=== PATIENT | male | born 1960 | race Caucasian/White ===

== ENCOUNTER → 2018-02-22 10:36 | Outpatient (CLI) | payer OTHER, SELFPAY | PROVIDERS: Visit Provider Family Medicine | DX: R07.1 Chest pain on breathing (principal) | CPT/HCPCS: 93017; 93350 ==

== ENCOUNTER → 2020-03-05 | Outpatient (CLI) | payer OTHER, SELFPAY ==
[2020-03-05 08:26] LABS: Cholesterol 161 mg/dL (200); High Density Lipoprotein 54 mg/dL; PSA,Total - Annual Screen 2.73 ng/mL (0.00-4.00); Triglycerides 57 mg/dL; Very Low Density Lipoprotein 11 mg/dL (5-40)
[2020-03-05 08:56] LABS: Hemoglobin A1c 5.5 % (3.8-5.6)
== END | disposition home or self-care (01) ==
LOC: LAB 06:20
PROVIDERS: PCP Family Medicine
DX: E74.39 Other disorders of intestinal carbohydrate absorption (principal); Z12.5 Encounter for screening for malignant neoplasm of prostate; Z13.220 Encounter for screening for lipoid disorders
CPT/HCPCS: 36415; 80061; 83036; 84153; G0103

== ENCOUNTER 2020-12-08 11:07 | Emergency (ER) | payer OTHER, SELFPAY ==
[2020-12-08 11:07] VITALS: BP 147/84; PULSE 78; RESP 16; TEMP 36.8; O2SAT 100; BMI 28.5
--- NOTE | 2020-12-08 11:16 | US_ITS ---
STUDY: SCROTUM ULTRASOUND REASON FOR EXAM: Male, 60 years old. RT SIDED TESTICULAR PAIN TECHNIQUE: Ultrasound evaluation of the scrotum was performed with color Doppler and static childs-scale imaging. COMPARISON: None. FINDINGS: RIGHT TESTICLE INTRATESTICULAR: There is a normal size of the right testicle. The right testicle measures 4.4 x 3.8 x 1.9 cm. There is a homogenous echotexture. There is normal arterial and normal venous vascularity. There is no demonstrated right testicular mass or cyst. EXTRATESTICULAR: The epididymis is normal in size. The epididymis head measures 1.1 x 1.2 x 0.9 cm. There is normal vascularity of the epididymis. There is no demonstrated epididymal cystic structure. There is no demonstrated hydrocele. There is no demonstrated varicocele. There is no demonstrated extratesticular mass or cyst. LEFT TESTICLE INTRATESTICULAR: There is a normal size of the left testicle. The left testicle measures 4.7 x 2.4 x 2.1 cm. There is a homogenous echotexture. There is normal arterial and normal venous vascularity. There is no demonstrated left testicular mass or cyst. EXTRATESTICULAR: The epididymis is 1.0 x 1.6 x 0.7 The epididymis head measures cm. There is normal vascularity of the epididymis. There is no demonstrated epididymal cystic structure. There is no demonstrated hydrocele. There is no demonstrated varicocele. There is no demonstrated extratesticular mass or cyst. US/Testicular with Arterial Flow IMPRESSION: Normal bilateral testicles. Electronically Signed: Tyrone Walker MD at 12:21 EDT Tel , Service support ,
--- NOTE | 2020-12-08 11:17 | EDS_ITS ---
HPI History of Present Illness Chief Complaint: Male Pain/Injury Informant: patient Pain Onset: Days Context: Gradual Onset Timing: Intermittent Current Severity: Moderate Maximum Severity: Moderate Appearance Lesion(s): No Genital Edema: No Penile Discharge Genital Discharge Amount: None Urinary Symptoms Genitourinary Symptoms: Urgency, Frequency and Hematuria Narrative Narrative: Patient presents with dysuria, frequency, and right testicular pain. He states the symptoms began about 4 days ago. He states that he noticed that he was having some increased urinary frequency and urgency. He states that yesterday, he noted some mild hematuria. He states overnight throughout the morning, he began to have increasing pain in his right testicle. He states it hurts to sit and walk. He denies any trauma. He thinks he had a low-grade fever last night. He denies nausea or vomiting. He is otherwise been in his normal state of health. [facility] Medical History Hypertension Scoliosis deformity of spine Home Medications Cetirizine Hcl [Zyrtec] 10 mg PO DAILY 01/02/15 [History Last Taken Unknown] lisinopril 10 mg PO DAILY 01/02/15 [History Last Taken 09/29/15 09:00 10] amlodipine 5 mg PO QHS 12/08/20 [History Last Taken Unknown] ciprofloxacin HCl 500 mg PO BID #20 tablet 12/08/20 [Rx Last Taken Unknown] hydrocodone-acetaminophen 1 tab PO Q6H PRN PRN 3 Days #10 tablet 12/08/20 [Rx Last Taken Unknown] melatonin 10 mg PO QHS 12/08/20 [History Last Taken Unknown] multivitamin with minerals [All Purpose Multivitamin-Min] 1 tab PO DAILY 12/08/20 [History Last Taken Unknown] naproxen 250 mg PO BID 12/08/20 [History Last Taken Unknown] tizanidine 4 mg PO QHS 12/08/20 [History Last Taken Unknown] tramadol 50 mg PO BID PRN 12/08/20 [History Last Taken Unknown] Allergy/AdvReac Type Severity Reaction Status Date / Time orphenadrine citrate AdvReac Severe Hives, Verified 12/08/20 11:09 [From Norflex] restricted airway Family History Mother Heart disease Diabetes type 2, uncontrolled S/P CABG x 4 Glaucoma Father Stage 4 malignant neoplasm of lung Surgical History History of spinal fusion for scoliosis Hx of cholecystectomy Social History Smoking Status: Former smoker ROS ROS ED Constitutional Constitutional ED: Reports fever(s) Eyes Eyes: Denies blurry vision or change in vision ENT ENT ED: Denies ear pain or sore throat Cardiovascular Cardiovascular: Denies chest pain or palpitations Respiratory/Chest Respiratory/Chest: Denies cough, dyspnea or dyspnea on exertion Gastrointestinal Gastrointestinal: Reports nausea Genitourinary Genitourinary ED: Reports dysuria, hematuria and urinary frequency Musculoskeletal Musculoskeletal: Denies arthralgias or myalgias Integumentary Denies rash Neurologic Neurologic: Denies headache(s) or paresthesias Psychiatric Psychiatric: Denies anxiety or depression Endocrine Endocrinology: Denies polydipsia or polyuria Allergic/Immunologic Allergic/Immunologic ED: Denies urticaria EXAM Physical Exam Const Vital Signs: 12/08/20 11:07 Temperature 98.3 F Temperature Source Temporal Pulse Rate 78 Respiratory Rate 16 Blood Pressure 147/84 H Blood Pressure Mean 105 Pulse Ox 100 Oxygen Delivery Method Room Air Positive well nourished and well developed General Appearance ED: well developed HEENT Reports normocephalic, head/scalp atraumatic and moist mucous membranes Eyes PERRL and EOMs intact bilaterally Neck no lymphadenopathy and supple General: Negative for tenderness Chest Wall inspection of chest normal Resp normal respiratory effort and clear to auscultation bilaterally Cardio regular rate, regular rhythm and no murmurs GI normal to inspection, nondistended, normoactive bowel sounds Palpation: Negative for tender, guarding or rebound tenderness present Penis: normal penis Meatus: meatus normal Scrotum: cremasteric reflex present, tenderness, edematous and scrotal swelling Testes: testicular lie normal Back/Spine no CVA tenderness Cervical Spine: Negative for cervical spine tenderness Thoracic Spine / Upper Back: Negative for thoracic spinal tenderness Extremity normal to inspection General Extremety ED: Negative for tenderness Neuro oriented x3 and CN's II-XII intact bilaterally Neuro Narrative: No focal deficits appreciated. Sensorium / Orientation: alert Psych mental status grossly normal Skin no rashes or lesions noted, no wounds and skin turgor normal MDM MDM MDM Narrative Medical decision making narrative: Patient presents to the emergency department for testicular pain, mild nausea, and low-grade fever. Clinically, I do suspect that he has epididymitis. I did obtain ultrasound which showed normal testicles. There is no evidence of torsion. With his history of kidney stone, I did obtain CT. This shows no obstructing stone. His urine does show trace evidence of infection and I did add a culture. I do feel the most prudent thing would be to treat him for an early epididymitis even though his ultrasound was inconclusive. The patient is comfortable with this plan of care. He will be discharged home. Impression 1. Epididymitis Lab Data Attestation: I reviewed the patient's lab results. Labs: Laboratory Results - last 24 hr 12/08/20 13:49 Urine Color Yellow Urine Clarity Clear Urine pH 7.0 Ur Specific [place] 1.005 Urine Protein Negative Urine Glucose (UA) Normal Urine Ketones Negative Urine Occult Blood Negative Urine Nitrite Negative Urine Bilirubin Negative Urine Urobilinogen Normal Ur Leukocyte Esterase 100 H Urine RBC 0-5 SEEN Urine WBC 0-5 SEEN Ur Squamous Epith Cells 0-5 SEEN Urine Bacteria RARE Urine Mucus 0 SEEN Radiography Diagnostic Testing: Radiology Impression Testicular Ultrasound 12/08/20 11:16 IMPRESSION: Normal bilateral testicles. Electronically Signed: Tyrone Walker MD at 12:21 EDT Tel , Service support , Abdomen/Pelvis CT 12/08/20 12:36 IMPRESSION: Multiple nonobstructing right renal stones. Electronically Signed: Tyrone Walker MD at 13:18 EDT Tel , Service support , Discharge Plan Triage Chief Complaint: Male Pain/Injury ED Provider: Joseluis Colunga Dx/Rx/DC Orders Instructions: ED Epididymitis Prescriptions: New hydrocodone-acetaminophen [hydrocodone-acetaminophen] 1 TABLET tablet 1 tab PO Q6H PRN PRN (Reason: Pain) 3 Days Qty: 10 RF: 0 ciprofloxacin HCl [ciprofloxacin HCl] 500 MG tablet 500 mg PO BID Qty: 20 RF: 0 No Action lisinopril 10 MG tablet 10 mg PO DAILY RF: 0 Cetirizine Hcl [Zyrtec] 10 MG tablet 10 mg PO DAILY RF: 0 naproxen 250 mg Tablet 250 mg PO BID RF: 0 tramadol 50 mg Tablet 50 mg PO BID PRN (Reason: Pain) RF: 0 amlodipine 10 mg Tablet 5 mg PO QHS RF: 0 multivitamin with minerals [All Purpose Multivitamin-Min] Tablet 1 tab PO DAILY RF: 0 tizanidine 4 mg Capsule 4 mg PO QHS RF: 0 melatonin 5 mg Tablet 10 mg PO QHS RF: 0 Primary Care Provider: Caesar Ricketts Referrals: Caesar Ricketts MD [Primary Care Provider] -
[2020-12-08] MEDS: Ibuprofen 600 MG Tablet PO (11:32)
--- NOTE | 2020-12-08 12:36 | CT_ITS ---
STUDY: CT ABDOMEN AND PELVIS WITHOUT CONTRAST REASON FOR EXAM: Male, 60 years old. right lq pain, right flank RADIATION DOSAGE (If Supplied By Facility): CTDIvol = ( 13.47 ) mGy, DLP = ( 806.45 ) mGycm TECHNIQUE: Transaxial images were obtained from the dome of the diaphragm to the symphysis pubis without oral contrast, and without intravenous contrast. Sagittal and coronal images were reconstructed. Individualized dose optimization techniques were used for this CT. COMPARISON: None. FINDINGS: The visualized lung bases are unremarkable. The visualized portions of the heart are within normal limits. Normal liver. There are surgical clips in the gallbladder fossa consistent with a prior cholecystectomy. Normal spleen. Normal pancreas. Normal bilateral adrenal glands. Multiple nonobstructing stones the right kidney. No hydronephrosis, ureteral stone, or ureteral dilatation. 2.5 cm cyst lower pole the left kidney. There is a small hiatal hernia. Normal small intestine. Normal colon. The appendix is visualized and appears normal. Normal abdominal aorta. Normal inferior vena cava. Normal retroperitoneum. Normal urinary bladder. There is a small umbilical hernia containing fat. Severe levoscoliosis of the thoracolumbar spine with spinal rods and degenerative disc disease. CT/Abdomen/Pelvis without Cont IMPRESSION: Multiple nonobstructing right renal stones. Electronically Signed: Tyrone Walker MD at 13:18 EDT Tel , Service support ,
[2020-12-08 13:49] LABS: Color, Urine Yellow (Yellow); Glucose, Dipstick Normal (Normal); Ketone-Dipstick Negative (Negative); Leukocyte Esterase-Dipstick 100 /ul (Negative); Mucous, Urine 0 SEEN /hpf (<or=2+); Nitrite-Dipstick Negative (Negative); Occult Blood-Urine Negative /ul (Negative); Protein-Dipstick Negative (Negative); Specific Gravity, Urine 1.005 (1.002-1.030); Urine Bilirubin Dipstick Negative (Negative); Urine Clarity Clear (Clear); Urine Urobilinogen Normal (Normal)
[2020-12-08 13:55] LABS: Bacteria RARE /hpf (None Seen); Red Blood Cells-Urine 0-5 SEEN /hpf (0-5); Squamous Epithelial Cells - UA 0-5 SEEN /hpf (0-5); White Blood Cells 0-5 SEEN /hpf (0-5)
== END 2020-12-08 14:15 | disposition home or self-care (01) ==
LOC: ED 13:08
PROVIDERS: Emergency Provider Emergency Medicine; PCP Family Medicine
DX: N45.1 Epididymitis (principal); I10 Essential (primary) hypertension; Z79.899 Other long term (current) drug therapy; Z87.891 Personal history of nicotine dependence
CPT/HCPCS: 74176; 76870; 81001; 87086; 93976; 99282

== ENCOUNTER 2020-12-26 08:23 | Emergency (ER) | payer OTHER, SELFPAY ==
[2020-12-26 08:23] VITALS: BP 140/96; PULSE 79; RESP 16; TEMP 36.1; O2SAT 97; BMI 28.4
--- NOTE | 2020-12-26 08:46 | EX.ED.DYSGE1 ---
HPI History of Present Illness Chief Complaint: Lower Extremity Injury Detail of Chief Complaint: Sciatica pain x2 days Informant: patient Onset/Context/Timing Current Severity: Severe Narrative Narrative: Patient with history of sciatica. Presents with worsening pain for 2 days. Patient states that he got on the floor this morning the stretch and had a hard time getting back up because of the amount of pain. He has a history of chronic back pain and is currently in pain management with Dr. Morse. Patient states that has been without his tramadol and muscle relaxer for the last month because he missed an appointment due to work and could not reschedule. Patient has an appointment to see his pain management doctor in 4 days. Patient denies weakness of the extremities. He denies change in bowel or bladder function. He denies paresthesias. Patient has history of Atkinson rods in his back. Patient states his last MRI was about 2 years ago did not show any significant herniations. Prior similar symptoms: Yes PFSH [facility] Medical History Hypertension Scoliosis deformity of spine Home Medications Cetirizine Hcl [Zyrtec] 10 mg PO DAILY 01/02/15 [History Last Taken Unknown] lisinopril 10 mg PO DAILY 01/02/15 [History Last Taken 09/29/15 09:00 10] amlodipine 5 mg PO QHS 12/08/20 [History Last Taken Unknown] ciprofloxacin HCl 500 mg PO BID #20 tablet 12/08/20 [Rx Last Taken Unknown] hydrocodone-acetaminophen 1 tab PO Q6H PRN PRN 3 Days #10 tablet 12/08/20 [Rx Last Taken Unknown] melatonin 10 mg PO QHS 12/08/20 [History Last Taken Unknown] multivitamin with minerals [All Purpose Multivitamin-Min] 1 tab PO DAILY 12/08/20 [History Last Taken Unknown] naproxen 250 mg PO BID 12/08/20 [History Last Taken Unknown] tizanidine 4 mg PO QHS 12/08/20 [History Last Taken Unknown] tramadol 50 mg PO BID PRN 12/08/20 [History Last Taken Unknown] gabapentin 300 mg PO BID #8 cap 12/26/20 [Rx Last Taken Unknown] tizanidine [Zanaflex] 4 mg PO QHS #5 cap 12/26/20 [Rx Last Taken Unknown] tramadol 50 mg PO BID PRN #20 tab 12/26/20 [Rx Last Taken Unknown] Allergy/AdvReac Type Severity Reaction Status Date / Time orphenadrine citrate AdvReac Severe Hives, Verified 12/26/20 08:23 [From Norflex] restricted airway Family History Mother Heart disease Diabetes type 2, uncontrolled S/P CABG x 4 Glaucoma Father Stage 4 malignant neoplasm of lung Surgical History History of spinal fusion for scoliosis Hx of cholecystectomy Social History Smoking Status: Former smoker ROS ROS ED Constitutional Constitutional ED: Reports systems reviewed and no addt'l complaints, except as documented; Denies body ache(s), change in weight or chills Eyes Eyes: Denies acute decrease in peripheral vision, change in vision, double vision or loss of vision ENT ENT ED: Reports none; Denies ear pain, lip swelling, loss taste/smell, neck pain, otalgia or sore throat Cardiovascular Cardiovascular: Reports none; Denies abdominal pain, chest pain with activity, leg edema, lightheadedness, palpitations, rapid heart rate or syncope Respiratory/Chest Respiratory/Chest: Reports none; Denies change in mental status, dry cough, dyspnea, hemoptysis, shortness of breath at rest or shortness of breath with exertion Gastrointestinal Gastrointestinal: Reports none; Denies abdominal pain, change in stool character, diarrhea, hematemesis, hematochezia, melena, rectal bleeding or vomiting Genitourinary Genitourinary ED: Reports none; Denies abdominal discomfort, anuria, dysuria, genital pain or polyuria Musculoskeletal Musculoskeletal: Reports none, back pain and other Details: Left leg pain ; Denies arthralgias, difficulty walking, extremity pain, muscle weakness or myalgias Integumentary Reports none; Denies abscess or rash Neurologic Neurologic: Reports none; Denies abnormal gait, confusion, focal weakness, frequent falls, headache(s), loss of vision, numbness, paresthesias, radicular pain, vertigo or weakness Psychiatric Psychiatric: Reports systems reviewed and no addt'l complaints, except as documented and none; Denies behavioral changes, confusion, difficulty concentrating, hallucinations, suicidal ideation, tactile hallucinations or visual hallucinations Endocrine Endocrinology: Denies none, cold intolerance, excessive sweating, fatigue or heat intolerance Hematologic/Lymphatic Hematologic/Lymphatic: Reports none; Denies anemia, easy bleeding or easy bruising Allergic/Immunologic Allergic/Immunologic ED: Denies as per HPI, none, lip swelling, mouth swelling, throat swelling, tongue swelling or hives EXAM Physical Exam Const Vital Signs: 12/26/20 08:23 Temperature 97 F L Temperature Source Temporal Pulse Rate 79 Respiratory Rate 16 Blood Pressure 140/96 H Blood Pressure Mean 110 Pulse Ox 97 Oxygen Delivery Method Room Air Positive well nourished and well developed General Appearance ED: well developed and NAD HEENT Reports TM's clear and moist mucous membranes normocephalic and atraumatic; Negative for trauma or tenderness Tympanic Membrane ED: Yes TM's clear Eyes PERRL and EOMs intact bilaterally General Eye ED: Negative for pale conjunctiva or scleral icterus Neck no lymphadenopathy, supple and no JVD General: Negative for tenderness Chest Wall inspection of chest normal and palpation of chest normal Chest: Negative for tenderness Resp normal respiratory effort and clear to auscultation bilaterally Effort and Inspection: Negative for respiratory distress or pain with movement Auscultation: Negative for rhonchi, wheezes or diminished lung sounds Cardio regular rate, regular rhythm, S1 normal heart sound, S2 normal heart sound and no murmurs Peripheral Pulses: pulses 2+ throughout GI normal to inspection, nondistended, normoactive bowel sounds, soft to palpation, non-tender, non-distended and no masses Back/Spine no CVA tenderness and no thoracic nor lumbar tenderness Back/Spine Narrative: Patient has no real tenderness to the lumbar spine or paraspinal musculature. He does have a positive straight leg raise while supine at about 45 degrees. Patient has deep tendon reflexes that are plus 1 out of 4 bilaterally at the patella and Achilles. Patient has normal 5 extension bilaterally. Patient has normal sensation to light touch bilaterally. Extremity normal to inspection General Extremety ED: Negative for edema General Extremity: Negative for edema Neuro oriented x3, CN's II-XII intact bilaterally, no sensory deficits noted and gait normal Sensorium / Orientation: awake, alert, oriented to person, oriented to place and oriented to time Motor Exam: strength 5/5 throughout and strength abnormal Psych mental status grossly normal Skin no rashes or lesions noted and no wounds MDM MDM MDM Narrative Medical decision making narrative: Patient without signs or symptoms of cauda equina. No red flags noted. Patient case discussed with his touch up painter who recommended refilling his medications until he can be seen in 4 days. Patient received Dilaudid and Toradol in the emergency department and and he had good pain relief with that. Discharge Plan Triage Chief Complaint: Lower Extremity Injury ED Provider: Speedy Roger Dx/Rx/DC Orders Clinical Impression: Sciatica Instructions: ED Sciatica Prescriptions: New tramadol 50 mg tablet 50 mg PO BID PRN (Reason: pain) Qty: 20 RF: 0 tizanidine [Zanaflex] 4 mg capsule 4 mg PO QHS Qty: 5 RF: 0 gabapentin 300 mg capsule 300 mg PO BID Qty: 8 RF: 0 No Action lisinopril 10 MG tablet 10 mg PO DAILY RF: 0 Cetirizine Hcl [Zyrtec] 10 MG tablet 10 mg PO DAILY RF: 0 hydrocodone-acetaminophen [hydrocodone-acetaminophen] 1 TABLET tablet 1 tab PO Q6H PRN PRN (Reason: Pain) 3 Days Qty: 10 RF: 0 ciprofloxacin HCl [ciprofloxacin HCl] 500 MG tablet 500 mg PO BID Qty: 20 RF: 0 naproxen 250 mg Tablet 250 mg PO BID RF: 0 tramadol 50 mg Tablet 50 mg PO BID PRN (Reason: Pain) RF: 0 amlodipine 10 mg Tablet 5 mg PO QHS RF: 0 multivitamin with minerals [All Purpose Multivitamin-Min] Tablet 1 tab PO DAILY RF: 0 tizanidine 4 mg Capsule 4 mg PO QHS RF: 0 melatonin 5 mg Tablet 10 mg PO QHS RF: 0 Primary Care Provider: Caesar Ricketts Referrals: Terrance Morse MD [STAFF PHYSICIAN] - Keep Charli appointment Caesar Ricketts MD [Primary Care Provider] - Disposition Disposition: Home, Self Care
[2020-12-26] MEDS: Ondansetron 4 MG/2 ML Vial IM (08:59)
[2020-12-26] MEDS: Ketorolac 30 MG/ML Syringe IM (08:59)
[2020-12-26] MEDS: HYDROmorphone 1 MG/ML Syringe IM (09:00)
== END 2020-12-26 09:40 | disposition home or self-care (01) ==
PROVIDERS: Emergency Provider Emergency Medicine; PCP Family Medicine
DX: M54.40 Lumbago with sciatica, unspecified side (principal); I10 Essential (primary) hypertension; Z79.899 Other long term (current) drug therapy; Z87.891 Personal history of nicotine dependence
CPT/HCPCS: 96372; 99282; J2405

== ENCOUNTER → 2021-03-19 15:15 | Outpatient (CLI) | payer OTHER, SELFPAY ==
[2021-03-19 18:17] LABS: Amphetamine Urine VISTA NEGATIVE (<1000 ng/mL); Barbiturate Urine VISTA NEGATIVE (< 200 ng/mL); Benzodiazepine Urine VISTA NEGATIVE (< 200 ng/mL); Cocaine Urine VISTA NEGATIVE (< 300 ng/mL); Ecstacy Urine VISTA NEGATIVE (< 500 ng/mL); Methadone Urine VISTA NEGATIVE (< 300 ng/mL); PCP Urine VISTA NEGATIVE (< 25 ng/mL); THC Urine VISTA NEGATIVE (< 50 ng/mL); Vista UDS pH Range 5
== END ==
PROVIDERS: PCP Family Medicine Geriatric Medicine; Referring Provider Anesthesiology Pain Medicine; Visit Provider Anesthesiology Pain Medicine
DX: F11.20 Opioid dependence, uncomplicated (principal)
CPT/HCPCS: 80307

== ENCOUNTER 2021-11-01 13:07 | Emergency (ER) | payer OTHER, SELFPAY ==
[2021-11-01 13:08] VITALS: BP 174/102; PULSE 57; RESP 16; TEMP 36.1; O2SAT 99; BMI 27.3
--- NOTE | 2021-11-01 13:31 | ED.VIS.GI ---
HPI HPI - GI History of Present Illness Chief Complaint: Abd Pain Informant: patient Abdominal Pain/Flank Pain Onset: Today Context: Sudden Onset Timing: Continuous Quality: Cramping Location: RLQ Worsened by: Nothing Relieved by: Nothing Nausea/Vomiting/Emesis GI Symptom: Negative for Nausea and Vomiting Diarrhea/Melena/Hematochezia GI Symptom: Negative for Diarrhea, Melena and Hematochezia Associated Symptoms Associated Symptoms: Negative for Dysuria, Frequency and Hematuria Narrative Narrative: Patient presents with abdominal pain that began today. Patient states it began rather suddenly after eating lunch. Patient states it started in the right lower quadrant. Patient states it has remained in the right lower quadrant. Patient states nothing makes it better nothing makes it worse. Patient describes the pain as cramping and spasms. Patient denies any nausea or vomiting. Patient denies any diarrhea, melena, or hematochezia. Patient denies any dysuria, hematuria, or frequency. PFSH PFSH Medical History Hypertension Scoliosis deformity of spine Home Medications Cetirizine Hcl [Zyrtec] 10 mg PO DAILY 01/02/15 [History Last Taken Unknown] lisinopril 10 mg PO DAILY 01/02/15 [History Last Taken 09/29/15 09:00 10] amlodipine 5 mg PO QHS 12/08/20 [History Last Taken Unknown] melatonin 10 mg PO QHS PRN 12/08/20 [History Last Taken Unknown] multivitamin with minerals [All Purpose Multivitamin-Min] 1 tab PO DAILY 12/08/20 [History Last Taken Unknown] gabapentin 300 mg PO 4X/DAY 11/01/21 [History Last Taken Unknown] hydrocodone-acetaminophen 1 tab PO Q6H PRN PRN 3 Days #10 tablet 11/01/21 [Rx Last Taken Unknown] tizanidine [Zanaflex] 4 mg PO BID 11/01/21 [History Last Taken Unknown] tramadol 50 mg PO TID PRN 11/01/21 [History Last Taken Unknown] Allergy/AdvReac Type Severity Reaction Status Date / Time orphenadrine citrate AdvReac Severe Hives, Verified 11/01/21 13:07 [From Norflex] restricted airway Family History Mother Heart disease Diabetes type 2, uncontrolled S/P CABG x 4 Glaucoma Father Stage 4 malignant neoplasm of lung Surgical History History of spinal fusion for scoliosis Hx of cholecystectomy Social History Smoking Status: Former smoker ROS ROS ED Constitutional Constitutional ED: Denies chills or fever(s) Eyes Eyes: Denies blurry vision or change in vision ENT ENT ED: Denies rhinorrhea or sore throat Cardiovascular Cardiovascular: Denies chest pain or palpitations Respiratory/Chest Respiratory/Chest: Denies cough or dyspnea Gastrointestinal Gastrointestinal: Reports abdominal pain; Denies nausea or vomiting Genitourinary Genitourinary ED: Denies dysuria or hematuria Musculoskeletal Musculoskeletal: Reports back pain; Denies neck pain Integumentary Denies abscess or rash Neurologic Neurologic: Denies headache(s) or weakness Allergic/Immunologic Allergic/Immunologic ED: Denies mouth swelling or urticaria EXAM Physical Exam Const Vital Signs: 11/01/21 13:08 Temperature 97.0 F L Temperature Source Temporal Pulse Rate 57 L Respiratory Rate 16 Blood Pressure 174/102 H Blood Pressure Mean 126 Pulse Ox 99 Oxygen Delivery Method Room Air Positive well nourished and well developed General Appearance ED: well developed HEENT Reports moist mucous membranes Neck supple and no JVD Resp normal respiratory effort and clear to auscultation bilaterally Cardio regular rate, regular rhythm and no murmurs GI normal to inspection, nondistended, normoactive bowel sounds and non-distended Auscultation: normoactive bowel sounds Palpation: soft and tender RLQ; Negative for guarding or rebound tenderness present Extremity normal to inspection General Extremety ED: Negative for edema or tenderness General Extremity: Negative for edema Neuro oriented x3, CN's II-XII intact bilaterally and no sensory deficits noted Sensorium / Orientation: alert Motor Exam: strength 5/5 throughout Psych mental status grossly normal Skin no rashes or lesions noted MDM MDM MDM Narrative Medical decision making narrative: Given IV fluids, morphine, and Zofran. CBC was within normal limits. Comprehensive metabolic profile showed an elevated glucose of 179. The remainder was within normal limits. Urinalysis does not show any evidence for urinary tract infection. Occult blood was 250. Patient was still having persistent pain. Patient was given a repeat dose of morphine and Toradol. CT scan of the abdomen pelvis was obtained. There is a 3.2 mm stone in the midportion of the right ureter causing hydronephrosis and hydroureter. There are nonobstructive bilateral renal calculi. There is a 2.9 x 2.8 cm left renal cyst. This was interpreted by the radiologist and reviewed by myself. Patient was given a prescription for [place]. Patient was instructed to drink plenty of fluids. Patient was instructed to follow-up with his primary care physician in 5 to 7 days. Patient was also given a referral for urology. Patient understood and was agreeable with the plan. All questions were answered. Lab Data Attestation: I reviewed the patient's lab results. Labs: Laboratory Results - last 24 hr 11/01/21 11/01/21 11/01/21 13:55 13:55 14:50 WBC 4.9 RBC 5.19 Hgb 15.3 Hct 46.4 MCV 89.4 MCH 29.5 MCHC 33.0 RDW Std Deviation 42.9 RDW Coeff of Barrett 13.1 Plt Count 221 MPV 9.7 Immature Gran % (Auto) 0.200 Neut % (Auto) 69.5 Lymph % (Auto) 22.4 [place] % (Auto) 5.5 Eos % (Auto) 1.8 Baso % (Auto) 0.6 Absolute Neuts (auto) 3.4 Absolute Lymphs (auto) 1.10 Nucleated RBC % 0 Sodium 143 Potassium 3.9 Chloride 106 Carbon Dioxide 32.0 Anion Gap 5 BUN 13 Creatinine 1.02 Estim Creat Clear Calc 82.03 Est GFR (MDRD) Af Amer 96 Est GFR (MDRD) Non-Af 79 BUN/Creatinine Ratio 12.7 Glucose 179 H Calcium 9.1 Total Bilirubin 1.10 H AST 17 ALT 30 Alkaline Phosphatase 75 Total Protein 7.8 Albumin 4.3 Globulin 3.5 Albumin/Globulin Ratio 1.2 Urine Color Yellow Urine Clarity Sl. Cloudy Urine pH 7.0 Ur Specific [place] 1.010 Urine Protein Negative Urine Glucose (UA) Normal Urine Ketones Negative Urine Occult Blood 250 H Urine Nitrite Negative Urine Bilirubin Negative Urine Urobilinogen Normal Ur Leukocyte Esterase Negative Radiography Diagnostic Testing: Clinical Impression(s) from Imaging Studies Abdomen/Pelvis CT 11/01/21 13:35 IMPRESSION: 3.2 mm calculus in the midportion right ureter causing mild right hydronephrosis and hydroureter. Tiny nonobstructive bilateral intrarenal calculi. 2.9 cm x 2.8 cm cyst in the lower pole of the left kidney. Electronically Signed: Larry Robison MD at 14:45 EDT , Discharge Plan Triage Chief Complaint: Abd Pain ED Provider: Sid Hernandez Dx/Rx/DC Orders Clinical Impression: Calculus of right ureter, Hydronephrosis, right Instructions: ED Kidney Stone w/ Colic Prescriptions: New hydrocodone-acetaminophen [hydrocodone-acetaminophen] 1 TABLET tablet 1 tab PO Q6H PRN PRN (Reason: Pain) 3 Days Qty: 10 RF: 0 No Action lisinopril 10 MG tablet 10 mg PO DAILY RF: 0 Cetirizine Hcl [Zyrtec] 10 MG tablet 10 mg PO DAILY RF: 0 tramadol 50 mg tablet 50 mg PO TID PRN (Reason: Pain) RF: 0 gabapentin 300 mg capsule 300 mg PO 4X/DAY RF: 0 tizanidine [Zanaflex] 4 mg capsule 4 mg PO BID RF: 0 amlodipine 10 mg Tablet 5 mg PO QHS RF: 0 All Purpose Multivitamin-Min Tablet 1 tab PO DAILY RF: 0 melatonin 5 mg Tablet 10 mg PO QHS PRN (Reason: Sleep) RF: 0 Primary Care Provider: Roney Das Referrals: Lucas Rich MD [STAFF PHYSICIAN] - 3-5 Days Roney Das MD [Primary Care Provider] - 3-5 Days Disposition Disposition: Home, Self Care
--- NOTE | 2021-11-01 13:35 | CT_ITS ---
STUDY: CT ABDOMEN AND PELVIS WITHOUT CONTRAST REASON FOR EXAM: Male, 61 years old. Sudden onset of right lower quadrant pain. RADIATION DOSAGE (If Supplied By Facility): CTDIvol = ( 15.01 ) mGy, DLP = ( 724.51 ) mGycm TECHNIQUE: Transaxial images were obtained from the dome of the diaphragm to the symphysis pubis without oral contrast, and without intravenous contrast. Sagittal and coronal images were reconstructed. Individualized dose optimization techniques were used for this CT. COMPARISON: Comparison is made with prior study dated 12/08/2020. FINDINGS: Stable minimal increased markings at the lung bases suggestive of a mildly atelectasis and/or scarring. The visualized portions of the heart are within normal limits. There is decreased attenuation of the liver consistent with steatosis. There are surgical clips in the gallbladder fossa consistent with a prior cholecystectomy. Normal spleen. Normal pancreas. Normal bilateral adrenal glands. There is a 3.5 mm calculus in the upper pole calyx of the right kidney. Mild degree of right hydronephrosis and right hydroureter due to a 3.2 mm calculus in the midportion of the right ureter. There is evidence of a right periureteric stranding. Tiny nonobstructive calculi in the lower pole calyx of the right kidney. Tiny nonobstructive calculus in the lower pole calyx of the left kidney. There is a 2.9 cm x 2.8 cm cyst in the lower pole of the left kidney. Normal visualized stomach. Normal small intestine. There are multiple colonic diverticula consistent with diverticulosis. The appendix is visualized and appears normal. There is scattered atherosclerotic calcification of the abdominal aorta, without a demonstrated aneurysm. Normal inferior vena cava. Normal retroperitoneum. Normal urinary bladder. There is enlargement of the prostate gland. The prostate measures 4.6 cm x 4.8 cm. Small bilateral inguinal hernias containing fat. There are diffuse degenerative changes of the visualized lumbar spine. Levoscoliosis. Status post PRESTON ramya fixation of the thoracolumbar spine. CT/Abdomen/Pelvis without Cont IMPRESSION: 3.2 mm calculus in the midportion right ureter causing mild right hydronephrosis and hydroureter. Tiny nonobstructive bilateral intrarenal calculi. 2.9 cm x 2.8 cm cyst in the lower pole of the left kidney. Electronically Signed: Larry Robison MD at 14:45 EDT ,
[2021-11-01] MEDS: Ondansetron 4 MG/2 ML Vial IV (13:51)
[2021-11-01] MEDS: 0.9% Normal Saline 1,000 ML 1000 ML IV (13:51)
[2021-11-01] MEDS: Morphine 2 MG/ML Syringe IV (13:52)
[2021-11-01 14:14] LABS: Absolute Neutrophil Count 3.4 X10^3/uL (2.0-7.7); Basophil# 0.03 X10^3/uL; Basophil% 0.6 % (0-1); Eosinophil# 0.09 X10^3/uL; Eosinophils% 1.8 % (0-5); Hematocrit 46.4 % (40-54); Hemoglobin 15.3 g/dL (13.0-16.5); Lymphocyte % 22.4 % (19-41); Mean Corpuscular Hgb 29.5 pg (27.0-32.0); Mean Corpuscular Volume 89.4 fL (80-94); Mean Platelet Vol. 9.7 fl (6.2-12.0); Monocyte# 0.27 X10^3/uL; Monocyte% 5.5 % (0-10); NRBC Flagged by Analyzer 0 % (0-5); Neutrophil # 3.41 X10^3/uL (2.7-7.7); Neutrophil % 69.5 % (47-70); Platelet Count 221 K/mm3 (150-450); RBC Distribution Width CV 13.1 % (11.6-14.6); RBC Distribution Width SD 42.9 fl (35.1-43.9); Red Blood Count 5.19 M/mm3 (4.6-6.2); White Blood Count 4.9 K/mm3 (4.4-11.0)
[2021-11-01 14:30] LABS: ALB/GLOB Ratio 1.2 RATIO (0.9-2.4); AST(SGOT) 17 U/L (15-37); Alanine Aminotransfer ALT/SGPT 30 U/L (16-61); Albumin, Serum 4.3 g/dL (3.2-5.0); Alkaline Phosphatase 75 U/L (45-117); Anion Gap 5 (5-15); BUN 13 mg/dL (7-18); BUN/Creat Ratio 12.7 RATIO (10-20); Calcium,Total 9.1 mg/dL (8.5-10.1); Chloride 106 mmol/L (98-107); Creatinine, Serum 1.02 mg/dL (0.70-1.30); EST Glomerular Filtration Rate 79 mL/min (>60); Est Glom Filt Rate - Afr Amer 96 mL/min (>60); Estimated Creatinine Clearance 82.03 ml/min; Globulin 3.5 g/dL (2.2-4.2); Glucose 179 mg/dL (74-106); Potassium 3.9 mmol/L (3.5-5.1); Protein, Total 7.8 g/dL (6.4-8.2); Sodium Level 143 mmol/L (136-145)
[2021-11-01 15:00] LABS: Bacteria 0 SEEN /hpf (None Seen); Mucous, Urine 0 SEEN /hpf (<or=2+)
[2021-11-01] MEDS: Morphine 4 MG/ML Syringe IV (15:01)
[2021-11-01] MEDS: Ketorolac 30 MG/ML Syringe IV (15:01)
[2021-11-01 15:05] LABS: Color, Urine Yellow (Yellow); Glucose, Dipstick Normal (Normal); Ketone-Dipstick Negative (Negative); Leukocyte Esterase-Dipstick Negative /ul (Negative); Nitrite-Dipstick Negative (Negative); Occult Blood-Urine 250 /ul (Negative); Protein-Dipstick Negative (Negative); Urine Bilirubin Dipstick Negative (Negative); Urine Clarity Sl. Cloudy (Clear); Urine Urobilinogen Normal (Normal)
[2021-11-01 15:15] LABS: Red Blood Cells-Urine 50-100 SEEN /hpf (0-5); Squamous Epithelial Cells - UA 0-5 SEEN /hpf (0-5); White Blood Cells 0-5 SEEN /hpf (0-5)
[2021-11-01 15:36] VITALS: PULSE 62; RESP 17; O2SAT 98
== END 2021-11-01 15:37 | disposition home or self-care (01) ==
PROVIDERS: Emergency Provider Emergency Medicine; PCP Family Medicine Geriatric Medicine; Visit Provider Emergency Medicine
DX: N13.2 Hydronephrosis with renal and ureteral calculous obstruction (principal); I10 Essential (primary) hypertension; Z87.891 Personal history of nicotine dependence; N28.1 Cyst of kidney, acquired; Z79.899 Other long term (current) drug therapy
CPT/HCPCS: 74176; 80053; 81001; 85025; 96361; 96374; 96375; 96376; 99283; J7030; A4216; J2405

== ENCOUNTER 2021-11-12 12:09 | Day surgery (SDC) | payer OTHER, SELFPAY ==
[2021-11-12] VITALS (8 sets, daily range): BP systolic 122–158; BP diastolic 82–96; PULSE 58–69; RESP 16; TEMP 36.5–36.6; O2SAT 97–100; BMI 26.7
--- NOTE | 2021-11-12 12:15 | RAD_ITS ---
INDICATION: PRE OP EXAMINATION/TECHNIQUE: X-RAY - XR Abdomen 1 View COMPARISON: CT abdomen pelvis without contrast from 11/01/2021 FINDINGS: There is a 3 mm calcific density in the expected location of the right mid to distal ureter which likely correlates with the previously seen calculus. The nonobstructing calculi in the kidneys are not well visualized on this study. Nonobstructive bowel gas pattern. Cholecystectomy clips in the right upper abdomen. Marked scoliotic curvature of the thoracolumbar spine with fixation rods in place. No acute findings in the bones or soft tissues. RAD/Abdomen Single View IMPRESSION: 3 mm calcific density in the expected location of the right mid to distal ureter likely correlates to the previously seen calculus. Electronically Signed: Senthil Ruiz, at 13:00 EDT ,
[2021-11-12] MEDS: Lactated Ringers 1,000 ML 15 ML IV ×2 (12:39→14:54)
--- NOTE | 2021-11-12 13:20 | DCINST_ITS ---
Discharge Instructions Diet Discharge Diet: No restrictions Activity Discharge Activity: Return to Normal Activity and May Not Drive (while taking narcotic pain medications.) Dressing / Incision Call your doctor if you observe: Fever of 101 or Higher Follow Up Care Please Follow Up With: Lucas Rich MD When: Call [phone] for an appointment Test Results: Test results from this visit will be discussed in further detail at your follow-up appointment, if applicable. Discharge Plan Admission Primary Reason for Your Visit: Right ESWL Attending Provider: Lucas Rich Primary Care Provider: Roney Das Discharge Orders/Prescriptions Prescriptions: New oxycodone-acetaminophen 5-325 mg tablet 1 tab PO Q6H PRN (Reason: pain) 7 Days Qty: 14 RF: 0 Continued lisinopril 10 MG tablet 20 mg PO DAILY RF: 0 Cetirizine Hcl [Zyrtec] 10 MG tablet 10 mg PO DAILY RF: 0 tramadol 50 mg tablet 50 mg PO TID RF: 0 gabapentin 300 mg capsule 300 mg PO 4X/DAY RF: 0 tizanidine [Zanaflex] 4 mg capsule 4 mg PO BID RF: 0 acetaminophen 650 mg Tablet Extended Release 1,000 mg PO Q12H PRN (Reason: Pain) RF: 0 amlodipine 10 mg Tablet 5 mg PO QHS RF: 0 multivitamin with minerals Tablet 1 tab PO DAILY RF: 0 melatonin 5 mg Tablet 10 mg PO QHS PRN (Reason: Sleep) RF: 0 Other Ambulatory Orders: Abdomen Single View (Routine) Timeframe: [id number] Facility: [facility] - Location: [facility] Ordered By: Dr. Lucas Rich Referrals / Follow Up: Lucas Rich MD [STAFF PHYSICIAN] - Roney Das MD [Primary Care Provider] - Disposition Disposition (needs filled in before D/C Order can be placed): Home, Self Care
--- NOTE | 2021-11-12 13:20 | PCM.HP.STD ---
HPI - General HPI Narrative HARJIT CALVILLO, is a 61 M who presents for treatment of a right ureteral calculi PFSH Medical History (Updated 11/12/21 @ 13:[address] Lucas Rich MD) Alcohol use Arthritis Back pain Cancer CPAP (continuous positive airway pressure) dependence Former smoker Heartburn Hematoma History of edema History of stress test Hypertension Leg cramps Restless legs Scoliosis deformity of spine Wears glasses Home Medications Cetirizine Hcl [Zyrtec] 10 mg PO DAILY 01/02/15 [History Last Taken Unknown] lisinopril 20 mg PO DAILY 01/02/15 [History Last Taken 11/12/21] amlodipine 5 mg PO QHS 12/08/20 [History Last Taken Unknown] melatonin 10 mg PO QHS PRN 12/08/20 [History Last Taken Unknown] multivitamin with minerals 1 tab PO DAILY 12/08/20 [History Last Taken Unknown] gabapentin 300 mg PO 4X/DAY 11/01/21 [History Last Taken 11/12/21] tizanidine [Zanaflex] 4 mg PO BID 11/01/21 [History Last Taken Unknown] tramadol 50 mg PO TID 11/01/21 [History Last Taken 11/12/21] acetaminophen 1,000 mg PO Q12H PRN 11/10/21 [History Last Taken Unknown] oxycodone-acetaminophen 1 tab PO Q6H PRN 7 Days #14 tab 11/12/21 [Rx Last Taken Unknown] Allergy/AdvReac Type Severity Reaction Status Date / Time orphenadrine citrate Allergy Severe Hives, Verified 11/12/21 12:34 [From Norflex] restricted airway tamsulosin [From Flomax] AdvReac PT UNSURE Verified 11/12/21 12:34 OF REACTION Family History Mother Heart disease Diabetes type 2, uncontrolled S/P CABG x 4 Glaucoma Father Stage 4 malignant neoplasm of lung Surgical History (Updated 11/10/21 @ 09:37 by Modesta Bustos) History of spinal fusion for scoliosis Hx of cholecystectomy Hx of excision of mass Hx of toe surgery Hx of toe surgery Social History Smoking Status: Former smoker Vital Signs Vital Signs Vital Signs: 11/12/21 12:35 Temperature 97.8 F Temperature Source Temporal Pulse Rate 65 Respiratory Rate 16 Respiratory Pattern Normal Blood Pressure 141/85 H Blood Pressure Mean 103 Blood Pressure Source Monitor Blood Pressure Position Semi-Fowlers Blood Pressure Location Left Arm Pulse Ox 100 Oxygen Delivery Method Room Air Weight Weight: 86.908 kg Body Mass Index (BMI) 26.7 Results Radiology Impression KUB X-Ray 11/12/21 12:15 IMPRESSION: 3 mm calcific density in the expected location of the right mid to distal ureter likely correlates to the previously seen calculus. Electronically Signed: Senthil Ruiz, at 13:00 EDT ,
[2021-11-12] MEDS: Cefazolin 2 GM in 0.9% Normal Saline 100 ML IV (13:27)
--- NOTE | 2021-11-12 14:06 | PCM.OPRPT ---
Report of Operation Date of Procedure: 11/12/21 Pre-Operative Diagnosis: right ureteral calculi Post-Operative Diagnosis: same Surgery/Procedure Performed:: cystoscopy and placement of ureteral catheter, right ESWL Description of Surgical Findings:: Patient presents to the hospital for treatment of a kidney stone with shockwave lithotripsy. In the preoperative area and x-ray was done to confirm the location of the stone. The x-ray was reviewed and the stone location was reviewed. In the preoperative setting I spoke with the patient regarding the treatment of the stone how the treatment would be conducted and the expectations after surgery. The patient understands there is a risk of bleeding and infection. Also discussed the very rare risk of hematoma or damage to the kidney. We also discussed the risk that the shockwave machine will fail to break the stone adequately and that the patient may need other surgical procedures. We also discussed the possibility that the patient may need a stent after the procedure. After reviewing the procedure with the patient, the patient is signed the consent form all the patient's questions were addressed and was taken back to the operating room for treatment of a kidney stone. Patient was taken back to the operating room, patient was identified by the nursing staff, we identified the side of the treatment and the patient side of treatment had been marked by my initials. The patient underwent general anesthetic and was placed supine on the lithotripter table. We then used fluoroscopy to identify the stone on the right side. Penis and testicles were prepped and draped in usual type fashion within the bladder with a 21 [place] rigid cystourethroscope advanced a Pollick catheter up the right ureter to assist with the identification of the stone fragment. We then positioned the patient under the lithotripter and we used triangulation technique to identify the location of the stone and then we made sure that the stone was engaged in the F2 focal point of F2 Donier lithoprior machine. Once the patient was positioned appropriately and the stone was identified and placed in the F2 focal point of the lithotripter machine we then proceeded with shockwave lithotripsy. In the beginning the shockwave was delivered at a rate of 90 shocks per minute, we monitor the EKG for any ectopy. The power was slowly increased to 5 kV and subsequently at the 7 kV. We then proceeded with the treatment we move the therapy had around during the treatment to make sure the stone stayed in the F2 focal point during the entire treatment and after 2000 shockwaves were delivered to the stone under fluoroscopic guidance the treatment was completed. The patient was given instructions to call the office to make an a follow-up appointment with an xray to evaluate the success of the treatment, pateint understands that its possible the stones may need another procedure.At this point the patient's anesthetic was reversed patient was extubated and taken back to the PACU in stable condition. Surgeon: charlotte
[2021-11-12] MEDS: Sodium Citrate/Citric Acid 30 ML UDC PO (15:23)
== END 2021-11-12 16:02 | disposition home or self-care (01) ==
LOC: SDC 12:10 → AC 12:12
PROVIDERS: PCP Family Medicine Geriatric Medicine; Visit Provider Urology
PROC: (CPT 50590; principal; 2021-11-12 14:05)
DX: N20.1 Calculus of ureter (principal); Z87.891 Personal history of nicotine dependence; I10 Essential (primary) hypertension; M19.90 Unspecified osteoarthritis, unspecified site; Z79.899 Other long term (current) drug therapy; G25.81 Restless legs syndrome; M41.9 Scoliosis, unspecified
CPT/HCPCS: 52005; 00910; 74018; J7120; C1769; J2405

== ENCOUNTER → 2022-03-18 | Outpatient (CLI) | payer OTHER, SELFPAY ==
--- NOTE | 2022-03-18 06:30 | MRI_ITS ---
STUDY: MRI LUMBAR SPINE WITHOUT CONTRAST REASON FOR EXAM: Male, 61 years old. pain into L leg, h/o scoliosis w/rods TECHNIQUE: Standardized fat and water weighted pulse sequences were obtained in the sagittal and axial planes. COMPARISON: MRI of the lumbar spine dated NOVEMBER 15, 2016. X-ray the lumbar spine dated March 04, 2022 FINDINGS: There is straightening of the normal lumbar lordosis. Severe levoscoliosis is present. Normal conus medullaris that terminates at the T12-L1 level. No visualized acute fracture or compression deformity. Right side spinal ramya spans the full length of the lumbar spine. Multitude of chronic postsurgical changes in the posterior elements including mature bone graft around the spinal ramya and multilevel surgical defects. T12-L1: Normal disc height, hydration and morphology. Normal bilateral facet joints. Normal central canal and bilateral lateral recesses. Normal bilateral intervertebral neural foramina. L1-2: Disc desiccation. Mild asymmetric disc space narrowing without posterior bulging or herniation of the disc. Mild MODIC endplate degenerative signal. Consolidated transverse bone graft material. Mild right facet joint hypertrophy. Normal central canal and bilateral lateral recesses. Normal bilateral intervertebral neural foramina. L2-3: Disc desiccation. Mild asymmetric disc space narrowing without posterior bulging or herniation of the disc. Mild MODIC endplate degenerative signal. Consolidated transverse bone graft material. Mild right facet joint hypertrophy. Normal central canal and bilateral lateral recesses. Normal bilateral intervertebral neural foramina. L3-4: Normal disc height, hydration and morphology. Mild to moderate facet joint hypertrophy, right greater than left. Normal central canal and bilateral lateral recesses. Normal bilateral intervertebral neural foramina. L4-5: Mild to moderate asymmetric disc space narrowing with diffuse disc bulging. Moderate to significant MODIC endplate degenerative signal and changes. Severe central canal stenosis is present due to severe facet joint hypertrophy. Moderate right foraminal stenosis with nerve root compression. Mild left foraminal stenosis. Anterolisthesis of L4 and L5 of 3 mm. L5-S1: Mild to moderate asymmetric disc space narrowing most prominent on the left side due to scoliosis with a diffuse disc bulge. Moderate MODIC endplate degenerative signal. Moderate to severe central canal stenosis is present due to severe facet joint hypertrophy. Moderate left foraminal stenosis with nerve root compression. Mild right foraminal stenosis with posterior impingement. Normal visualized sacral ala. Normal visualized paraspinous soft tissue structures. MRI/Spine Lumbar (Routine) IMPRESSION: 1. Multilevel degenerative changes, as described above. 2. Moderate to severe central canal stenosis at L5-S1 3. Severe central canal stenosis at L4-L5 4. Moderate left foraminal stenosis with nerve root compression at L5-S1. 5. Moderate right foraminal stenosis with nerve root compression at L4-L5 Electronically Signed: Aleksandr Buchanan MD at 11:26 EDT ,
== END | disposition home or self-care (01) ==
LOC: MRI 06:30
PROVIDERS: PCP Family Medicine Geriatric Medicine; Referring Provider Orthopaedic Surgery; Visit Provider Orthopaedic Surgery
DX: M54.50 Low back pain, unspecified (principal)
CPT/HCPCS: 72148

== ENCOUNTER 2022-06-27 05:39 | Day surgery (SDC) | payer OTHER, SELFPAY ==
[2022-06-27 06:08] VITALS: BP 153/79; PULSE 90; RESP 16; TEMP 37.2; O2SAT 97; BMI 27.6
[2022-06-27] MEDS: Lactated Ringers 1,000 ML 15 ML IV (06:16)
--- NOTE | 2022-06-27 06:57 | PCM.HP.STD ---
[facility] - General General Date of Admission: 06/27/22 Date of Service: 06/27/22 Chief Complaint: Screening colonoscopy HPI Narrative HARJIT CALVILLO, is a 62 M who presents today for screening colonoscopy. He has a past medical history of kidney stones and lumbar sacral radiculopathy along with sciatica. He is not having any problems with his back at this time. Does not have any nausea. He denied any chest pain or shortness of breath. He comes today for screening colonoscopy. He is having no changes in his bowels. He denies any bleeding per rectum. There is no family history of GI malignancy. [facility] Medical History (Updated 06/22/22 @ 11:58 by Ruth Lewis) Acute otitis media, left Alcohol use Arthritis Back pain Cancer CPAP (continuous positive airway pressure) dependence Former smoker Heartburn Hematoma History of edema History of epidural anesthesia History of stress test Hypertension Leg cramps Restless legs Scoliosis deformity of spine Wears glasses Home Medications Cetirizine Hcl [Zyrtec] 10 mg PO DAILY 01/02/15 [History Last Taken Unknown] lisinopril 10 mg tablet 20 mg PO DAILY 01/02/15 [History Last Taken 11/12/21] amlodipine 10 mg tablet 5 mg PO QHS 12/08/20 [History Last Taken Unknown] melatonin 5 mg tablet 10 mg PO QHS PRN Sleep 12/08/20 [History Last Taken Unknown] multivitamin with minerals 1 tab PO DAILY 12/08/20 [History Last Taken Unknown] gabapentin 300 mg capsule 300 mg PO 4X/DAY 11/01/21 [History Last Taken 11/12/21] tizanidine 4 mg capsule (Zanaflex) 4 mg PO BID 11/01/21 [History Last Taken Unknown] tramadol 50 mg tablet 50 mg PO TID 11/01/21 [History Last Taken 11/12/21] docusate sodium 50 mg capsule 50 mg PO DAILY 03/29/22 [History Last Taken Unknown] ascorbic acid (vitamin C) 500 mg tablet (Vitamin C) 500 mg PO DAILY 06/22/22 [History Last Taken Unknown] zinc 50 mg tablet 50 mg PO DAILY 06/22/22 [History Last Taken Unknown] Allergy/AdvReac Type Severity Reaction Status Date / Time orphenadrine citrate Allergy Severe Hives, Verified 06/27/22 06:09 [From Norflex] restricted airway tamsulosin [From Flomax] AdvReac Urinary Verified 06/27/22 06:09 retention Family History Mother Heart disease Diabetes type 2, uncontrolled S/P CABG x 4 Glaucoma Father Stage 4 malignant neoplasm of lung Surgical History (Updated 06/22/22 @ 11:58 by Ruth Lewis) History of colonoscopy History of lithotripsy History of spinal fusion for scoliosis Hx of cholecystectomy Hx of cystoscopy Hx of excision of mass Hx of toe surgery Hx of toe surgery Social History household members: spouse Smoking Status: Former smoker alcohol intake: never ROS Review of Systems ROS Unobtainable: other Constitutional Constitutional: Denies fatigue, fever(s), poor appetite, weight gain or weight loss ENT HEENT: Denies mouth lesions Cardiovascular Cardiovascular: Denies abdominal bloating, abdominal edema or abdominal pain Respiratory/Chest Respiratory/Chest: Denies change in mental status, change in phlegm color, chest congestion or chest tightness Gastrointestinal Gastrointestinal: Denies belching, bloating, change in bowel habits, change in stool character, chewing difficulty, coffee ground emesis, constipation, cramping, diarrhea, dyspepsia, dysphagia, early satiety, excessive flatus, fecal incontinence, heartburn, hematemesis, hematochezia, hemorrhoids, loose stools, melena, nausea, odynophagia, rectal bleeding, tenesmus, vomiting or weight changes Genitourinary Genitourinary: Denies abdominal discomfort, burning urination or itching Musculoskeletal Musculoskeletal: Reports as per HPI; Denies muscle weakness or myalgias Integumentary Integumentary: Denies jaundice Neurologic Neurologic: Denies lack of coordination or weakness Psychiatric Psychiatric: Denies confusion, depression, memory loss, mood swings, paranoia or suicidal ideation Endocrine Endocrinology: Denies systems reviewed and no addt'l complaints, except as documented Hematologic/Lymphatic Hematologic/Lymphatic: Denies anemia, easy bleeding, easy bruising or lymphadenopathy Allergic/Immunologic Allergic/Immunologic: Denies systems reviewed and no addt'l complaints, except as documented Vital Signs Vital Signs Vital Signs: 06/27/22 06:08 06/27/22 06:08 Temperature 99.0 F Temperature Source Temporal Pulse Rate 90 Respiratory Rate 16 Respiratory Pattern Normal Blood Pressure 153/79 H Blood Pressure Mean 103 Blood Pressure Source Monitor Blood Pressure Position Semi-Fowlers Blood Pressure Location Left Arm Pulse Ox 97 Oxygen Delivery Method Room Air Weight Weight: 192 lb 14.472 oz Body Mass Index (BMI) 27.6 Physical Exam Const alert General Appearance: cooperative Orientation / Consciousness: oriented to person HEENT hearing grossly normal bilaterally Head and Scalp: normal to inspection Face and Sinus: face symmetric Nose: external nose normal Mouth: oral and palatal mucosa normal Eyes conjunctivae normal General Eye: normal appearance of both eyes Neck full ROM General: normal visual inspection Lymph Lymphatic: no lymphadenopathy noted Chest inspection of chest normal and palpation of chest normal Chest: symmetrical chest wall rise Resp normal respiratory effort Effort and Inspection: able to speak in complete sentences Cardio regular rate GI non-distended Percussion: normal to percussion Rectal Exam: deferred Neuro Speech: speech normal Gait (Neuro): normal gait Assessment & Plan Assessment/Plan (1) Encounter for screening for malignant neoplasm of colon: PLAN: He will undergo screening colonoscopy. He was explained alternatives, risk, benefits including not withstanding bleeding, infection, sepsis, perforation, need for emergent surgery . He will have an ASA of 1.
[2022-06-27 07:26] VITALS: BP 121/62; BP 153/79; PULSE 84; RESP 14; TEMP 37.3; O2SAT 97
--- NOTE | 2022-06-27 07:29 | OP.CCLET_ITS ---
06/27/2022 Roney Das Re : Colonoscopy procedure for Alvin Charles Dear Pippa This procedure was performed on Monday, June 27, 2022. My impressions and recommendations are as follows: Impressions : - Non-bleeding internal hemorrhoids. - Diverticulosis in the sigmoid colon, in the ascending colon and in the cecum. - The examination was otherwise normal on direct and retroflexion views. - No specimens collected. Recommendations : - Discharge patient to home. - Resume previous diet. - Continue present medications. - Repeat colonoscopy in 10 years for screening purposes. My findings are described in the full procedure note, which is enclosed. If I can be of further assistance, please feel free to contact me at . Sincerely, Charles Pineda, 06/27/2022 7:28:46 AM This report has been signed electronically.
--- NOTE | 2022-06-27 07:29 | OP.COLON_ITS ---
Patient Name: Alvin Charles Procedure Date: 06/27/2022 7:00 AM Date of : 1960 Age: 62 Procedure: Colonoscopy Indications: Screening for colorectal malignant neoplasm Providers: Charles Pineda DO Medicines: Monitored Anesthesia Care Patient Profile: This is a 62 year old male. Refer to note in patient chart for documentation of history and physical. Last Colonoscopy: 10 years ago. Complications: No immediate complications. Procedure: Pre-Anesthesia Assessment: - Prior to the procedure, a History and Physical was performed, and patient medications and allergies were reviewed. The risks and benefits of the procedure and the sedation options and risks were discussed with the patient. All questions were answered and informed consent was obtained. Patient identification and proposed procedure were verified by the physician in the pre-procedure area. Mental Status Examination: alert and oriented. Airway Examination: normal oropharyngeal airway and neck mobility. Respiratory Examination: clear to auscultation. CV Examination: normal. Prophylactic Antibiotics: The patient does not require prophylactic antibiotics. Prior Anticoagulants: The patient has taken no previous anticoagulant or antiplatelet agents. After reviewing the risks and benefits, the patient was deemed in satisfactory condition to undergo the procedure. The anesthesia plan was to use monitored anesthesia care (MAC). Immediately prior to administration of medications, the patient was re-assessed for adequacy to receive sedatives. The heart rate, respiratory rate, oxygen saturations, blood pressure, adequacy of pulmonary ventilation, and response to care were monitored throughout the procedure. The physical status of the patient was re-assessed after the procedure. After I obtained informed consent, the scope was passed under direct vision. Throughout the procedure, the patient's blood pressure, pulse, and oxygen saturations were monitored continuously. The colonoscope was introduced through the anus and advanced to the cecum, identified by appendiceal orifice and ileocecal valve. The colonoscopy was performed without difficulty. The patient tolerated the procedure well. The quality of the bowel preparation was adequate. Scope In: 7:06:14 AM Scope Withdrawal Time 0 hours 11 minutes 35 seconds Scope Out: 7:22:27 AM Total Procedure Duration Time 0 hours 16 minutes 13 seconds Findings: The perianal and digital rectal examinations were normal. Non-bleeding internal hemorrhoids were found during retroflexion. The hemorrhoids were Grade II (internal hemorrhoids that prolapse but reduce spontaneously). A few small-mouthed diverticula were found in the sigmoid colon, ascending colon and cecum. The exam was otherwise without abnormality on direct and retroflexion views. Impression: - Non-bleeding internal hemorrhoids. - Diverticulosis in the sigmoid colon, in the ascending colon and in the cecum. - The examination was otherwise normal on direct and retroflexion views. - No specimens collected. Recommendation: - Discharge patient to home. - Resume previous diet. - Continue present medications. - Repeat colonoscopy in 10 years for screening purposes. Procedure Code(s): --- Professional --- G0121, Colorectal cancer screening; colonoscopy on individual not meeting criteria for high risk CPT copyright 2017 [employer]. All rights reserved. The codes documented in this report are preliminary and upon remote coders review may be revised to meet current compliance requirements. Charles Pineda DO 06/27/2022 7:28:46 AM This report has been signed electronically. Number of Addenda: 0 Note Initiated On: 06/27/2022 7:00 AM
[2022-06-27 07:30] VITALS: BP 120/67; BP 153/79; PULSE 88; RESP 14; O2SAT 99
[2022-06-27 07:35] VITALS: BP 110/62; BP 153/79; PULSE 83; RESP 16; O2SAT 98
[2022-06-27 07:41] VITALS: BP 125/67; BP 153/79; PULSE 82; RESP 16; TEMP 38.3; O2SAT 98
[2022-06-27 08:02] VITALS: BP 153/79
== END 2022-06-27 08:07 | disposition home or self-care (01) ==
LOC: EN 05:39 → AC 05:41
PROVIDERS: PCP Family Medicine Geriatric Medicine; Referring Provider Family Medicine Geriatric Medicine; Visit Provider Internal Medicine Gastroenterology
PROC: 0DJD8ZZ Inspection of Lower Intestinal Tract, Via Natural or Artificial Opening Endoscopic (ICD-10-PCS; CPT 45378; principal; 2022-06-27 06:55)
DX: Z12.11 Encounter for screening for malignant neoplasm of colon (principal); K57.30 Diverticulosis of large intestine without perforation or abscess without bleeding; K64.1 Second degree hemorrhoids; I10 Essential (primary) hypertension; Z87.891 Personal history of nicotine dependence
CPT/HCPCS: 45378; J7120; J2405

== ENCOUNTER 2022-11-21 15:19 | Emergency (ER) | payer OTHER, SELFPAY ==
[2022-11-21 15:20] VITALS: BP 143/88; PULSE 65; RESP 14; TEMP 36.1; O2SAT 98; BMI 28.4
--- NOTE | 2022-11-21 15:33 | EX.ED.UPPERE ---
HPI History of Present Illness Chief Complaint: Upper Extremity Injury Informant: patient Narrative Narrative: Patient fell and hurt his left shoulder. Patient was walking on a slope. Dog pulled on him. He fell into the slope onto his left shoulder. He really did not try to brace himself because of the distance involved. He states it did not hurt that much at first but within 2 days he had bruising down in his arm. He still has discomfort on the left shoulder and it is worsened if he lays on that side. He is able to move it but it is somewhat sore. No numbness tingling or weakness. No other areas of bruising. He is not on any blood thinners. No trouble breathing. No numbness or tingling. He is right-hand dominant. [facility] Medical History Acute otitis media, left Alcohol use Arthritis Back pain Cancer CPAP (continuous positive airway pressure) dependence Former smoker Heartburn Hematoma History of edema History of epidural anesthesia History of stress test Hypertension Leg cramps Restless legs Scoliosis deformity of spine Wears glasses Home Medications lisinopril 10 mg tablet 20 mg PO DAILY 01/02/15 [History Last Taken 11/12/21] amlodipine 10 mg tablet 5 mg PO QHS 12/08/20 [History Last Taken Unknown] multivitamin with minerals 1 tab PO DAILY 12/08/20 [History Last Taken Unknown] gabapentin 300 mg capsule 300 mg PO 4X/DAY 11/01/21 [History Last Taken 11/12/21] tizanidine 4 mg capsule (Zanaflex) 4 mg PO BID 11/01/21 [History Last Taken Unknown] tramadol 50 mg tablet 50 mg PO TID 11/01/21 [History Last Taken 11/12/21] docusate sodium 50 mg capsule 50 mg PO DAILY 03/29/22 [History Last Taken Unknown] Allergy/AdvReac Type Severity Reaction Status Date / Time orphenadrine citrate Allergy Severe Hives, Verified 11/21/22 15:20 [From Norflex] restricted airway tamsulosin [From Flomax] AdvReac Urinary Verified 11/21/22 15:20 retention Family History Mother Heart disease Diabetes type 2, uncontrolled S/P CABG x 4 Glaucoma Father Stage 4 malignant neoplasm of lung Surgical History History of colonoscopy History of lithotripsy History of spinal fusion for scoliosis Hx of cholecystectomy Hx of cystoscopy Hx of excision of mass Hx of toe surgery Hx of toe surgery Social History household members: spouse Smoking Status: Former smoker alcohol intake: never ROS ROS ED Constitutional Constitutional ED: Denies chills or fever(s) ENT ENT ED: Denies rhinorrhea or sore throat Cardiovascular Cardiovascular: Denies chest pain, palpitations or racing heartbeat Respiratory/Chest Respiratory/Chest: Denies cough or dyspnea Gastrointestinal Gastrointestinal: Denies vomiting Musculoskeletal Musculoskeletal: Reports other Details: See history of present illness ; Denies neck pain Integumentary Reports other Details: Bruising but no laceration or abrasion. ; Denies Abrasions Neurologic Neurologic: Denies headache(s), paresthesias or weakness Hematologic/Lymphatic Hematologic/Lymphatic: Denies easy bleeding or easy bruising EXAM Physical Exam Narrative Exam Narrative: Patient awake alert no acute distress sitting comfortably on bed. HEENT shows no sign of trauma. Neck history range of motion no tenderness no bruising up on the neck. Lungs are clear bilaterally. No chest wall tenderness. No bruising on the chest wall. No pain with a deep breath. No asymmetry of breath sounds or subcutaneous air. Heart is regular. No murmur gallop or rub. Abdomen soft nontender Extremities do show some mild tenderness at the supraspinatus area on the scapula. He has some mild nonfocal tenderness around the shoulder joint. But a little bit below this mostly on the medial aspect he has some bruising that has tracked down due to gravity. The bruising actually goes down to and crosses the elbow slightly on the medial aspect. But those areas are not at all tender. The discomfort he has is really up in the shoulder itself. 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 Neurologically has normal strength sensation. Const Vital Signs: 11/21/22 15:20 Temperature 97 F L Temperature Source Temporal Pulse Rate 65 Respiratory Rate 14 Blood Pressure 143/88 H Blood Pressure Mean 106 Pulse Ox 98 Oxygen Delivery Method Room Air MDM MDM MDM Narrative Medical decision making narrative: My independent interpretation of 4 images of the left shoulder show prior spinal surgery but no sign of acute fracture or dislocation. Final reading urology is similar. We discussed the findings with the patient. We discussed range of motion and follow-up. Discharge Plan Triage Chief Complaint: Upper Extremity Injury ED Provider: Romel Graf Dx/Rx/DC Orders Clinical Impression: Contusion of left shoulder, Fall from slipping Prescriptions: No Action docusate sodium 50 mg capsule 50 mg PO DAILY lisinopril 10 MG tablet 20 mg PO DAILY tramadol 50 mg tablet 50 mg PO TID gabapentin 300 mg capsule 300 mg PO 4X/DAY tizanidine [Zanaflex] 4 mg capsule 4 mg PO BID amlodipine 10 mg Tablet 5 mg PO QHS multivitamin with minerals Tablet 1 tab PO DAILY Primary Care Provider: Roney Das Referrals: Roney Das MD [Primary Care Provider] - 1 Week if not improving Activity Restrictions/Additional Instructions: Range of motion activity as discussed. Ice, rest can also add heat. Disposition Disposition: Home, Self Care
--- NOTE | 2022-11-21 16:10 | RAD_ITS ---
EXAM: XR LEFT SHOULDER COMPLETE, 2 OR MORE VIEWS CLINICAL INDICATION: Trauma TECHNIQUE: Two or more views of the left shoulder. COMPARISON: No relevant prior studies available. FINDINGS: BONES/JOINTS: Unremarkable. No acute fracture. No subluxation. Normal alignment. Preservation of the joint space. No sclerotic or destructive changes observed. SOFT TISSUES: Unremarkable. No soft tissue swelling or gas. No radiopaque foreign body. RAD/Shoulder min 2 Views IMPRESSION: Negative left shoulder x-rays. Electronically Signed: Alonso Santos MD at 16:32 EDT ,
== END 2022-11-21 16:56 | disposition home or self-care (01) ==
LOC: ED 15:47
PROVIDERS: Emergency Provider Emergency Medicine; PCP Family Medicine Geriatric Medicine; Visit Provider Emergency Medicine
DX: S40.012A Contusion of left shoulder, initial encounter (principal); I10 Essential (primary) hypertension; W10.2XXA Fall (on)(from) incline, initial encounter; Y93.K1 Activity, walking an animal; Z87.891 Personal history of nicotine dependence
CPT/HCPCS: 73030; 99282

== ENCOUNTER → 2022-12-07 | Outpatient (CLI) | payer OTHER, SELFPAY ==
[2022-12-07 16:29] LABS: Amphetamine Urine VISTA NEGATIVE (<1000 ng/mL); Barbiturate Urine VISTA NEGATIVE (< 200 ng/mL); Benzodiazepine Urine VISTA NEGATIVE (< 200 ng/mL); Cocaine Urine VISTA NEGATIVE (< 300 ng/mL); Ecstacy Urine VISTA NEGATIVE (< 500 ng/mL); Methadone Urine VISTA NEGATIVE (< 300 ng/mL); PCP Urine VISTA NEGATIVE (< 25 ng/mL); THC Urine VISTA NEGATIVE (< 50 ng/mL)
[2022-12-07 16:40] LABS: Vista UDS pH Range 6
== END | disposition home or self-care (01) ==
PROVIDERS: PCP Family Medicine Geriatric Medicine; Referring Provider Anesthesiology Pain Medicine; Visit Provider Anesthesiology Pain Medicine
DX: F11.20 Opioid dependence, uncomplicated (principal)
CPT/HCPCS: 80307

== ENCOUNTER → 2023-02-06 | Outpatient (CLI) | payer OTHER, SELFPAY ==
[2023-02-06 11:57] LABS: Hemoglobin A1c 5.3 % (3.8-5.6)
== END | disposition home or self-care (01) ==
LOC: LAB 09:04
PROVIDERS: PCP Family Medicine Geriatric Medicine
DX: E74.39 Other disorders of intestinal carbohydrate absorption (principal)
CPT/HCPCS: 36415; 83036

== ENCOUNTER → 2023-02-15 | Outpatient (CLI) | payer OTHER, SELFPAY ==
[2023-02-15 07:59] LABS: PSA,Total - Annual Screen 2.05 ng/mL (0.00-4.00)
== END | disposition home or self-care (01) ==
LOC: LAB 07:03
PROVIDERS: PCP Family Medicine Geriatric Medicine
DX: Z12.5 Encounter for screening for malignant neoplasm of prostate (principal)
CPT/HCPCS: 36415; 84153; G0103

== ENCOUNTER 2023-03-22 15:30 | Outpatient (RCR) | payer OTHER, SELFPAY ==
--- NOTE | 2023-02-17 14:08 | HP.PTEVAL ---
Patient's Visit Information Visit Information Visit Information: HARJIT CALVILLO is a 62 year old M referred to Physical Therapy by [facility] with a diagnosis of LEFT SHOULDER ACUTE PAIN. Date of Evaluation: 02/17/23 Physical Therapist: Harjit Ibrahim, PT, Cert MDT, OCS Visit Plan Frequency: 2x /Week Duration: 4 Weeks Plan: PT INTERVTIONS MODLATIES FOR PAIN ,ROM,STRENGTHENING RTC/SCAPUALR STRENGTHENING AMD POSTURAL EX'S Subjective Subjective: This 62 y/o male presents to physical therapy with left shoulder pain. Patient injury shoulder falling in shoulder December with immediate pain and 2 days later ecchymosis and shoulder and upper arm. Patient ER at [facility] x-rays - for fracture. Patient seen Monday recommended PT. Patient pain located lateral deltoid described as ache. Patient pain aggravating factors lifting OH ,pressure activities above 90 degrees and job demands. Alleviating factors rest. Patient takes medication for back pain. Patient affects sleeping. End of day is worse. Denies paresthesia/tingling. Patient goals less pain maybe MRI and get stronger. Patient pain affects QOL and function and unable to lift anything OH. SOCIAL: VOCATION: [employer] [facility] cardiac Rehab Pain Left Shoulder: Pain Intensity (Out of 10): 9 Pain Intensity Range: 10 Objective Objective: POSTURE: rounded shoulders head forward PALAPTION: tender AC joint NEURO: denies paresthesia/tingling , reflexes C5-6-7 2/3 AROM: flexion 150 degrees ,abduction 150 degrees ,IR pelvis pain , ER 80 degrees pain POSTERIOR DELTOID: mod loss pain MMT: infraspinatus 17.9 pain ,subscapularis 16.7 pain , supraspinatus 12.8 , deltoid 9.5 CAPSULAR G-H: mild tight Special Tests L Shoulder External Rotation Lag Test - RC Tear: Negative L Shoulder Supine Impingement Test - RC Tear: Positive L Shoulder Lift Off Test - Subscapular Tear: Negative L Shoulder Drop Sign - IS Test: Negative L Shoulder Empty Can - SS: Positive L Shoulder Belly Press - SupScap: Positive L Shoulder Neer - Impingement: Positive L Shoulder Aguiar Markel - Impingement: Positive L Shoulder Speeds Test - Labrum/Biceps: Positive L Shoulder Sulcus Sign - Inferior Laxity: Negative Balance/Special Test Scores Quick DASH Score: 50.0000 Goals Goal 1:: I with HEP for shoulder RTC Goal Time Frame: 4-6 Weeks Goal 2:: Patient to demonstrate 60% improvement with decrease pain and improve function Goal Time Frame: 4-6 Weeks Goal 3:: Patient to improve peak force RTC and scapular by 10# force to improve ADL and job bdemands Goal Time Frame: 4-6 Weeks Goal 4:: Patient to improve quick dash by 5 points or > to improve QOL and function Goal Time Frame: 4-6 Weeks Goal 5:: Patient to improve lifting OH and activities above 90 degrees with job and housework tasks Goal Time Frame: 4-6 Weeks Rehabilitation Potential Physical Therapy Diagnosis: This patient has left shoulder pain with possible RTC injury and/or labral with pain ,decrease ROM weakness RTC deltoid impairs ADL and housework tasks above 90 and lifting impairs job demands thus benefit from skilled PT Rehabilitation Potential: Good Anticipated Interventions Patient/Client Instruction: Educate patient on: Condition and Plan of Care For the Purpose of:: To decrease pain, To decrease swelling/inflammation, To increase ROM, To improve muscle performance and motor function, To improve ability to perform ADL's, To increase tolerance to activity/condition/position, To improve ability of physical actions for home/community/work/leisure, To improve health of tissue, To decrease soft tissue restriction, To increase flexibility/ROM and To prevent re-injury Therapeutic Exercise to Include: Strength training, Postural training, Flexibilty training, Active ROM and Scapular Strength/Stabilization Comment: RTC For the Purpose of:: To decrease pain, To increase ROM, To improve muscle performance and motor function, To improve ability to perform ADL's, To increase tolerance to activity/condition/position, To improve ability of physical actions for home/community/work/leisure, To improve health of tissue, To increase flexibility/ROM, To improve endurance and To prevent re-injury TENS: Yes IF ES: Yes Cryotherapy (ice pack, ice massage): Yes Thermo therapy (hot pack): Yes Ultrasound (thermal/non thermal): Yes For the Purpose of:: To decrease pain, To increase ROM, To improve muscle performance and motor function, To increase tolerance to activity/condition/position, To improve ability of physical actions for home/community/work/leisure, To improve health of tissue, To decrease soft tissue restriction, To prevent re-injury and To improve tolerance to ADL's Text: Thank you for the opportunity to evaluate your patient. For Medicare and Medicare HMO plans, please review the plan of care and approve it. It will need to be FAXED BACK to us at [phone] for Medicare purposes. For Medicare only, by signing this I certify the plan of care. Please let me know if there are questions or concerns regarding this plan of care. Physician Signature: Date:
== END 2023-03-22 19:00 | disposition home or self-care (01) ==
LOC: PT 15:30
PROVIDERS: PCP Family Medicine Geriatric Medicine
DX: M25.512 Pain in left shoulder (principal)
CPT/HCPCS: 97110; 97162

== ENCOUNTER → 2023-05-04 | Outpatient (CLI) | payer OTHER, SELFPAY ==
--- NOTE | 2023-05-04 06:36 | MRI_ITS ---
STUDY: MRI LEFT SHOULDER REASON FOR EXAM: Male, 62 years old. Left shoulder pain since December 2022. TECHNIQUE: Standardized fat and water weighted pulse sequences were obtained in all 3 orthogonal planes. COMPARISON: Left shoulder radiographs dated 11/21/2022. FINDINGS: There is a high-grade partial thickness (if not full-thickness) tear of the anterior distal supraspinatus tendon, overall measuring 1.3 cm in length (coronal T2 series 5 images 8-11) and 0.8 cm in width (sagittal T2 series 6 images 16-18). Normal infraspinatus tendon. There is a full-thickness tear of the distal subscapularis tendon, measuring 2.0 cm in length. Normal teres minor tendon. Normal supraspinatus muscle. Normal infraspinatus muscle. Normal subscapularis muscle. Normal teres minor muscle. There is a moderate glenohumeral joint effusion. Normal humeral head and visualized proximal humerus. Normal labrum. Normal capsulo-ligamentous complex. There is medial dislocation of the long biceps tendon. There is hypertrophic acromioclavicular arthrosis, with inferior osteophyte formation, with minimal effacement of the supraspinatus myotendinous junction (coronal PD series 4 images 10-11). There is a Type II morphology (curved), with a neutral orientation. There is a small amount of subacromial-subdeltoid bursal fluid. Normal visualized coracohumeral and coracoacromial ligaments. Normal quadrilateral space. Normal axillary space. Normal deltoid muscle. Normal trapezius muscle. MRI/Upper Ext Joint Only(Routine) IMPRESSION: 1.3 x 0.8 cm high-grade partial thickness (if not full-thickness) tear of the anterior distal supraspinatus tendon. Full-thickness tear of the distal subscapularis tendon, measuring 2.0 cm in length. Hypertrophic acromioclavicular arthrosis, with inferior osteophyte formation, with minimal effacement of the supraspinatus myotendinous junction. Moderate glenohumeral joint effusion. Small amount of subacromial-subdeltoid bursal fluid. Medial dislocation of the long biceps tendon. Electronically Signed: Robles Tinoco MD at 9:41 EST ,
== END | disposition home or self-care (01) ==
LOC: MRI 06:31
PROVIDERS: PCP Family Medicine Geriatric Medicine; Referring Provider Anesthesiology; Visit Provider Anesthesiology
DX: S46.012A Strain of muscle(s) and tendon(s) of the rotator cuff of left shoulder, initial encounter (principal); M25.512 Pain in left shoulder; X58.XXXA Exposure to other specified factors, initial encounter
CPT/HCPCS: 73221

== ENCOUNTER 2023-06-14 10:43 | Day surgery (SDC) | payer OTHER, SELFPAY ==
--- NOTE | 2023-05-30 06:08 | EKG12_ITS ---
Test Reason : PRE-OP Blood Pressure : / mmHG Vent. Rate : 065 BPM Atrial Rate : 065 BPM P-R Int : 156 ms QRS Dur : 080 ms QT Int : 388 ms P-R-T Axes : 040 016 010 degrees QTc Int : 403 ms Normal sinus rhythm Normal ECG Confirmed by DIANNE ALBARADO, BRUCE ([id number]), story editor DYLAN LABOY ([id number]) on 06/05/2023 7:01:06 AM Referred By: Ramana Zamora Confirmed By:SRI DEAN MD
[2023-05-30 07:45] LABS: Hematocrit 46.5 % (40-54); Hemoglobin 15.5 g/dL (13.0-16.5); Mean Corp Hgb Conc 33.3 g/dL (32-36); Mean Corpuscular Hgb 29.1 pg (27.0-32.0); Mean Corpuscular Volume 87.4 fL (80-94); Mean Platelet Vol. 9.8 fl (6.2-12.0); Platelet Count 245 K/mm3 (150-450); RBC Distribution Width SD 41.3 fl (35.1-43.9); Red Blood Count 5.32 M/mm3 (4.6-6.2); White Blood Count 6.6 K/mm3 (4.4-11.0)
[2023-06-14] VITALS (7 sets, daily range): BP systolic 151–164; BP diastolic 93–98; PULSE 52–79; RESP 12–18; TEMP 36.1–36.6; O2SAT 96–98; BMI 28.7
[2023-06-14] MEDS: Lactated Ringers 1,000 ML 15 ML IV (11:12)
--- NOTE | 2023-06-14 12:12 | PCM.HP.STD ---
HPI - General HPI Narrative HARJIT CALVILLO, is a 62 M who presents for left shoulder arthroscopy, subacromial decompression, rotator cuff repair, biceps tenodesis. no changes to h and p. post op instructions, rab and narcotic counselling. marked the shoulder. ok to proceed. MR#: [id number] Acct: [id number] Name: HARJIT CALVILLO Rep #: [id number] : 1960 Provider: Dr. Ramana Zamora MD Age/Sex: 62/M Location[place] [facility] [place] Status: Signed Intake Vital Signs 11/21/2314:20 05/10/2308:08 Height 5 ft 10 in 5 ft 10 in Intake Visit Reasons: LEFT SHOULDER Chief Complaint: left shoulder Is patient in pain?: Yes (left shoulder) Pain scale (1-10): 10 Allergies orphenadrine citrate [From Norflex] Allergy (Severe, Verified 05/10/23 14:02) Hives, restricted airwaytamsulosin [From Flomax] Adverse Reaction (Verified 05/10/23 14:02) Urinary retention Medications lisinopril 10 mg tablet 20 mg PO DAILY 01/02/15 [History Confirmed 11/21/22] amlodipine 10 mg tablet 5 mg PO QHS 12/08/20 [History Confirmed 11/21/22] multivitamin with minerals 1 tab PO DAILY 12/08/20 [History Confirmed 11/21/22] gabapentin 300 mg capsule 300 mg PO 4X/DAY 11/01/21 [History Confirmed 11/21/22] tizanidine 4 mg capsule (Zanaflex) 4 mg PO BID 11/01/21 [History Confirmed 11/21/22] tramadol 50 mg tablet 50 mg PO TID 11/01/21 [History Confirmed 11/21/22] docusate sodium 50 mg capsule 50 mg PO DAILY 03/29/22 [History Confirmed 11/21/22] saw palmetto 160 mg capsule 160 mg PO BID 05/10/23 [History Confirmed 05/10/23] [facility] Medical History Acute otitis media, left Alcohol use Arthritis Back pain Cancer CPAP (continuous positive airway pressure) dependence Former smoker Heartburn Hematoma History of edema History of epidural anesthesia History of stress test Hypertension Left rotator cuff tear Left shoulder pain Leg cramps Partial tear of left subscapularis tendon Restless legs Scoliosis deformity of spine Wears glasses Surgical History History of colonoscopy History of lithotripsy History of spinal fusion for scoliosis Hx of cholecystectomy Hx of cystoscopy Hx of excision of mass Hx of toe surgery Hx of toe surgery Family History Mother Heart disease Diabetes type 2, uncontrolled S/P CABG x 4 GlaucomaFather Stage 4 malignant neoplasm of lung Social History household members: spouse Smoking Status: Former smoker alcohol intake: never HPI LEFT SHOULDER Details: This documentation accurately reflects the service provided and the decisions made by me, Dr. Ramana Zamora MD 05/10/23 [id number]. Part of today?s visit was documented by [ ], acting as scribe. HARJIT CALVILLO is a 62 year old M here today for L shoulder eval ... fell December 20, onto the left shoulder, had bruising, 5 months ago, did some PT [facility], but not helping. was thinking about a US guided steroid injection. ordered an MRI. taking nsaids and not helping, lateral going down the arm, does wake him up at night. 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 03/28 pain. Ortho Exam General General: Yes no acute distress Neurologic: Yes alert and Yes oriented x3 Psychologic: Yes reasonable and appropriate Left Shoulder Skin/Wound: Yes CDI, No ecchymosis, No erythema and No swelling Testing: Yes Hawkin's, Yes Neer's, Yes Speed's, Yes TTP Biceps, No TTP AC Joint, No Drop Arm, Yes AROM-Forward Elevation 0-180, Yes AROM-External Rotation at side 0-60, Yes empty can, No Luce, No cross arm, No scapular winging and No belly press normal Internal Rotation: Hip SHOULDER: normal motor and sens to axillary N, MRU and AIN/PIN. Hand warm well perfused normal radial pulse strength FE 4/5, ER 5/5 Supplemental Info [facility] [address] [place] [address] Shoulder min 2 Views MR#: [id number] Acct: [id number] Name: HARJIT CALVILLO Rep #: [id number] : 1960 M 62 From: Alonso Santos MD PCP: Dr. Roney Das MD Status: REG ER Study: Shoulder min 2 Views Date of Exam: 11/21/22 Exam# [id number] Ordering Dr: Romel Graf MD EXAM: XR LEFT SHOULDER COMPLETE, 2 OR MORE VIEWS CLINICAL INDICATION: Trauma TECHNIQUE: Two or more views of the left shoulder. COMPARISON: No relevant prior studies available. FINDINGS: BONES/JOINTS: Unremarkable. No acute fracture. No subluxation. Normal alignment. Preservation of the joint space. No sclerotic or destructive changes observed. SOFT TISSUES: Unremarkable. No soft tissue swelling or gas. No radiopaque foreign body. RAD/Shoulder min 2 Views IMPRESSION: Negative left shoulder x-rays. Electronically Signed: Alonso Santos MD at 16:32 EDT , [facility] [address] [place] [address] Upper Ext Joint Only(Routine) MR#: [id number] Acct: [id number] Name: HARJIT CALVILLO Rep #: [id number] : 1960 M 62 From: Robles Tinoco MD PCP: Dr. Roney Das MD Status: REG CLI Study: Upper Ext Joint Only(Routine) Date of Exam: 05/04/23 Exam# [id number] Ordering Dr: Brandyn Christie MD STUDY: MRI LEFT SHOULDER REASON FOR EXAM: Male, 62 years old. Left shoulder pain since December 2022. TECHNIQUE: Standardized fat and water weighted pulse sequences were obtained in all 3 orthogonal planes. COMPARISON: Left shoulder radiographs dated 11/21/2022. FINDINGS: There is a high-grade partial thickness (if not full-thickness) tear of the anterior distal supraspinatus tendon, overall measuring 1.3 cm in length (coronal T2 series 5 images 8-11) and 0.8 cm in width (sagittal T2 series 6 images 16-18). Normal infraspinatus tendon. There is a full-thickness tear of the distal subscapularis tendon, measuring 2.0 cm in length. Normal teres minor tendon. Normal supraspinatus muscle. Normal infraspinatus muscle. Normal subscapularis muscle. Normal teres minor muscle. There is a moderate glenohumeral joint effusion. Normal humeral head and visualized proximal humerus. Normal labrum. Normal capsulo-ligamentous complex. There is medial dislocation of the long biceps tendon. There is hypertrophic acromioclavicular arthrosis, with inferior osteophyte formation, with minimal effacement of the supraspinatus myotendinous junction (coronal PD series 4 images 10-11). There is a Type II morphology (curved), with a neutral orientation. There is a small amount of subacromial-subdeltoid bursal fluid. Normal visualized coracohumeral and coracoacromial ligaments. Normal quadrilateral space. Normal axillary space. Normal deltoid muscle. Normal trapezius muscle. MRI/Upper Ext Joint Only(Routine) IMPRESSION: 1.3 x 0.8 cm high-grade partial thickness (if not full-thickness) tear of the anterior distal supraspinatus tendon. Full-thickness tear of the distal subscapularis tendon, measuring 2.0 cm in length. Hypertrophic acromioclavicular arthrosis, with inferior osteophyte formation, with minimal effacement of the supraspinatus myotendinous junction. Moderate glenohumeral joint effusion. Small amount of subacromial-subdeltoid bursal fluid. Medial dislocation of the long biceps tendon. Electronically Signed: Robles Tinoco MD at 9:41 EST , Coding Level of Care Code Off vis,new,level 3 Diagnoses Left shoulder pain M25.512 Left rotator cuff tear M75.102 Partial tear of left subscapularis tendon S46.812A Assessment and Plan Assessment and Plan (1) Left shoulder pain: Status: Acute Plan: 62 yr M with L shoulder pain, supraspinatus tear, subscapularis partial tear with medial subluxation of biceps. Failed PT and conservative management over 5 months. Patient counseled on diagnosis prognosis different treatment options with this. Typically these tears do not heal they can get worse over time. The different options in terms of nonoperative treatment to be rest ice anti-inflammatories doing nothing activity modifications continue physical therapy or subacromial cortisone injection. Surgery would be in the form of left shoulder arthroscopy, subacromial decompression, rotator cuff repair, biceps tenodesis. I would likely fix both the supraspinatus as well as subscapularis tears and perform the biceps tenodesis due to the medial subluxation and instability of the biceps. I explained this as well as recovery to the patient 2 to 3 weeks in a sling after 3 to 6 months before going back to heavy lifting and therapy after surgery. Described the risks and benefits pros and cons of each method of treatment the patient would like to go ahead with surgery. Signed the consent form for that as well as possible need for blood products. He understands no further questions or concerns. [facility] Medical History (Updated 05/29/23 @ 13:15 by Marivel Mosqueda) Alcohol use Arthritis Back pain Cancer CPAP (continuous positive airway pressure) dependence Former smoker Hematoma History of diverticulitis History of edema History of epidural anesthesia History of stress test Hypertension Left rotator cuff tear Left shoulder pain Leg cramps Neuropathy Partial tear of left subscapularis tendon PONV (postoperative nausea and vomiting) Restless legs Sciatic leg pain Scoliosis deformity of spine Wears glasses Home Medications lisinopril 10 mg tablet 20 mg PO DAILY 01/02/15 [History Last Taken 06/14/23] amlodipine 10 mg tablet 5 mg PO QHS 12/08/20 [History Last Taken 06/13/23] multivitamin with minerals 1 tab PO DAILY 12/08/20 [History Last Taken 06/13/23] gabapentin 300 mg capsule 300 mg PO 4X/DAY 11/01/21 [History Last Taken 06/13/23] tizanidine 4 mg capsule (Zanaflex) 4 mg PO BID 11/01/21 [History Last Taken 06/13/23] tramadol 50 mg tablet 50 mg PO TID 11/01/21 [History Last Taken 06/13/23] docusate sodium 50 mg capsule 50 mg PO DAILY 03/29/22 [History Last Taken 06/13/23] saw palmetto 160 mg capsule 160 mg PO BID 05/10/23 [History Last Taken 06/13/23] ascorbic acid (vitamin C) 500 mg tablet (C-500) 500 mg PO DAILY 05/29/23 [History Last Taken 06/13/23] cyanocobalamin (B12)-cobamamide 5,000 mcg-100 mcg sublingual lozenge (B12) 1 camilo sublingual DAILY 05/29/23 [History Last Taken 06/13/23] zinc 50 mg capsule 50 mg PO DAILY 05/29/23 [History Last Taken 06/13/23] Allergy/AdvReac Type Severity Reaction Status Date / Time orphenadrine citrate Allergy Severe Hives, Verified 06/14/23 11:05 [From Norflex] restricted airway tamsulosin [From Flomax] AdvReac Urinary Verified 06/14/23 11:05 retention Family History Mother Heart disease Diabetes type 2, uncontrolled S/P CABG x 4 Glaucoma Father Stage 4 malignant neoplasm of lung Surgical History History of colonoscopy History of lithotripsy History of spinal fusion for scoliosis Hx of cholecystectomy Hx of cystoscopy Hx of excision of mass Hx of toe surgery Hx of toe surgery Social History household members: spouse Smoking Status: Former smoker alcohol intake: never Vital Signs Vital Signs Vital Signs: 06/14/23 11:07 06/14/23 11:07 Temperature 97 F L Temperature Source Temporal Pulse Rate 52 L Respiratory Rate 16 Respiratory Pattern Normal Blood Pressure 164/96 H Blood Pressure Mean 118 Blood Pressure Source Monitor Blood Pressure Position Semi-Fowlers Blood Pressure Location Right Arm Pulse Ox 98 Oxygen Delivery Method Room Air Weight Weight: 200 lb 6.403 oz Body Mass Index (BMI) 28.7 Results Lab / Micro Data 05/30/23 06:16
[2023-06-14] MEDS: Cefazolin 2 GM in 0.9% Normal Saline (100mL Bag) 100 ML IV (12:55)
[2023-06-14] MEDS: Epinephrine (1 mg/ml) 1 MG/ML VIAL (13:30)
--- NOTE | 2023-06-14 15:17 | DCINST_ITS ---
Discharge Instructions Diet Discharge Diet: No restrictions Activity May shower in (days): 14 Lifting Restrictions: pendulums, hand wrist elbow rom 4x/day, no lifting over 1 pound Additional Activity Instructions:: can remove sling at rest, recommend to sleep in sling Dressing / Incision Call your doctor if your incision/area has: Continuous Slow Oozing, Sudden Increased Bleeding, Increased Pain/ Swelling, Increased Redness, Foul Smelling Discharge and Swelling at the incision site Remove Dressing in: 2 days Follow Up Care Please Follow Up With: Ramana Zamora MD When: 2 days or 2 weeks Test Results: Test results from this visit will be discussed in further detail at your follow- up appointment, if applicable. Discharge Plan Admission Attending Provider: Ramana Zamora Primary Care Provider: Roney Das Instructions Patient Instructions: After Shoulder Arthroscopy Discharge Orders/Prescriptions Prescriptions: New oxycodone-acetaminophen [Endocet] 5-325 mg tablet 1 tab PO Q4H MDD 6 PRN (Reason: pain) 5 Days Qty: 30 0RF No Action docusate sodium 50 mg capsule 50 mg PO DAILY saw palmetto 160 mg capsule 160 mg PO BID Rx Instructions: give with meal/snack lisinopril 10 MG tablet 20 mg PO DAILY tramadol 50 mg tablet 50 mg PO TID gabapentin 300 mg capsule 300 mg PO 4X/DAY tizanidine [Zanaflex] 4 mg capsule 4 mg PO BID Rx Instructions: 1 TAB IN A.M.; 2 TAB QHS B12 5,000-100 mcg lozenge 1 camilo sublingual DAILY ascorbic acid (vitamin C) [C-500] 500 mg tablet 500 mg PO DAILY zinc 50 mg capsule 50 mg PO DAILY amlodipine 10 mg Tablet 5 mg PO QHS multivitamin with minerals Tablet 1 tab PO DAILY Other Ambulatory Orders: 12 Lead EKG (Routine) Timeframe: [id number] Location: None Selected Ordered By: Dr. Adriano Michele Referrals / Follow Up: Roney Das MD [Primary Care Provider] - Ramana Zamora MD [Med Staff - Active Staff] - Disposition Disposition (needs filled in before D/C Order can be placed): Home, Self Care
--- NOTE | 2023-06-14 15:20 | PCM.OPRPT ---
Problems Associated Problem List Diagnoses (1) Left rotator cuff tear: (2) Partial tear of left subscapularis tendon: (3) Left shoulder pain: Report of Operation Date of Procedure: 06/14/23 Pre-Operative Diagnosis: Left shoulder impingement syndrome and rotator cuff tears Post-Operative Diagnosis: Same Surgery/Procedure Performed:: Shoulder arthroscopy subacromial decompression repair of supraspinatus tendon and subscapularis tendon and biceps tenodesis Surgeon: Ramana Zamora Type of Anesthesia: Block,Regional, General and Local Anesthesiologist: George Martinez Estimated Blood Loss (mL): 100 Description of Procedure: Patient brought to the operating room theater. Placed supine on the table. General anesthesia induced. 2 g IV Ancef administered prior to the start of the procedure. Patient transferred right left up lateral decubitus beanbag positioner axillary roll used. SCDs on the legs all bony prominences padded. Upper extremity prepped and draped in the usual sterile fashion with chlorhexidine-based prep solution allowing over 3 minutes drying time prior to draping. 10 pounds of inline traction with the arm in 35 degrees of abduction was used. Preoperative timeout performed to confirm the site patient and the surgery. Began by inserting the arthroscope into the intra-articular portion of the shoulder. Did a full diagnostic arthroscopy. Biceps tendon medial subluxed, moderate synovitis and hypertrophy tendinosis. Did a biceps tenotomy to plan for the tenodesis, debrided the stump. Labrum stable, minor fraying. Subscapularis had an elevated tear with positive comma sign. Debrided the rotator interval. Mobilized the tear. Used powerpick instrument and ablator to prepare the footprint. 2 arthrex fiberlinks suture inserted at upper border, then repair with self punching 4.75mm biocomposite swivelock anchor inserted at the footprint. Restored the normal appearance of the MGHL and Ssc. Infraspinatus appeared normal. There was an obvious full-thickness rotator cuff tear of the supraspinatus tendon. Cresecent shaped, retracted to joint line but mobile. The glenoid and humeral head cartilage appeared to have grade 1 changes both sides, normal axillary recess no loose bodies. . I then placed the scope in the subacromial space. I made accessory anterolateral and posterior lateral portals using cannulas 7x7mm as well as an anterior portal through the rotator interval just posterior to the biceps. Did a subacromial decompression for 5mm, to flat margins using a shruti. I again prepared the tuberosity using the Arthrex power pick instrument and I cleared away any remaining soft tissue. I placed 2 Arthrex all suture fiber tack knotless anchors with medial raciel sutures at the articular margin. I passed the fiber tapes as well as the medial row sutures achieving good purchase of the supraspinatus tendon. I then passed the repair stitch from 1 suture anchor to the passing loop suture on the other anchor tension these appropriately and did the same for other repair suture to create a horizontal mattress configuration with 2 sutures. I appropriately tensioned these down. I then cut the fiber tape suture at the swedge. I then created an X configuration with 1 suture limb from each anchor. I then inserted these into 1 Arthrex 4.75 mm bio composite swivel lock anchor anteriorly and posteriorly to create a 'box and X' configuration. Sutures cut short. This is appropriately fixated the supraspinatus tendon. I then turned my attention to performing the biceps tenodesis. I made a small 2 inch longitudinal incision centered at the upper proximal border of the humerus overlying the long head of the biceps tendon. Carried dissection down through skin and subcutaneous tissue to meticulous hemostasis. Fascia was incised in line with the skin incision. Identified the long head of the biceps deliver this through the incision. Using the loop suture with a Navid needle I did 5 throws and locked the suture distally. I cut the suture to create 2 suture limbs which are passed in the opposite fashion through the Arthrex biceps button. I then identified the mid aspect of the humerus of the groove just distal to the pectoralis major insertion. I drilled unicortical hole and irrigated the bone debris. I then passed the button through the tunnel of the button and delivered the biceps to the repair site. I then passed 1 suture limb back through the biceps and 5 interrupted half hitches to fixate this down and cut the suture short. Wound thoroughly irrigated. Case was terminated shoulder irrigated. Skin cleaned with wet dry dressing followed by closure of the portal sites with 3-0 Monocryl sutures and incision with 2-0 vicryl. 10cc 0.25% bupivicaine at the biceps incision. Steri-Strips followed by 4 x 4 gauze Adaptic ABD dressing and cloth tape as well as a sling for the upper extremity. Patient woken up from a general anesthetic transferred off the operating table and taken to postanesthetic care unit in stable condition. All sponge and numbers and counts were correct no complications. cpt 19208 and [address]118 Complications none Admit VTE Documentation VTE Present on Admission: No VTE Mechan Device Prophylaxis: SCD's VTE Pharm Prophylaxis ordered?: No Reason prophylaxis not ordered:: Treatment Not Indicated
[2023-06-14] MEDS: Oxycodone/Apap 5/325 Tablet PO (16:33)
== END 2023-06-14 17:21 | disposition home or self-care (01) ==
LOC: SDC 10:44 → AC 10:44
PROVIDERS: Anesthesiology; PCP Family Medicine Geriatric Medicine; Referring Provider Orthopaedic Surgery Sports Medicine; Visit Provider Orthopaedic Surgery Sports Medicine
PROC: (CPT 29805; principal; 2023-06-14 12:30)
DX: M75.102 Unspecified rotator cuff tear or rupture of left shoulder, not specified as traumatic (principal); S46.812A Strain of other muscles, fascia and tendons at shoulder and upper arm level, left arm, initial encounter; M75.42 Impingement syndrome of left shoulder; I10 Essential (primary) hypertension; Z87.891 Personal history of nicotine dependence; Z79.899 Other long term (current) drug therapy; Z79.891 Long term (current) use of opiate analgesic; X58.XXXA Exposure to other specified factors, initial encounter
CPT/HCPCS: 29827; 23430; 64415; 01630; 36415; 85027; 93005; C1713; J7120; J2405

== ENCOUNTER 2023-10-09 15:30 | Outpatient (RCR) | payer OTHER, SELFPAY ==
--- NOTE | 2023-06-30 14:42 | HP.PTEVAL_ITS ---
Patient's Visit Information Visit Information Visit Information: HARJIT CALVILLO is a 63 year old M referred to Physical Therapy by Dr. Ramana Zamora MD with a diagnosis of L shoulder rot cuff repair with biceps tenodesis 08/15/22. Date of Evaluation: 06/30/23 Physical Therapist: Sudhakar Beckford, PT, ATC Visit Plan Frequency: 2-3x /Week Duration: 2-4 Months Plan: Begin with PROM x 2 weeks, then transition to AROM ex's. Begin strengthening at 8 weeks Subjective Subjective: DOS: 06/14/23. Pt reports he had a L shoulder supraspinatus and subs capularis repair at that time. pt also had subacromial decompression and a biceps tenodesis performed at that time. Pt reports he is glad he had the surgery at this time. Pt is feeling better overall at this time. Pt is icing now only PRN and is not taking any pain meds. Pt is R hand dominant. Pt believes he tore his shoulder tendons after walking his dog and taking a fall onto his L shoulder. 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 Pt denies tingling or numbness in L UE at this time. Pt reports no sleep difficulty for the past 3 nights. Pt is limited with all ADL's and IADl's at this time. Pt has been performing HEP of pendulums and AROM for L wrist and elbow. 0/10 pain in L shoulder at rest, 4/10 pain at its worst. Pain L shoulder: Pain Intensity (Out of 10): 0 Pain Intensity Range: 4 Objective Objective: Neuro: B UE sensation is WNL to light touch Observation: Incisions are mostly healed. No signs of infection. ROM: R shoulder AROM flex= 165, abd= 170, ER= 65, IR= WNL; L shoulder PROM flex= 80, abd= 80 degrees MMT: R shoulder flex= 19, abd= 33, ER= 30, IR= 34; L shoulder not tested this date. Balance/Special Test Scores Quick DASH Score: 63.6350 Goals Goal 1:: Decrease L shoulder pain x 50% to aid with IADl's Goal Time Frame: 6-8 Weeks Goal 2:: Increase L shoulder flex and abd ROM x 30 degrees to aid with overhead lifting Goal Time Frame: 6-8 Weeks Goal 3:: Increase L shoulder strength to 90% of R shoulder strength to aid with return to work Goal Time Frame: 6-8 Weeks Goal 4:: I with HEP Goal Time Frame: 6-8 Weeks Rehabilitation Potential Physical Therapy Diagnosis: Pt has L shoulder pain, weakness, and limited ROM secondary to L rotator cuff repair Rehabilitation Potential: Good Anticipated Interventions Patient/Client Instruction: Educate patient on: Condition and Plan of Care For the Purpose of:: To improve self management Therapeutic Exercise to Include: Strength training, Endurance training, Flex ibilty training, Passive ROM, Active ROM and Scapular Strength/Stabilization For the Purpose of:: To decrease pain, To increase ROM and To improve muscle performance and motor function Cryotherapy (ice pack, ice massage): Yes For the Purpose of:: To decrease pain Text: Thank you for the opportunity to evaluate your patient. For Medicare and Medicare HMO plans, please review the plan of care and approve it. It will need to be FAXED BACK to us at [phone] for Medicare purposes. For Medicare only, by signing this I certify the plan of care. Please let me know if there are questions or concerns regarding this plan of care. Physician Signature: Date:
--- NOTE | 2023-07-24 10:29 | HP.PTREVAL ---
Re-Evaluation Intro: Dr. Ramana Zamora MD, It has been my pleasure to treat HARJIT CALVILLO over the last 8 visits for L shoulder rot cuff repair with biceps tenodesis 06/14/23. Please see the progress note below for an update on the physical therapy plan of care! Subjective Subjective: Pt to see the doctor tomorrow. N pain today Objective Objective/Function: L shoulder pain ranges from 0-1/10 L shoulder AROM: flex= 90, abd= 60, ER= 45, IR= minimally limited Plan Plan Plan: Begin with PROM x 2 weeks, then transition to AROM ex's. Begin strengthening at 8 weeks Balance/Gait/Functional tests Balance/Special Test Scores Quick DASH Score: 31.8175 Goals Goals Goal 1:: Decrease L shoulder pain x 50% to aid with IADl's Goal Time Frame: 6-8 Weeks Goal 2:: Increase L shoulder flex and abd ROM x 30 degrees to aid with overhead lifting Goal Time Frame: 6-8 Weeks Goal 3:: Increase L shoulder strength to 90% of R shoulder strength to aid with return to work Goal Time Frame: 6-8 Weeks Goal 4:: I with HEP Goal Time Frame: 6-8 Weeks Anticipated Interventions Anticipated Interventions Patient/Client Instruction: Educate patient on: Condition and Plan of Care For the Purpose of:: To improve self management Therapeutic Exercise to Include: Strength training, Endurance training, Flexibilty training, Passive ROM, Active ROM and Scapular Strength/Stabilization For the Purpose of:: To decrease pain, To increase ROM and To improve muscle performance and motor function Cryotherapy (ice pack, ice massage): Yes For the Purpose of:: To decrease pain Re-Evaluation Ending Re-evaluation ending: Please do not hesitate to contact me at [phone] by phone or if you have questions or concerns regarding this new plan of care! Sincerely, Sudhakar Beckford, PT, ATC
--- NOTE | 2023-09-05 09:32 | HP.PTREVAL ---
Re-Evaluation Intro: Dr. Ramana Zamora MD, It has been my pleasure to treat HARJIT CALVILLO over the last 17 visits for L shoulder rot cuff repair with biceps tenodesis 06/14/23. Please see the progress note below for an update on the physical therapy plan of care! Subjective Subjective: I am doing well, My was pleased Objective Objective/Function: L shoulder pain is 0/10 today L shoulder ROM: flex= 145, abd= 155, ER= 70, IR= WNL L shoulder MMT: flex= 5, abd= 10, ER= 14, IR= 20 #F Pt has shown excellent gains with strength and ROM at this time Plan Plan Plan: Continue to progress strengthening at this time Balance/Gait/Functional tests Balance/Special Test Scores Quick DASH Score: 36.3625 Goals Goals Goal 1:: Decrease L shoulder pain x 50% to aid with IADl's Goal Time Frame: 6-8 Weeks Goal Progress: Goal Met Goal 2:: Increase L shoulder flex and abd ROM x 30 degrees to aid with overhead lifting Goal Time Frame: 6-8 Weeks Goal Progress: Progressing Goal 3:: Increase L shoulder strength to 90% of R shoulder strength to aid with return to work Goal Time Frame: 6-8 Weeks Goal Progress: Progressing Goal 4:: I with HEP Goal Time Frame: 6-8 Weeks Goal Progress: Progressing Anticipated Interventions Anticipated Interventions Patient/Client Instruction: Educate patient on: Condition and Plan of Care For the Purpose of:: To improve self management Therapeutic Exercise to Include: Strength training, Endurance training, Flexibilty training, Passive ROM, Active ROM and Scapular Strength/Stabilization For the Purpose of:: To decrease pain, To increase ROM and To improve muscle performance and motor function Cryotherapy (ice pack, ice massage): Yes For the Purpose of:: To decrease pain Re-Evaluation Ending Re-evaluation ending: Please do not hesitate to contact me at [phone] by phone or if you have questions or concerns regarding this new plan of care! Sincerely, Sudhakar Beckford, PT, ATC
--- NOTE | 2023-10-09 16:25 | HP.PTDCSUM ---
Discharge Summary D/C summary: It has been my pleasure to treat HARJIT CALVILLO referred by Dr. Ramana Zamora MD, with the diagnosis of L shoulder rot cuff repair with biceps tenodesis 06/14/23 for a total of 21 visit(s). Discharge Date: Please see the following information for a summary of their discharge status. Subjective Subjective: I am ready for discharge Pain L shoulder: Pain Intensity (Out of 10): 0 Overall Improvement % Improvement: 100 Objective Objective/Function: L shoulder pain 0/10 L shoulder ROM: flex= 150, abd= 165, ER= 80, IR= WNL L shoulder MMT: flex= 9, abd= 18, ER= 19, IR= 25 #F Pt is I with HEP Goals Goal 1:: Decrease L shoulder pain x 50% to aid with IADl's Goal Progress: Goal Met Goal 2:: Increase L shoulder flex and abd ROM x 30 degrees to aid with overhead lifting Goal Progress: Goal Met Goal 3:: Increase L shoulder strength to 90% of R shoulder strength to aid with return to work Goal Progress: Goal Met Goal 4:: I with HEP Goal Progress: Goal Met Plan Plan: Discharge to HEP D/C Information d/c sentence: If there are questions or concerns regarding this patient's physical therapy, please feel free to call me at [phone]. Thank you for the referral of this patient. Sincerely, Sudhakar Beckford, PT, ATC Balance/Gait/Functional tests Balance/Special Test Scores Quick DASH Score: 2.2725 Improvement % Improvement: 100
== END 2023-10-09 19:00 | disposition home or self-care (01) ==
LOC: PT 15:30
PROVIDERS: PCP Family Medicine Geriatric Medicine; Referring Provider Orthopaedic Surgery Sports Medicine; Visit Provider Orthopaedic Surgery Sports Medicine
DX: Z98.890 Other specified postprocedural states (principal)
CPT/HCPCS: 97110; 97140; 97161; 97164; 97530

== ENCOUNTER → 2024-02-26 | Outpatient (CLI) | payer OTHER, SELFPAY ==
--- NOTE | 2024-02-26 08:00 | MRI_ITS ---
STUDY: MRI RIGHT SHOULDER REASON FOR EXAM: Male, 63 years old. RIGHT SHOULDER PAIN TECHNIQUE: Standardized fat and water weighted pulse sequences were obtained in all 3 orthogonal planes. COMPARISON: None. FINDINGS: There is supraspinatus tendinosis with a partial articular supraspinatus tendon avulsion (PASTA) lesion measuring 1.0 cm in length (coronal T2 series 5 images 10-11). There is infraspinatus tendinosis with a linear interstitial/delaminating tear extending to its myotendinous junction (coronal T2 series 5 images 4-6). There is a full-thickness tear of the distal subscapularis tendon with 2.0 cm medial tendon retraction. Normal teres minor tendon. Normal supraspinatus muscle. Normal infraspinatus muscle. Normal subscapularis muscle. Normal teres minor muscle. There is a moderate glenohumeral joint effusion with fluid communicating into the subacromial-subdeltoid bursa. There is enthesopathic subcortical cyst formation of the greater tuberosity of the humeral head. There is medial dislocation of the long biceps tendon. Intact biceps labral complex. Normal labrum. Normal capsulo-ligamentous complex. There is mild hypertrophic acromioclavicular arthrosis, with inferior osteophyte formation, with mild effacement of the supraspinatus myotendinous junction. There is a Type II morphology (curved), with a neutral orientation. There is trace subacromial-subdeltoid bursal fluid. Normal visualized coracohumeral and coracoacromial ligaments. Normal quadrilateral space. Normal axillary space. Normal deltoid muscle. Normal trapezius muscle. MRI/Upper Ext Joint Only(Routine) IMPRESSION: Supraspinatus tendinosis with a partial articular supraspinatus tendon avulsion (PASTA) lesion measuring 1.0 cm in length. Infraspinatus tendinosis with a linear interstitial/delaminating tear extending to its myotendinous junction. Full-thickness tear of the distal subscapularis tendon with 2.0 cm medial tendon retraction. Moderate glenohumeral joint effusion with fluid communicating into the subacromial-subdeltoid bursa. Medial dislocation of the long biceps tendon. Mild hypertrophic acromioclavicular arthrosis, with inferior osteophyte formation, with mild effacement of the supraspinatus myotendinous junction. Minimal subacromial-subdeltoid bursitis. Electronically Signed: Robles Tinoco MD at 14:01 EDT ,
== END | disposition home or self-care (01) ==
PROVIDERS: PCP Family Medicine Geriatric Medicine; Referring Provider Nurse Practitioner Adult Health; Visit Provider Nurse Practitioner Adult Health
DX: M25.511 Pain in right shoulder (principal); S46.011A Strain of muscle(s) and tendon(s) of the rotator cuff of right shoulder, initial encounter; X58.XXXA Exposure to other specified factors, initial encounter
CPT/HCPCS: 73221

== ENCOUNTER 2024-06-07 05:26 | Day surgery (SDC) | payer OTHER, SELFPAY ==
--- NOTE | 2024-06-04 13:43 | EKG12_ITS ---
Test Reason : PRE OP Blood Pressure : */* mmHG Vent. Rate : 87 BPM Atrial Rate : 87 BPM P-R Int : 154 ms QRS Dur : 84 ms QT Int : 376 ms P-R-T Axes : 54 43 19 degrees QTcB Int : 452 ms Normal sinus rhythm Nonspecific ST abnormality Abnormal ECG Confirmed by DHAVAL ALBARADO, LEOPOLDO ([id number]), managing editor ALEJANDRO BEE ([id number]) on 06/05/2024 1:19:00 PM Referred By: Ramana Zamora Confirmed By: LEOPOLDO PUENTES MD
[2024-06-07] VITALS (9 sets, daily range): BP systolic 137–150; BP diastolic 89–100; PULSE 54–72; RESP 16–18; TEMP 35.9–36.5; O2SAT 89–99; BMI 29.7
--- NOTE | 2024-06-07 | TESH_PTH ---
PATIENT: HARJIT CALVILLO LOC: [facility] – [place] U#:[id number] AGE/SX: 63/M ROOM: RE06/07/[address]: Dr. Ramana Zamora MD : 1960 BED: DIS: 06/07/2024 SPEC #: [id number] RECD: 06/07/24 13:05 STATUS: SUSY REAnibal #: [id number] MELIZA: 06/07/24 00:[address]: Ramana Zamora DEPT: SURGICAL PATHOLOGY RECD BY: Jose Alva ENTERED: 06/07/24 13:05 SP TYPE: TENDON OTHR DR: Dr. Roney Das MD Tissues: Tendon and tendon sheath, NOS Procedures: Surgery Specimen Level III HEADER OPERATION: Right shoulder arthroscopy, subacromial decompression PRE-OP DIAGNOSIS: Right rotator cuff tear TISSUE SUBMITTED: Bicep tendon MICROSCOPIC DIAGNOSIS Bicep tendon, excision: Pieces of dense fibroconnective tissue with reactive changes, clinically rotator cuff tear. 06/10/2024 MICROSCOPIC DESCRIPTION Slides are reviewed. GROSS DESCRIPTION Received in fixative is one container labeled with the patient's name and designated Bicep tendon. The specimen consists of two pieces of warner indurated tissue measuring in aggregate 6.0 x 2.5 x 0.5cm. Engineering Production Liaison sections are submitted in one cassette. 06/07/2024 TC:5 CPT:77305
[2024-06-07] MEDS: 0.9% Normal Saline (1000mL) 1,000 ML 15 ML IV (06:13)
--- NOTE | 2024-06-07 07:05 | PCM.PRE.AN2 ---
ASA Classification* ASA Classification ASA Classification: 2 Assessment & Plan Anesthesia* Anesthesia Assessment Anesthesia Assessment: Discussed sedation and/or anesthesia options, risks, benefits, and alternatives with patient/parents/legal guardian/POA. Questions invited. The patient/parents/legal guardian/POA seems to understand and agrees to proceed with anesthesia plan. Reviewed the physical assessment, medical history, allergy history and patient home medications list prior to surgery/procedure/anesthetic and documented any changes. Performed airway and anesthesia risk assessments. Anesthesia Type Anesthesia Type: General and Block Anesthesia Focused Assessment* Temperature: 97.7 F Pulse Rate: 54 Blood Pressure: 144/91 Respiratory Rate: 18 Pulse Ox: 96 Airway Assessment Mouth opens: >3 cm Mallampati Score: II Focused Labs Anesthesia Preop lab: CBC WBC 6.6 K/mm3 (4.4-11.0) 05/30/23 06:16 RBC 5.32 M/mm3 (4.6-6.2) 05/30/23 06:16 Hgb 15.5 g/dL (13.0-16.5) 05/30/23 06:16 Hct 46.5 % (40-54) 05/30/23 06:16 Plt Count 245 K/mm3 (150-450) 05/30/23 06:16 CHEMISTRY Potassium 4.0 mmol/L (3.5-5.1) 02/06/23 06:59 Sodium 140 mmol/L (136-145) 02/06/23 06:59 Phosphorus 3.1 mg/dL (2.5-4.9) 02/06/23 06:59 BUN 11 mg/dL (7-18) 02/06/23 06:59 Creatinine 0.89 mg/dL (0.70-1.30) 02/06/23 06:59 Glucose 109 mg/dL (74-106) H 02/06/23 06:59 COAG Pre-Assessment Diagnosis/Proposed Procedure Planned Operative Procedure(s): RIGHT SHOULDER ARTHROSCOPY, SUBACROMIAL DECOMPRESSION, ROTATOR CUFF REPAIR, BICEPS TENODESIS Anesthesia History Anesthesia History - workplace relations adviser: Anesthesia History - workplace relations adviser Hx Hospitalization No 05/27/24 14:04 Any Problems With Anesthesia No 05/27/24 14:04 Cholinesterase deficiency No 05/27/24 14:04 You/Your Family Experience No 05/27/24 14:04 fever (hyperthermia) with Relationship Recent Exposure to Contagious No 06/07/24 05:54 Disease Does patient have nerve No 05/27/24 14:04 stimulator Patient instructed to have device shut off --Does patient have Pacemaker No 06/07/24 05:54 or ICD? When Was Last Pacemaker Check QUESTION #4 FULL TEXT: You/Your Family Experience fever (hyperthermia) with Anesthesia Last Oral Intake Last Oral intake: Last Oral Intake NPO since 17:30 06/07/24 05:54 Meds taken in AM with sips of Yes 06/07/24 05:54 water? Meds patient instructed to take am of surgery PONV PONV - workplace relations adviser: PONV - workplace relations adviser Female No 05/27/24 14:04 HX of Motion Sickness No 05/27/24 14:04 HX of N/V After Surgery No 05/27/24 14:04 Non-Smoker Yes 05/27/24 14:04 Duration of Surgery greater Yes 05/27/24 14:04 than 60 minutes Number of Risk Factors 2 05/27/24 14:04 PONV Score Moderate Risk 05/27/24 14:04 Height & Weight Height & Weight: Anesthesia: Height & Weight Height 5 ft 10 in 06/07/24 05:54 Weight: 94.2 kg 06/07/24 05:54 Body Mass Index (BMI) 29.7 06/07/24 05:54 Respiratory Assessment Respiratory Assessment - workplace relations adviser: Respiratory Tract Infection Hx - workplace relations adviser Hx Respiratory Tract Infection No 05/27/24 14:04 STOP Sleep Apnea STOP Sleep Apnea - workplace relations adviser: STOP Sleep Apnea - workplace relations adviser Hx Hypertension Yes: CONTROLLED WITH MEDS 05/27/24 14:04 Hx Sleep Apnea Yes 05/27/24 14:04 CPAP Yes 05/27/24 14:04 BIPAP No 05/27/24 14:04 Do you snore loudly (louder than talking or can be heard Do you often feel tired/ fatigued/ sleepy during daytime? Has anyone observed you stop breathing during sleep? STOP Results Positive 05/27/24 14:04 QUESTION #5 FULL TEXT : Do you snore loudly (louder than talking or can be heard through closed doors)? Tobacco Use History Tobacco Use History - workplace relations adviser: Tobacco Use History - workplace relations adviser Tobacco Use Smoking Status Former smoker 05/27/24 14:04 Hx Tobacco Use No 05/27/24 14:04 Years Smoking Packs Smoked per Day Smoking Cessation Date was Yes - quit smoking within 15 05/27/24 14:04 within the last 15 years years Hx Smoking Cessation Date 06/19/09 05/27/24 14:04 Hx Smoking Cessation No 05/27/24 14:04 Counseling Hematologic Medial History Hematologic Hx - workplace relations adviser: Hematologic Medical Hx - medical lead Hx of Blood Transfusion Yes 05/27/24 14:04 Hx of Transfusion in last 3 No 05/27/24 14:04 Months Date of Last Transfusion (if within last 3 months) Ever experience any problems No 05/27/24 14:04 with transfusion(s)? Specify any problems Hx of Preganancy in last 3 N/A 05/27/24 14:04 Months Nurse Filling Out Transfusion [id number] 05/27/24 14:04 & Questions: Date: 05/27/24 05/27/24 14:04 Time: 14:06 05/27/24 14:04 Patient unable to answer at this time (ie. confused, unrespo /Reproduction History /Reproductive History - workplace relations adviser: /Reproductive Hx- workplace relations adviser Hx Now Gestational Age (in weeks): EDC: Hx Hx Para Hx Section SAB No 05/27/24 14:04 Active Medications Active Medications: Current Medications Generic Name Dose Route Start Last Admin Trade Name Freq PRN Reason Stop Dose Admin Cefazolin Sodium 2 gm/ N/A 20 mls @ 400 mls/hr 06/07/24 07:30 IV 06/07/24 07:32 PREOP ONE Sodium Chloride 1,000 mls @ 15 mls/hr 06/07/24 05:45 06/07/24 06:13 IV 06/12/24 19:04 15 mls/hr .Q48H ELLIE Administration Protocol PFSH Medical History Right rotator cuff tear PONV (postoperative nausea and vomiting) History of diverticulitis Neuropathy Sciatic leg pain Partial tear of left subscapularis tendon Left rotator cuff tear Left shoulder pain History of epidural anesthesia Wears glasses Cancer Alcohol use Hematoma Arthritis Restless legs Back pain Former smoker CPAP (continuous positive airway pressure) dependence Leg cramps History of edema History of stress test Scoliosis deformity of spine Hypertension Home Medications ?Medication ?Instructions ?Recorded ?Last Taken ?Type multivitamin with minerals 1 tab PO DAILY 12/08/20 06/06/24 History gabapentin 300 mg capsule 300 mg PO 4X/DAY 11/01/21 06/07/24 History tizanidine 4 mg capsule (Zanaflex) 4 mg PO BID 11/01/21 06/06/24 History saw palmetto 160 mg capsule 320 mg PO BID 05/10/23 06/06/24 History ascorbic acid (vitamin C) 500 mg 500 mg PO DAILY PRN winter05/29/23 06/06/24 History tablet (C-500) ONLY zinc 50 mg capsule 50 mg PO DAILY PRN winter05/29/23 06/06/24 History cetirizine 10 mg capsule (All Day 10 mg PO DAILY 04/03/24 06/07/24 History Allergy (cetirizine)) psyllium husk 0.4 gram capsule 0.8 g PO QDAY 04/03/24 06/06/24 History (Daily Fiber) amlodipine 5 mg tablet 5 mg PO QHS 05/27/24 06/06/24 History lisinopril 20 mg tablet 20 mg PO DAILY 05/27/24 06/07/24 History Allergy/AdvReac Type Severity Reaction Status Date / Time orphenadrine citrate (From Allergy Severe Hives, Verified 06/07/24 05:52 Norflex) restricted airway tamsulosin (From Flomax) AdvReac Urinary Verified 06/07/24 05:52 retention Family History Mother Heart disease Diabetes type 2, uncontrolled S/P CABG x 4 Glaucoma Father Stage 4 malignant neoplasm of lung Surgical History History of arthroscopy of shoulder Hx of cystoscopy History of colonoscopy History of lithotripsy Hx of toe surgery Hx of toe surgery Hx of excision of mass History of spinal fusion for scoliosis Hx of cholecystectomy Social History household members: spouse Smoking Status: Former smoker alcohol intake: never Review of Systems (Anesthesia) ROS Narrative System reviewed and no additional complaints, except as documented.
--- NOTE | 2024-06-07 07:07 | PCM.HP.STD ---
HPI - General HPI Narrative HARJIT CALVILLO, is a 63 M who presents for right shoulder arthroscopy, subacromial decompression, rotator cuff repair, biceps tenodesis. no changes to h and p. right shoulder marked. rab, post op instructions, narcotic counselling. ok to proceed. no further questions or concerns. MR#: [id number] Acct: [id number] Name: HARJIT CALVILLO Rep #: [id number] : 1960 Provider: Dr. Ramana Zamora MD Age/Sex: 63/M Location: [facility] [place].ANJELICA Status: Signed Intake Vital Signs 02/01/2412:35 Height 5 ft 10 in Intake Visit Reasons: RIGHT SHOULDER Accompanied by: Self Is patient in pain?: Yes Pain scale (1-10): 8 Allergies orphenadrine citrate (From Norflex) Allergy (Severe, Verified 02/29/24 08:24) Hives, restricted airwaytamsulosin (From Flomax) Adverse Reaction (Verified 02/29/24 08:24) Urinary retention Medications ?Medication ?Instructions ?Recorded ?Confirmed ?Type lisinopril 10 mg tablet 20 mg PO DAILY 01/02/15 02/29/24 History amlodipine 10 mg tablet 5 mg PO QHS 12/08/20 02/29/24 History multivitamin with minerals 1 tab PO DAILY 12/08/20 02/29/24 History gabapentin 300 mg capsule 300 mg PO 4X/DAY 11/01/21 02/29/24 History tizanidine 4 mg capsule (Zanaflex) 4 mg PO BID 11/01/21 02/29/24 History tramadol 50 mg tablet 50 mg PO TID 11/01/21 02/29/24 History docusate sodium 50 mg capsule 50 mg PO DAILY 03/29/22 02/29/24 History saw palmetto 160 mg capsule 160 mg PO BID 05/10/23 02/29/24 History ascorbic acid (vitamin C) 500 mg 500 mg PO DAILY 05/29/23 02/29/24 History tablet (C-500) cyanocobalamin (B12)-cobamamide 1 camilo sublingual DAILY 05/29/23 02/29/24 History 5,000 mcg-100 mcg sublingual lozenge (B12) zinc 50 mg capsule 50 mg PO DAILY 05/29/23 02/29/24 History PFSH Medical History PONV (postoperative nausea and vomiting) History of diverticulitis Neuropathy Sciatic leg pain Partial tear of left subscapularis tendon Left rotator cuff tear Left shoulder pain History of epidural anesthesia Wears glasses Cancer Alcohol use Hematoma Arthritis Restless legs Back pain Former smoker CPAP (continuous positive airway pressure) dependence Leg cramps History of edema History of stress test Scoliosis deformity of spine Hypertension Surgical History Hx of cystoscopy History of colonoscopy History of lithotripsy Hx of toe surgery Hx of toe surgery Hx of excision of mass History of spinal fusion for scoliosis Hx of cholecystectomy Family History Mother Heart disease Diabetes type 2, uncontrolled S/P CABG x 4 GlaucomaFather Stage 4 malignant neoplasm of lung Social History household members: spouse Smoking Status: Former smoker alcohol intake: never HPI RIGHT SHOULDER Details: This documentation accurately reflects the service provided and the decisions made by me, Dr. Ramana Zamora MD 02/29/24 0806. Part of today?s visit was documented by [ ], acting as scribe. HARJIT CALVILLO is a 63 year old M here today for 3 months hx of right shoulder pain. dogs pulled on the leash and there was a pop. worse at night. lateral side. [place] - ice. creams. at home strengthening with bands for 6 weeks. Supplemental Info [facility] Imaging Services [address] [place] [id number] Upper Ext Joint Only(Routine) MR#: [id number] Acct: [id number] Name: HARJIT CALVILLO Rep #: [id number] : 1960 M 63 From: Robles Tinoco MD PCP: Dr. Roney Das MD Status: REG CLI Study: Upper Ext Joint Only(Routine) Date of Exam: 02/26/24 Exam# [id number] Ordering Dr: Lizzy Robledo ORACLE ANALYST-C STUDY: MRI RIGHT SHOULDER REASON FOR EXAM: Male, 63 years old. RIGHT SHOULDER PAIN TECHNIQUE: Standardized fat and water weighted pulse sequences were obtained in all 3 orthogonal planes. COMPARISON: None. FINDINGS: There is supraspinatus tendinosis with a partial articular supraspinatus tendon avulsion (PASTA) lesion measuring 1.0 cm in length (coronal T2 series 5 images 10-11). There is infraspinatus tendinosis with a linear interstitial/delaminating tear extending to its myotendinous junction (coronal T2 series 5 images 4-6). There is a full-thickness tear of the distal subscapularis tendon with 2.0 cm medial tendon retraction. Normal teres minor tendon. Normal supraspinatus muscle. Normal infraspinatus muscle. Normal subscapularis muscle. Normal teres minor muscle. There is a moderate glenohumeral joint effusion with fluid communicating into the subacromial-subdeltoid bursa. There is enthesopathic subcortical cyst formation of the greater tuberosity of the humeral head. There is medial dislocation of the long biceps tendon. Intact biceps labral complex. Normal labrum. Normal capsulo-ligamentous complex. There is mild hypertrophic acromioclavicular arthrosis, with inferior osteophyte formation, with mild effacement of the supraspinatus myotendinous junction. There is a Type II morphology (curved), with a neutral orientation. There is trace subacromial-subdeltoid bursal fluid. Normal visualized coracohumeral and coracoacromial ligaments. Normal quadrilateral space. Normal axillary space. Normal deltoid muscle. Normal trapezius muscle. MRI/Upper Ext Joint Only(Routine) IMPRESSION: Supraspinatus tendinosis with a partial articular supraspinatus tendon avulsion (PASTA) lesion measuring 1.0 cm in length. Infraspinatus tendinosis with a linear interstitial/delaminating tear extending to its myotendinous junction. Full-thickness tear of the distal subscapularis tendon with 2.0 cm medial tendon retraction. Moderate glenohumeral joint effusion with fluid communicating into the subacromial-subdeltoid bursa. Medial dislocation of the long biceps tendon. Mild hypertrophic acromioclavicular arthrosis, with inferior osteophyte formation, with mild effacement of the supraspinatus myotendinous junction. Minimal subacromial-subdeltoid bursitis. Electronically Signed: Robles Tinoco MD at 14:01 EDT , I independently reviewed the imaging. Concur with radiologist report. xr 4 view r shoulder - nil acute. Sclerosis of the greater tuberosity. Glenohumeral joint space well-maintained. Coding Level of Care Code Off vis,est,level 3 Diagnoses Right rotator cuff tear M75.101 Assessment and Plan Assessment and Plan (1) Right rotator cuff tear: Status: Acute Plan: 63-year-old man with right shoulder rotator cuff tear of the supraspinatus and subscapularis as well as dislocation medially of the biceps long head tendon. Patient has similar picture on the other side did well with surgery. Began explained the diagnosis prognosis different treatment options including but not limited to rest ice anti-inflammatories activity modification subacromial cortisone injections physical therapy or surgery. In this case surgery in the form of the right shoulder arthroscopy, subacromial decompression, rotator cuff repair, biceps tenodesis. The patient understands wished to proceed signed exam form for surgery we will submit for insurance approval. Pros and cons risks and benefits were discussed with the patient including but not limited to infection, pain, stiffness, bleeding, damage to surrounding structures, neurovascular injury, recurrence or retear, failure or wear of hardware or fixation, instability, fracture, deep vein thrombosis and pulmonary embolism, anesthetic risks, , patient dissatisfaction, need for further surgery and other risks. Patient understood and wished to proceed with surgery, and signed the informed consent documentation. Orders: Orders Shoulder min 2 Views Today M75.101 - Unspecified rotator cuff tear or rupture of right shoulder, not specified as traumatic Ortho Exam General General: Yes no acute distress Neurologic: Yes alert and Yes oriented x3 Psychologic: Yes reasonable and appropriate Right Shoulder Skin/Wound: Yes CDI, No ecchymosis, No erythema and No swelling Testing: Positive Hawkin's, Neer's, Speed's, TTP Biceps, AROM-Forward Elevation 0-180, AROM-External Rotation at side 0-60 and empty can; Negative TTP AC Joint, Drop Arm, cross arm or scapular winging SHOULDER: normal motor and sens to ax nerve, and MRU and AIN/PIN strength fe 4/5, er 5/5 bear hug 5/5. [facility] Medical History Right rotator cuff tear PONV (postoperative nausea and vomiting) History of diverticulitis Neuropathy Sciatic leg pain Partial tear of left subscapularis tendon Left rotator cuff tear Left shoulder pain History of epidural anesthesia Wears glasses Cancer Alcohol use Hematoma Arthritis Restless legs Back pain Former smoker CPAP (continuous positive airway pressure) dependence Leg cramps History of edema History of stress test Scoliosis deformity of spine Hypertension Home Medications ?Medication ?Instructions ?Recorded ?Last Taken ?Type multivitamin with minerals 1 tab PO DAILY 12/08/20 06/06/24 History gabapentin 300 mg capsule 300 mg PO 4X/DAY 11/01/21 06/07/24 History tizanidine 4 mg capsule (Zanaflex) 4 mg PO BID 11/01/21 06/06/24 History saw palmetto 160 mg capsule 320 mg PO BID 05/10/23 06/06/24 History ascorbic acid (vitamin C) 500 mg 500 mg PO DAILY PRN winter05/29/23 06/06/24 History tablet (C-500) ONLY zinc 50 mg capsule 50 mg PO DAILY PRN winter05/29/23 06/06/24 History cetirizine 10 mg capsule (All Day 10 mg PO DAILY 04/03/24 06/07/24 History Allergy (cetirizine)) psyllium husk 0.4 gram capsule 0.8 g PO QDAY 04/03/24 06/06/24 History (Daily Fiber) amlodipine 5 mg tablet 5 mg PO QHS 05/27/24 06/06/24 History lisinopril 20 mg tablet 20 mg PO DAILY 05/27/24 06/07/24 History Allergy/AdvReac Type Severity Reaction Status Date / Time orphenadrine citrate (From Allergy Severe Hives, Verified 06/07/24 05:52 Norflex) restricted airway tamsulosin (From Flomax) AdvReac Urinary Verified 06/07/24 05:52 retention Family History Mother Heart disease Diabetes type 2, uncontrolled S/P CABG x 4 Glaucoma Father Stage 4 malignant neoplasm of lung Surgical History History of arthroscopy of shoulder Hx of cystoscopy History of colonoscopy History of lithotripsy Hx of toe surgery Hx of toe surgery Hx of excision of mass History of spinal fusion for scoliosis Hx of cholecystectomy Social History household members: spouse Smoking Status: Former smoker alcohol intake: never Vital Signs Vital Signs Vital Signs: 06/07/24 05:54 06/07/24 05:54 06/07/24 07:05 Temperature 97.7 F L 97.7 F L Temperature Source Temporal Pulse Rate 54 L 54 L Respiratory Rate 18 18 Respiratory Pattern Normal Blood Pressure 144/91 H 144/91 H Blood Pressure Mean 108 Blood Pressure Source Monitor Blood Pressure Position Semi-Fowlers Blood Pressure Location Left Arm Pulse Ox 96 96 Oxygen Delivery Method Room Air Weight Weight: 207 lb 10.807 oz Body Mass Index (BMI) 29.7
[2024-06-07] MEDS: Cefazolin 2 GM in Syringe IV (07:55)
[2024-06-07] MEDS: Epinephrine (1 mg/ml) 1 MG/ML VIAL (08:38)
--- NOTE | 2024-06-07 09:56 | EX.PCM.DISCH ---
Discharge Instructions Diet Discharge Diet: No restrictions Activity Ice area for (Minutes): 10 Lifting Restrictions: pendulums 4x/day, no lifting over 1 pound Additional Activity Instructions:: ok to remove sling while at rest Dressing / Incision Call your doctor if your incision/area has: Continuous Slow Oozing, Sudden Increased Bleeding, Increased Pain/ Swelling, Increased Redness, Foul Smelling Discharge and Swelling at the incision site Call your doctor if you observe: Fever of 101 or Higher, Coldness, Increased Pain and Numbness or Tingling Remove Dressing in: leave in place till F/U Cleanse incision/area with: Do not get Incision Wet Follow Up Care Please Follow Up With: Ramana Zamora MD When: next week Test Results: Test results from this visit will be discussed in further detail at your follow-up appointment, if applicable. Discharge Plan Admission Attending Provider: Ramana Zamora Primary Care Provider: Roney Das Instructions Print Language: Citizen Of [place] Discharge Orders/Prescriptions Prescriptions: New oxycodone-acetaminophen [Endocet] 5-325 mg tablet 1 tab PO Q4H MDD 6 PRN (Reason: pain) 5 Days Qty: 30 0RF No Action saw palmetto 160 mg capsule 320 mg PO BID Rx Instructions: give with meal/snack gabapentin 300 mg capsule 300 mg PO 4X/DAY tizanidine [Zanaflex] 4 mg capsule 4 mg PO BID Rx Instructions: 1 TAB IN A.M.; 2 TAB QHS ascorbic acid (vitamin C) [C-500] 500 mg tablet 500 mg PO DAILY PRN (Reason: winter ONLY) zinc 50 mg capsule 50 mg PO DAILY PRN (Reason: winter) psyllium husk [Daily Fiber] 0.4 gram capsule 0.8 g PO QDAY All Day Allergy (cetirizine) 10 mg capsule 10 mg PO DAILY lisinopril 20 mg tablet 20 mg PO DAILY amlodipine 5 mg tablet 5 mg PO QHS multivitamin with minerals Tablet 1 tab PO DAILY Referrals / Follow Up: Roney Das MD [Primary Care Provider] - Ramana Zamora MD [Med Staff - Active Staff] - Disposition Disposition (needs filled in before D/C Order can be placed): Home, Self Care
--- NOTE | 2024-06-07 09:58 | PCM.OPRPT ---
Problems Associated Problem List Diagnoses (1) Partial tear of left subscapularis tendon: (2) Right rotator cuff tear: Procedures Musculoskeletal [id number]-[id number]: Other Procedure See Report Operative Report (Standard) Operative Information Date of Procedure: 06/07/24 Pre-Operative Diagnosis: Right shoulder impingement syndrome rotator cuff tears of the supraspinatus and subscapularis and subluxation of the biceps Post-Operative Diagnosis: Same Surgery/Procedure Performed: Right shoulder arthroscopy, subacromial decompression, rotator cuff repair of supraspinatus and subscapularis as well as separate open incision biceps tenodesis provisioning analyst: Yes Household Coordinator: blank Tasks completed by election assistant: Retracting Additional assistant librarian?: No Type of Anesthesia: Block,Regional and General RN Documented Start/Stop Times: Operation Date: 06/07/24 07:30 Case Time Into Pre-Op 06/07/24 05:41 Out of Pre-Op 06/07/24 07:30 Anesthesia Start 06/07/24 07:55 Into Room 06/07/24 07:55 Procedure Start 06/07/24 08:15 Procedure End 06/07/24 09:49 Anesthesia End 06/07/24 09:56 Out of Room 06/07/24 09:56 Procedure Start Time: 08:15 Procedure Stop Time: 09:49 Select all DRAINS/GRAFTS/IMPLANTS that apply: Implanted device Implanted device details: Arthrex anchors bio composite swivel lock and tension tight biceps button Estimated Blood Loss: 50 Specimen collected: Yes Description of specimen(s) removed: lhb biceps Description of surgery: Patient brought to the operating room theater. Placed supine on the table. 2 g IV Ancef administered prior to the start of the procedure. General anesthesia induced. Patient transferred right side up lateral decubitus beanbag positioner. All bony prominences were padded. Axillary roll used SCDs and legs. Upper extremity prepped and draped in usual sterile fashion with chlorhexidine-based prep solution allowing over 3 minutes drying time prior to draping. 10 pounds of inline traction 45 degrees of abduction was used. Preoperative timeout performed to confirm the site patient the surgery. Began by inserting the arthroscope into the intra-articular portion of the shoulder through a standard posterior arthroscopy portal. Made an accessory anterior portal using inside out spinal needle localization. No loose bodies. Mild osteoarthritis cartilage grade 1 changes glenoid and humeral head. No tears of the infraspinatus or teres minor. There is fraying of the biceps tendon and hypertrophy with subluxation out of the groove medially. I elected to perform a intra-articular biceps tenotomy to prepare for a later biceps tenodesis. There was a full-thickness along the anterior footprint of the supraspinatus [id number]. There is also high-grade full-thickness tearing at the subscapularis. I inserted the cannula through the anterior rotator interval. I release adhesions along the subscapularis. Despite this it was still quite stiff to get to the original footprint. I used the power pick instrument to perform multiple small holes trephination's for bleeding bed for healing and cleared away any soft tissue remaining. I placed 2 luggage tag Arthrex #2 FiberWire sutures and then inserted these into a 4.75 mm bio composite swivel lock anchor at the footprint of the subscapularis. I then inserted the arthroscope into the subacromial space. Moderate burtitis removed. There is type II acromion with quite a bit of downsloping of the anterolateral aspect so I flattened this out using a high-speed shruti instrument by about 5 mm. I gently debrided the tear of the anterior SS tendon, cleared the footprint and used the power pick to stimulate healing. i placed an inverted U horizontal mattress fiber tape suture, then a luggage tag stitch medial to that to create a rip stop configuration. Then inserted those 3 free end sutures into arthrex biocomposite 4.75mm swivelock anchor. Good compression at the footprint. Arthroscopy pictures taken and saved throughout this case. I then turned my attention to the biceps tenodesis. I made a 1 inch longitudinal incision centered at the proximal upper medial border of the humerus overlying the long head of the biceps. Carried the dissection down through skin and subcutaneous tissue achieved meticulous hemostasis. Incised the fascia in line with skin incision. Identified the long head of the biceps deliver this through the incision and shorten up the tendon. I then used the locking loop luggage tag configuration suture with the distal end of the suture passing distal to the initial locking loop and then from anterior to posterior passed the suture back through the tendon. I drilled a unicortical hole in the mid aspect of the humerus distal to the pectoralis major insertion. I irrigated any bone dust passed the free end of the suture through the Arthrex biceps button tension type button. I then passed the button into the unicortical hole flipped the button and delivered the tendon to the repair site by pulling on the free end of the suture. Suture was cut short wound thoroughly irrigated. Wounds closed with 2-0 Vicryl suture and 3-0 Monocryl. Skin cleaned with wet dry dressing followed application of Steri-Strips Adaptic 4 x 4 gauze ABD dressing cloth tape and an abduction pillow sling for the upper extremity. Patient woken up from the general anesthetic transferred off the operating table and taken postanesthetic care unit in stable condition. All sponge needle instrument counts were correct no complications plan to the patient discharged home going to day surgery criteria and follow-up in the [place]. cpt 07967, [id number], [id number] Surgical Findings: as above, cuff tear, biceps subluxation, impingement. Complications Complications: No Admit VTE Documentation VTE Present on Admission: No VTE Mechan Device Prophylaxis: SCD's VTE Pharm Prophylaxis ordered?: No Reason prophylaxis not ordered: Treatment Not Indicated
[2024-06-07] MEDS: HYDROcodone Bitartrate/Apap 5/325 Tablet PO (10:46)
--- NOTE | 2024-06-07 10:50 | PCM.POST.ANE ---
Anesthesia: Postop Eval I Current Vital Signs Temperature: 97.6 F Pulse Rate: 72 Blood Pressure: 150/95 Respiratory Rate: 16 Pulse Ox: 98 Oxygen Delivery Method: Room Air Assessment Airway patent: No Spontaneous unlabored respirations: No Mental status: Awake and Calm nausea: No Vomiting: No Anesthesia Complication: No Fluid Hydration Crystalloid volume administer (ml): 1,200 Total IV fluid infused: 1,200 Progress Note Anesthesia document: Postop Eval 1 completed: Yes
--- NOTE | 2024-06-07 12:11 | POSTOPAN2_ITS ---
Anesthesia Postop Eval I Sum Postop Eval Completion status Anesthesia document: Postop Eval 1 completed: Yes Anesthesia Postop Eval I Summary Anesthesia Postop Eval I Summary: Anesthesia Postop Eval I: Assessment Summary Airway patent No 06/07/24 10:51 LEAD SALES CONSULTANT.MDOT Spontaneous unlabored No 06/07/24 10:51 LEAD SALES CONSULTANT.MDOT respirations Mental status Awake,Calm 06/07/24 10:51 LEAD SALES CONSULTANT.MDOT nausea No 06/07/24 10:51 LEAD SALES CONSULTANT.MDOT Vomiting No 06/07/24 10:51 LEAD SALES CONSULTANT.MDOT Anesthesia Postop Eval I: Fluid Summary Crystalloid volume administer 1,200 06/07/24 10:51 LEAD SALES CONSULTANT.MDOT (ml) Colloids volume administered ( ml) Blood Product volume administered (ml) Total IV fluid infused 1,200 06/07/24 10:51 LEAD SALES CONSULTANT.MDOT Anesthesia Postop Eval I: Summary Notes Anesthesia Complication No 06/07/24 10:51 LEAD SALES CONSULTANT.MDOT Anesthesia Complication Comment: Post-operative progress note Anesthesia: Postop Eval II Evaluation Mental status: Awake Pain Level: 2 nausea: No Vomiting: No
--- NOTE | 2024-06-07 12:11 | PCM.POSTANE2 ---
Anesthesia Postop Eval I Sum Postop Eval Completion status Anesthesia document: Postop Eval 1 completed: Yes Anesthesia Postop Eval I Summary Anesthesia Postop Eval I Summary: Anesthesia Postop Eval I: Assessment Summary Airway patent No 06/07/24 10:51 CROSSING TENDER.MDOT Spontaneous unlabored No 06/07/24 10:51 CROSSING TENDER.MDOT respirations Mental status Awake,Calm 06/07/24 10:51 CROSSING TENDER.MDOT nausea No 06/07/24 10:51 CROSSING TENDER.MDOT Vomiting No 06/07/24 10:51 CROSSING TENDER.MDOT Anesthesia Postop Eval I: Fluid Summary Crystalloid volume administer 1,200 06/07/24 10:51 CROSSING TENDER.MDOT (ml) Colloids volume administered ( ml) Blood Product volume administered (ml) Total IV fluid infused 1,200 06/07/24 10:51 CROSSING TENDER.MDOT Anesthesia Postop Eval I: Summary Notes Anesthesia Complication No 06/07/24 10:51 CROSSING TENDER.MDOT Anesthesia Complication Comment: Post-operative progress note Anesthesia: Postop Eval II Evaluation Mental status: Awake Pain Level: 2 nausea: No Vomiting: No
== END 2024-06-07 11:30 | disposition home or self-care (01) ==
LOC: SDC 05:26 → AC 05:27
PROVIDERS: PCP Family Medicine Geriatric Medicine; Referring Provider Orthopaedic Surgery Sports Medicine; Visit Provider Orthopaedic Surgery Sports Medicine
PROC: (CPT 29805; principal; 2024-06-07 07:10)
DX: M75.101 Unspecified rotator cuff tear or rupture of right shoulder, not specified as traumatic (principal); S46.812A Strain of other muscles, fascia and tendons at shoulder and upper arm level, left arm, initial encounter; I10 Essential (primary) hypertension; Z87.891 Personal history of nicotine dependence; Z79.899 Other long term (current) drug therapy; X58.XXXA Exposure to other specified factors, initial encounter
CPT/HCPCS: 29827; 23430; 29826; 64415; 01630; 88304; 93005; C1713; J2405

== ENCOUNTER 2024-08-07 09:00 | Outpatient (RCR) | payer OTHER, SELFPAY ==
--- NOTE | 2024-06-24 12:25 | HP.PTEVAL_ITS ---
Patient's Visit Information Visit Information Visit Information: HARJIT CALVILLO is a 64 year old M referred to Physical Therapy by Dr. Ramana Zamora MD with a diagnosis of R rotator cuff repair 06/07/24. Date of Evaluation: 06/24/24 Physical Therapist: Sudhakar Beckford, PT, ATC Visit Plan Frequency: 2-3x /Week Duration: 6-8 weeks Plan: R shoulder PROM x 2-4 weeks progressing to AROM at that time. Begin strengthening when ordered per surgeon consisting of rotator cuff strengthening and scap stab ex's. Subjective Subjective: DOS: 06/07/24. Pt had a R rotator cuff repair at that time. Pt reports he is feeling pretty good at this time. Pt notes no PMHx of R shoulder complications in the past. Pt reports he had a L rotator cuff repair one year ago and it is doing well. No tingling or numbness in R UE at this time. No sleep difficulty secondary to pain. Pt is R hand dominant. 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 Pt reports he is supposed to continue wearing his sling through today, but then can go without his sling starting tomorrow. Pt reports he has not been performing a ny HEP at this time, but plans on starting them tomorrow. 0/10 pain at rest. Pain R shoulder: Pain Intensity (Out of 10): 0 Objective Objective: Observation: Incisions are healing well at this time. No signs of infection Neuro: B UE sensation is WNL to light touch. ROM: L shoulder AROM flex= 160, abd= 160, ER= 70, IR= WNL; R shoulder PROM flex and scap= 80 degrees MMT: L shoulder flex= 14, abd= 21, ER= 21, IR= 26; R shoulder not tested Balance/Special Test Scores Quick DASH Score: 50.0000 Goals Goal 1:: Increase R shoulder ROM to equal L shoulder ROM to aid with IADL's Goal Time Frame: 6-8 Weeks Goal 2:: Increase R shoulder strength to 90% L shoulder strength to aid with IADL's Goal Time Frame: 6-8 Weeks Goal 3:: I with HEP Goal Time Frame: 6-8 Weeks Rehabilitation Potential Physical Therapy Diagnosis: Pt has R shoulder pain, weakness, and limited ROM secondary to R shoulder rotator cuff repair Rehabilitation Potential: Good Anticipated Interventions Patient/Client Instruction: Educate patient on: Condition and Plan of Care For the Purpose of:: To improve self management Therapeutic Exercise to Include: Strength training, Flexibilty training, Passive ROM, Active ROM and Scapular Strength/Stabilization For the Purpose of:: To decrease pain, To increase ROM and To improve muscle performance and motor function Cryotherapy (ice pack, ice massage): Yes For the Purpose of:: To decrease pain Text: Thank you for the opportunity to evaluate your patient. For Medicare and Medicare HMO plans, please review the plan of care and approve it. It will need to be FAXED BACK to us at [phone] for Medicare purposes. For Medicare only, by signing this I certify the plan of care. Please let me know if there are questions or concerns regarding this plan of care. Physician Signature: Date:
--- NOTE | 2024-06-24 12:32 | HP.PTEVAL_ITS ---
Patient's Visit Information Visit Information Visit Information: HARJIT CALVILLO is a 64 year old M referred to Physical Therapy by Dr. Ramana Zamora MD with a diagnosis of R rotator cuff repair 06/07/24. Date of Evaluation: 06/24/24 Physical Therapist: Sudhakar Beckford, PT, ATC Visit Plan Frequency: 2-3x /Week Duration: 6-8 weeks Plan: R shoulder PROM x 2-4 weeks progressing to AROM at that time. Begin strengthening when ordered per surgeon consisting of rotator cuff strengthening and scap stab ex's. Subjective Subjective: DOS: 06/07/24. Pt had a R rotator cuff repair at that time. Pt reports he is feeling pretty good at this time. Pt notes no PMHx of R shoulder complications in the past. Pt reports he had a L rotator cuff repair one year ago and it is doing well. No tingling or numbness in R UE at this time. No sleep difficulty secondary to pain. Pt is R hand dominant. 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 Pt reports he is supposed to continue wearing his sling through today, but then can go without his sling starting tomorrow. Pt reports he has not been performing a ny HEP at this time, but plans on starting them tomorrow. 0/10 pain at rest. Pain R shoulder: Pain Intensity (Out of 10): 0 Objective Objective: Observation: Incisions are healing well at this time. No signs of infection Neuro: B UE sensation is WNL to light touch. ROM: L shoulder AROM flex= 160, abd= 160, ER= 70, IR= WNL; R shoulder PROM flex and scap= 80 degrees MMT: L shoulder flex= 14, abd= 21, ER= 21, IR= 26; R shoulder not tested Balance/Special Test Scores Quick DASH Score: 50.0000 Goals Goal 1:: Increase R shoulder ROM to equal L shoulder ROM to aid with IADL's Goal Time Frame: 6-8 Weeks Goal 2:: Increase R shoulder strength to 90% L shoulder strength to aid with IADL's Goal Time Frame: 6-8 Weeks Goal 3:: I with HEP Goal Time Frame: 6-8 Weeks Rehabilitation Potential Physical Therapy Diagnosis: Pt has R shoulder pain, weakness, and limited ROM secondary to R shoulder rotator cuff repair Rehabilitation Potential: Good Anticipated Interventions Patient/Client Instruction: Educate patient on: Condition and Plan of Care For the Purpose of:: To improve self management Therapeutic Exercise to Include: Strength training, Flexibilty training, Passive ROM, Active ROM and Scapular Strength/Stabilization For the Purpose of:: To decrease pain, To increase ROM and To improve muscle performance and motor function Cryotherapy (ice pack, ice massage): Yes For the Purpose of:: To decrease pain Text: Thank you for the opportunity to evaluate your patient. For Medicare and Medicare HMO plans, please review the plan of care and approve it. It will need to be FAXED BACK to us at [phone] for Medicare purposes. For Medicare only, by signing this I certify the plan of care. Please let me know if there are questions or concerns regarding this plan of care. Physician Signature: Date:
--- NOTE | 2024-08-07 09:49 | HP.PTREVAL ---
Re-Evaluation Intro: Dr. Ramana Zamora MD, It has been my pleasure to treat HARJIT CALVILLO over the last 14 visits for R rotator cuff repair 06/07/24. Please see the progress note below for an update on the physical therapy plan of care! Subjective Subjective: I am ready to be done Objective Objective/Function: R shoulder pain 0/10 R shoulder ROM: flex= 125, abd= 95, ER= 50, IR minimally limited R shoulder MMT: flex= 7, abd= 17, ER= 17, IR= 17 #F Pt is I with HEP Plan Plan Plan: Follow up or discharge in one month. Pt to continue with ex's I. Balance/Gait/Functional tests Balance/Special Test Scores Quick DASH Score: 9.0900 Goals Goals Goal 1:: Increase R shoulder ROM to equal L shoulder ROM to aid with IADL's Goal Time Frame: 6-8 Weeks Goal 2:: Increase R shoulder strength to 90% L shoulder strength to aid with IADL's Goal Time Frame: 6-8 Weeks Goal 3:: I with HEP Goal Time Frame: 6-8 Weeks Anticipated Interventions Anticipated Interventions Patient/Client Instruction: Educate patient on: Condition and Plan of Care For the Purpose of:: To improve self management Therapeutic Exercise to Include: Strength training, Flexibilty training, Passive ROM, Active ROM and Scapular Strength/Stabilization For the Purpose of:: To decrease pain, To increase ROM and To improve muscle performance and motor function Cryotherapy (ice pack, ice massage): Yes For the Purpose of:: To decrease pain Re-Evaluation Ending Re-evaluation ending: Please do not hesitate to contact me at [phone] by phone or if you have questions or concerns regarding this new plan of care! Sincerely, Sudhakar Beckford, PT, ATC
--- NOTE | 2024-11-12 16:13 | HP.PT.NRP ---
Patient Information Patient Information: HARJIT CALVILLO was seen in my office for initial evaluation on 06/24/24. The following Plan of Care was established for this patient: POC Established Initial Frequency: 2-3x /Week Initial Duration: 6-8 weeks Anticipated Interventions Patient/Client Instruction: Educate patient on: Condition and Plan of Care For the Purpose of:: To improve self management Therapeutic Exercise to Include: Strength training, Flexibilty training, Passive ROM, Active ROM and Scapular Strength/Stabilization For the Purpose of:: To decrease pain, To increase ROM and To improve muscle performance and motor function Cryotherapy (ice pack, ice massage): Yes For the Purpose of:: To decrease pain Last Seen Last Seen: This patient was last seen in our office . Pertinent comments regarding their Physical therapy will appear below: Pt has not returned to [facility] is greater than 30 days and is discharged at this time. At this point I will be discontinuing this patient from physical therapy. I would be happy to see this patient again in the future if found appropriate by the physician. Thank you! Sudhakar Beckford, PT, ATC Balance/Gait/Functional tests Balance/Special Test Scores Quick DASH Score: 9.0900
== END 2024-08-07 19:00 | disposition home or self-care (01) ==
LOC: PT 09:00
PROVIDERS: PCP Family Medicine Geriatric Medicine; Referring Provider Orthopaedic Surgery Sports Medicine; Visit Provider Orthopaedic Surgery Sports Medicine
DX: M75.101 Unspecified rotator cuff tear or rupture of right shoulder, not specified as traumatic (principal)
CPT/HCPCS: 97110; 97140; 97161; 97530

== ENCOUNTER → 2025-01-06 | Outpatient (CLI) | payer OTHER, SELFPAY ==
--- OUTSIDE RECORDS SUMMARY | 2025-01-06 07:10 | XMS RPT_ITS | CCD ---
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 Roney Das Primary Care Provider [phone] Pippa, Dr. Sim Referring Provider Dr. Farhan Lovell Attending Provider [phone] Dr. Ubaldo Copeland Attending Provider [phone] FLORES Ott Attending Provider Dr. Roney Das Primary Care Provider Dr. Roney Das Referring Provider Dr. Farhan Lovell Attending Provider [phone] Dr. Ubaldo Copeland Attending Provider [phone] FLORES Ott Attending Provider Edda Flowers Attending Provider Unavailable Dr. Charles Pineda Attending Provider [phone] Charles Pineda Other Provider Dr. Roney Das Primary Care Provider [phone] Dr. Roney Das Referring Provider MD Ramana Zamora Attending Provider [phone] Dr. Elodia Bowser Attending Provider [phone] Dr. Adriano Michele Referring Provider MD Ramana Zamora Referring Provider MD Ramaan Zamora Other Provider Pippa, Dr. Sim Primary Care Provider [phone] Pippa, Dr. Sim Referring Provider MD Ramana Zamora Attending Provider [phone] Pippa ALBARADO, Dr. Sim Referring Provider Ramana Zamora MD Attending Provider [phone] Pippa ALBARADO, Dr. Sim Primary Care Provider Noah ALBARADO, Ramana Referring Provider [phone] Pippa, Roney Referring Unavailable Mollison, Ramana Attending Unavailable Pippa, [place] [facility] Unavailable Mollison, Ramana Attending Unavailable Mollison, Ramana Referring Unavailable Mollison, Ramana Attending Unavailable Pippa, [place] [facility] Unavailable Mollison, Ramana Referring Unavailable Pippa, [place] [facility] Unavailable Mollison, Ramana Attending Unavailable Gulf, Lizzy L Attending Unavailable VenkatLizzy L Referring Unavailable Pippa, [place] [facility] Unavailable Terrance Morse Attending Unavailable Mollison, Ramana Attending Unavailable Dinorah, [place] Attending Unavailable Pippa, [place] [facility] Unavailable Mollison, Ramana Referring Unavailable Mollison, Ramana Attending Unavailable Pippa, [place] [facility] Unavailable Mollison, Ramana Referring Unavailable Mollison, Ramana Consulting Unavailable Pippa, [place] [facility] Unavailable Pippa, Roney Referring Unavailable Mollison, Ramana Attending Unavailable Dinorah, [place] Attending Unavailable Pippa, [place] [facility] Unavailable Mollison, Ramana Attending Unavailable Pippa, Roney Referring Unavailable Pippa, [place] [facility] Unavailable Pippa, Roney Referring Unavailable Pippa, [place] [facility] Unavailable Naveenison, Ramana Attending Unavailable Allergies Allergy Classification Reported Allergen(s) Allergy Type Date of Onset Reaction(s) Facility (5 sources) orphenadrine drug allergy 7 [facility] Work Phone: (14 sources) Orphenadrine; Translations: [orphenadrine citrate] Drug Allergy 2 Hives, restricted airway [facility] (12 sources) tamsulosin Drug Allergy 2 PT UNSURE OF REACTION, Urinary retention [facility] (1 source) tamsulosin Drug Allergy [facility] Repository Medications Current Medications Medication Drug Class(es) Dates Sig (Normalized) Sig (Original) acetaminophen 325 mg / HYDROcodone bitartrate 5 mg oral tablet (1 source) Opioid Agonist Start: 11-01-2021 take 1 tablet by mouth every six hours as needed Hydrocodone-Acet aminophen Active 1 TABLET PO EVERY 6 HOURS NEEDED 10 November 01, 2021 3:20pm amLODIPine 5 mg oral tablet (14 sources) Dihydropyridine Calcium Channel Nitza Start: 05-27-2024 take 1 tablet by mouth at bedtime Amlodipine 5 mg tablet Active 5 mg PO AT BEDTIME May 27, 2024 1:00am Start: 12-08-2020 End: 05-27-2024 take 5 mg by mouth at bedtime Amlodipine 10 mg Tablet Discontinued 5 mg PO AT BEDTIME December 08, 2020 12:00am May 27, 2024 3:01pm Start: 12-08-2020 take 5 mg by mouth at bedtime Amlodipine Active 5 MG PO AT BEDTIME December 08, 2020 12:00am ascorbic acid 500 mg oral tablet (5 sources) Vitamin C Start: 05-29-2023 take 1 tablet by mouth once daily as needed Ascorbic Acid (Vitamin C) (C-500) 500 mg tablet Active 500 mg PO DAILY as needed for WINTER MONTHS ONLY May 29, 2023 1:00am Start: 06-22-2022 take 1 tablet by mouth once da yury Ascorbic Acid (Vitamin C) (Vitamin C) 500 mg Tablet Active 500 MG PO DAILY June 22, 2022 12:00am cetirizine hydrochloride 10 mg oral capsule (10 sources) Histamine-1 Receptor Antagonist Start: 04-03-2024 take 1 capsule by mouth once daily Cetirizine (All Day Allergy (Cetirizine)) 10 mg capsule Active 10 mg PO DAILY April 03, 2024 12:00am Start: 08-31-2016 ZYRTEC ALLERGY 10 MG CAPS daily CETIRIZINE HCL [id number] Joseluis Leigh Start: 01-02-2015 take 1 tablet by tobias th once daily Cetirizine Hcl (Zyrtec) 10 MG tablet Active 10 MG PO DAILY January 01, 2015 11:00pm gabapentin 300 mg oral capsule (20 sources) Anti-epileptic Agent Start: 11-01-2021 take 1 capsule by mouth four times daily Gabapentin 300 mg capsule Active 300 mg PO 4 TIMES DAILY November 01, 2021 2:04pm Start: 12-26-2020 End: 11-01-2021 take 1 capsule by mouth twice daily Gabapentin 300 mg capsule Discontinued 300 mg PO TWICE A DAY 8 December 26, 2020 12:00am November 01, 2021 2:04pm lisinopril 20 mg oral tablet (19 sources) Angiotensin Converting Enzyme Inhibitor Start: 05-27-2024 take 1 tablet by mouth once daily Lisinopril 20 mg tablet Active 20 mg PO DAILY May 27, 2024 1:00am Start: 08-31-2016 LISINOPRIL 20 MG TABS daily LISINOPRIL [id number] Joseluis Morocho Reese Start: 01-02-2015 take 10 mg by mouth once daily Lisinopril Active 10 MG PO DAILY January 02, 2015 7:03am Start: 01-02-2015 End: 05-27-2024 take 2 tablets by mouth once daily Lisinopril 10 MG tablet Discontinued 20 mg PO DAILY January 02, 2015 12:00am May 27, 2024 3:02pm Start: 01-02-2015 take 20 mg by mouth once daily Lisinopril Active 20 MG PO DAILY January 02, 2015 12:00am melatonin 5 mg oral tablet (4 sources) Start: 12-08-2020 take 10 mg by mouth at bedtime Melatonin Active 10 MG PO AT BEDTIME December 07, 2020 11:00pm Multivitamin With Minerals (11 sources) Start: 12-08-2020 take 1 tablet by mouth once daily Multivitamin With Minerals Active 1 TABLET PO DAILY December 07, 2020 11:00pm Start: 12-08-2020 take 1 tablet by tobias th once daily Multivitamin With Minerals Active 1 TABLET PO DAILY December 08, 2020 12:00am Multivitamin With Minerals (All Purpose Multivitamin-Min) Tablet (1 source) Start: 12-08-2020 take 1 tablet by mouth once daily Multivitamin With Minerals (All Purpose Multivitamin-Min) Tablet Active 1 TABLET PO DAILY December 08, 2020 7:43am Multivitamin With Minerals Tablet (1 source) Start: 12-08-2020 Multivitamin W ith Minerals Tablet Active 1 {tbl} PO DAILY December 08, 2020 12:00am psyllium 400 mg oral capsule (1 source) Start: 04-03-2024 Psyllium Husk (Daily Fiber) 0.4 gram capsule Active 0.8 g PO daily April 03, 2024 12:00am [place] (5 sources) Start: 05-10-2023 take 1 capsule by mouth twice daily [place] 160 mg capsule Active 320 mg PO TWICE A DAY May 10, 2023 1:00am give with meal/snack Start: 05-10-2023 take 160 mg by mouth twice daily [place] Active 160 MG PO TWICE A DAY May 10, 2023 1:00am give with meal/snack Start: 05-10-2023 take 160 mg by mouth twice daily [place] Active 160 MG PO TWICE A DAY May 10, 2023 12:00am give with meal/snack tiZANidine 4 mg oral capsule (20 sources) Central alpha-2 Adrenergic Agonist Start: 11-01-2021 take 2 tablets by mouth once daily at bedtime Tizanidine (Zanaflex) 4 mg capsule Active 4 mg PO TWICE A DAY November 01, 2021 2:04pm 1 TAB IN A.M.; 2 TAB QHS Start: 12-26-2020 End: 11-01-2021 take 1 capsule by mouth at bedtime Tizanidine (Zanaflex) 4 mg capsule Discontinued 4 mg PO AT BEDTIME December 26, 2020 12:00am November 01, 2021 2:04pm Start: 08-31-2016 TIZANIDINE HCL 4 MG CAPS every night TIZANIDINE HCL [id number] Joseluis Leigh Zinc (5 sources) Start: 05-29-2023 take 1 capsule by [facility] once daily as needed Zinc 50 mg capsule Active 50 mg PO DAILY as needed for WINTER MONTHS May 29, 2023 1:00am Start: 05-29-2023 take 50 mg by mouth once daily Zinc Active 50 MG PO DAILY May 29, 2023 1:00am Start: 05-29-2023 take 50 mg by mouth once daily Zinc Active 50 MG PO DAILY May 29, 2023 12:00am Start: 06-22-2022 take 50 mg by mouth once daily Zinc Active 50 MG PO DAILY June 22, 2022 12:00am Completed/Discontinued Medications Medication Drug Class(es) Dates Sig (Normalized) Sig (Original) 8 hr acetaminophen 650 mg extended release oral tablet (12 sources) Start: 11-10-2021 End: 02-23-2022 Acetaminophen 650 mg Tablet Extended Release Discontinued 1000 mg PO Q12H as needed for Pain November 10, 2021 12:00am February 23, 2022 2:33pm Start: 11-10-2021 End: 02-23-2022 take 1000 mg by mouth every twelve hours Acetaminophen Discontinued 1000 MG PO Q12H November 10, 2021 12:00am February 23, 2022 2:33pm acetaminophen 325 mg / oxyCODONE hydrochloride 5 mg oral tablet (20 sources) Opioid Agonist Start: 06-07-2024 End: 06-24-2024 Oxycodone-Acetaminophen (Endocet) 5-325 mg tablet Discontinued 1 {tbl} PO Q4H as needed for pain 15 11June 07, 2024 June 24, 2024 11:08am Start: 06-27-2023 End: 07-02-2023 Oxycodone-Acetaminophen (End ocet) 5-325 mg tablet Discontinued 1 {tbl} PO EVERY 4-6 HOURS as needed for pain 05 11June 27, 2023 July 01, 2023 1:00am July 02, 2023 1:05am Start: 06-14-2023 End: 06-27-2023 Oxycodone-Acetaminophen (End ocet) 5-325 mg tablet Discontinued 1 {tbl} PO Q4H as needed for pain 30 June 27, 2023 June 27, 2023 3:26pm Start: 11-12-2021 End: 02-23-2022 Oxycodone-Acetaminophen 5-32 5 mg tablet Discontinued 1 {tbl} PO EVERY 6 HOURS as needed for pain 30 12November 12, 2021 February 23, 2022 2:33pm Start: 11-12-2021 End: 02-23-2022 take 1 tablet by mouth every six hours Oxycodone-Acetaminophen Discontinued 1 TABLET PO EVERY 6 HOURS 30 12November 12, 2021 February 23, 2022 2:33pm Start: 09-29-2015 End: 12-08-2020 Oxycodone-Acetaminophen 1 TA BLET tablet Discontinued 1 - 2 {tbl} PO EVERY 4 HOURS NEEDED as needed for Pain September 29, 2015 12:00am December 08, 2020 7:44am Start: 09-29-2015 End: 12-08-2020 take 1 tablet by mouth every four hours as needed Oxycodone-Acetaminophen Discontinued 1 - 2 TABLET PO EVERY 4 HOURS NEEDED September 29, 2015 12:00am December 08, 2020 7:44am Start: 08-08-2014 End: 01-02-2015 Oxycodone-Acetaminophen 1 TA BLET tablet Discontinued 1 - 2 {tbl} PO EVERY 4 HOURS NEEDED as needed for Pain August 08, 2014 1:00am January 02, 2015 7:04am Start: 08-08-2014 End: 01-02-2015 take 1 tablet by mouth every four hours as needed Oxycodone-Acetaminophen Discontinued 1 - 2 TABLET PO EVERY 4 HOURS NEEDED August 08, 2014 1:00am January 02, 2015 7:04am amoxicillin 500 mg oral capsule (11 sources) Penicillin-class Antibacterial Start: 03-16-2022 End: 03-26-2022 take 2 capsules by mouth twice daily Amoxicillin 500 mg capsule Discontinued 1000 mg PO TWICE A DAY 40 March 16, 2022 12:00am March 25, 2022 12:00am March 26, 2022 12:08am Start: 03-16-2022 End: 03-26-2022 take 1000 mg by mouth twice daily Amoxicillin Discontinued 1000 MG PO TWICE A DAY 40 March 16, 2022 12:00am March 26, 2022 12:08am cobamamide 0.1 mg / vitamin b12 5 mg sublingual tablet (4 sources) Vitamin B12 Start: 05-29-2023 End: 04-03-2024 Cyanocobalamin-Cobamamide (B 12) 5,000-100 mcg lozenge Discontinued 1 NMA SL DAILY May 29, 2023 1:00am April 03, 2024 9:07am Start: 05-29-2023 Cyanocobalamin -Cobamamide (B12) 5,000-100 mcg lozenge Active 1 LOZENGE SL DAILY May 29, 2023 1:00am diclofenac 18 mg oral capsule (13 sources) Nonsteroidal Anti-inflammatory Drug Start: 09-25-2015 End: 12-08-2020 take 1 capsule by mouth three times daily Diclofenac Submicronized (Zorvolex) 18 MG capsule Discontinued 18 mg PO THREE TIMES A DAY September 25, 2015 12:00am December 08, 2020 7:43am docusate sodium 50 mg oral capsule (10 sources) Start: 03-29-2022 End: 04-03-2024 take 1 capsule by mouth once daily Docusate Sodium 50 mg capsule Discontinued 50 mg PO DAILY March 29, 2022 12:00am April 03, 2024 9:07am FLUTICASONE PROPIONATE SUSP (5 sources) Corticosteroid Start: 08-31-2016 take 1 spray(s) nasal route twice daily FLUTICASONE PROPIONATE SUSP one spray each nostril twice a day FLUTICASONE PROPIONATE SUSP [id number] Joseluis Leigh ibuprofen 800 mg oral tablet (5 sources) Nonsteroidal Anti-inflammatory Drug Start: 08-31-2016 IBUPROFEN 800 MG TABS three times a day IBUPROFEN [id number] Joseluis Leigh rOPINIRole 0.25 mg oral tablet (13 sources) Nonergot Dopamine Agonist Start: 08-01-2014 End: 12-08-2020 Ropinirole (Requip) 0.25 MG tablet Discontinued 0.5 {tbl} PO AT BEDTIME August 01, 2014 1:00am December 08, 2020 7:44am Start: 08-01-2014 End: 12-08-2020 take 0.5 tablet by mouth at bedtime Ropinirole (Requip) 0.25 MG tablet Discontinued 0.5 TABLET PO AT BEDTIME August 01, 2014 1:00am December 08, 2020 7:44am traMADol hydrochloride 50 mg oral tablet (20 sources) Opioid Agonist Start: 11-01-2021 End: 04-03-2024 take 1 tablet by mouth three times daily Tramadol 50 mg tablet Discontinued 50 mg PO THREE TIMES A DAY November 01, 2021 2:04pm April 03, 2024 9:06am Start: 12-26-2020 End: 11-01-2021 take 1 tablet by mouth twice daily as needed for pain Tramadol 50 mg tablet Discontinued 50 mg PO TWICE A DAY as needed for pain December 26, 2020 12:00am November 01, 2021 2:04pm Start: 08-31-2016 ULTRAM 50 MG T ABS three times a day TRAMADOL HCL [id number] Joseluis Leigh Problems Active Problems Problem Classification Problem Date Documented Da te Episodic/Chronic Calculus of urinary tract (20 sources) Ureteric stone; Translations: [Calculus of ureter] 11-12-2021 Episodic E Codes: Fall (9 sources) Fall on same level from slipping; Translations: [Fall on same level from slipping, tripping and stumbling without subsequent striking against object, initial encounter] 11-21-2022 Episodic Other connective tissue disease (5 sources) Tear of left rotator cuff; Translations: [Unspecified rotator cuff tear or rupture of left shoulder, not specified as traumatic] 05-10-2023 Episodic Other connective tissue disease (10 sources) Unspecified rotator cuff tear or rupture of left shoulder, not specified as traumatic; Translations: [Rotator cuff (capsule) sprain] 05-10-2023 Episodic Other connective tissue disease (3 sources) Tear of right rotator cuff; Translations: [Unspecified rotator cuff tear or rupture of right shoulder, not specified as traumatic] 02-29-2024 Episodic Other diseases of kidney and ureters (13 sources) Hydronephrosis; Translations: [Unspecified hydronephrosis] 11-09-2021 Episodic Other lower respiratory disease (9 sources) Cough; Translations: [Cough] 06-28-2022 Episodic Other non-traumatic joint disorders (14 sources) Pain in left shoulder; Translations: [Left shoulder pain] 05-10-2023 Episodic Other screening for suspected conditions (not mental disorders or infectious disease) (11 sources) Patient encounter status; Translations: [Encounter for screening for malignant neoplasm of colon] Episodic Otitis media and related conditions (13 sources) Acute left otitis media; Translations: [Otitis media, unspecified, left ear] Episodic Spondylosis; intervertebral disc disorders; other back problems (20 sources) Sciatica; Translations: [Sciatica, unspecified side] Onset: 01-03-2025 Episodic Sprains and strains (20 sources) Strain of muscle(s) and tendon(s) of the rotator cuff of right shoulder, initial encounter; Translations: [Partial thickness rotator cuff tear] Onset: 08-31-2016 09-08-2016 Episodic Superficial injury; contusion (9 sources) Contusion of shoulder region; Translations: [Contusion of left shoulder, initial encounter] 11-21-2022 Episodic Past or Other Problems Problem Classification Problem Date Documented Da te Episodic/Chronic Other connective tissue disease (8 sources) Rotator cuff syndrome; Translations: [Biceps tendinitis] Onset: 10-27-2016 11-28-2016 Episodic Other connective tissue disease (1 source) Biceps tendinitis; Translations: [Bicipital tendinitis, right shoulder] Onset: 10-27-2016 11-03-2016 Episodic Other connective tissue disease (1 source) Disorder of rotator cuff; Translations: [Unspecified rotator cuff tear or rupture of right shoulder, not specified as traumatic] Onset: 10-27-2016 10-27-2016 Episodic Other connective tissue disease (1 source) Unspecified rotator cuff tear or rupture of right shoulder, not specified as traumatic; Translations: [Unspecified rotator cuff tear or rupture of right shoulder, not specified as traumatic] Onset: 06-28-2024 Episodic Other non-traumatic joint disorders (9 sources) Impingement syndrome of shoulder region; Translations: [Shoulder pain] Onset: 08-31-2016 09-08-2016 Episodic Other non-traumatic joint disorders (1 source) Shoulder pain; Translations: [Pain in right shoulder] Onset: 08-31-2016 08-31-2016 Episodic Other non-traumatic joint disorders (1 source) Pain in right shoulder; Translations: [Pain in right shoulder] Onset: 03-18-2024 Episodic Results Test Name Value Interpretation Reference Range Facility Orthopedic Visit Reporton Orthopedic Visit Report [facility] [address] [place] [address] OFFICE VISIT Date of Service: 08/22/24 MR#: [id number] Acct: [id number] Name: HARJIT CALVILLO Rep #: [id number] : 1960 Provider: Dr. Ramana ritter MD Age/Sex: 64/M Location: [facility] [place].ANJELICA Status: Signed Intake Vital Signs 06/07/24 05:54 08/22/24 09:20 Height 5 ft 10 in 5 ft 10 in Weight: 218 lb 8 oz BMI 31.3 Intake Visit Reasons: RIGHT SHOULDER Chief Complaint: Post op Accompanied by: Self Is patient in pain?: No Allergies orphenadrine citrate (From Norflex) Allergy (Severe, Verified 08/22/24 09:22) Hives, restricted airway tamsulosin (From Flomax) Adverse Reaction (Verified 08/22/24 09:22) Urinary retention Medications ???Medication ???Instructions ???Recorded ???Confirmed ???Type multivitamin with minerals 1 tab PO DAILY 12/08/20 08/22/24 H istory gabapentin 300 mg capsule 300 mg PO 4X/DAY 11/01/21 08/22/24 History tizanidine 4 mg capsule (Zanaflex) 4 mg PO BID 11/01/21 08/22/24 Hi story saw palmetto 160 mg capsule 320 mg PO BID 05/10/23 08/22/24 Hi story ascorbic acid (vitamin C) 500 mg 500 mg PO DAILY PRN winter05/29/23 08/22/24 History tablet (C-500) ONLY zinc 50 mg capsule 50 mg PO DAILY PRN winter07/30/22 08/22/24 History cetirizine 10 mg capsule (All Day 10 mg PO DAILY 04/03/24 08/22/24 History Allergy (cetirizine)) psyllium husk 0.4 gram capsule 0.8 g PO QDAY 04/03/24 08/22/24 Hi story (Daily Fiber) amlodipine 5 mg tablet 5 mg PO QHS 05/27/24 08/22/24 Hist ory lisinopril 20 mg tablet 20 mg PO DAILY 05/27/24 08/22/24 H istory Have you fallen in the past year?: No PFSH Medical History Right rotator cuff tear PONV (postoperative nausea and vomiting) History of diverticulitis Neuropathy Sciatic leg pain Partial tear of left subscapularis tendon Left rotator cuff tear Left shoulder pain History of epidural anesthesia Wears glasses Cancer Alcohol use Hematoma Arthritis Restless legs Back pain Former smoker CPAP (continuous positive airway pressure) dependence Leg cramps History of edema History of stress test Scoliosis deformity of spine Hypertension Surgical History History of arthroscopy of shoulder Hx of cystoscopy History of colonoscopy History of lithotripsy Hx of toe surgery Hx of toe surgery Hx of excision of mass History of spinal fusion for scoliosis Hx of cholecystectomy Family History Mother Heart disease Diabetes type 2, uncontrolled S/P CABG x 4 Glaucoma Father Stage 4 malignant neoplasm of lung Social History household members: spouse Smoking Status: Former smoker alcohol intake: never HPI RIGHT SHOULDER Details: This documentation accurately reflects the service provided and the decisions made by me, Dr. Ramana Zamora MD 08/22/24 0920. Part of today???s visit was documented by [ ], acting as scribe. HARJIT CALVILLO is a 64 year old M here today for 3 months following up right shoulder rotator cuff repair and biceps tenodesis. The patient is doing well working hard with physical therapy no stiffness no pain has been gradually working up in terms of strengthening up to now 5 pounds. Once returned back to work on light duties only at [employer] Exam General General: Yes no acute distress Neurologic: Yes alert and Yes oriented x3 Psychologic: Yes reasonable and appropriate Right Shoulder Skin/Wound: Yes CDI, Yes healed, No ecchymosis, No erythema and No swelling Testing: Negative Hawkin's, Neer's or Speed's SHOULDER: nvi mru and ain/pin, ax nerves. good radial pulse. Active and passive forward elevation about 175 degrees. External rotation 50 degrees. strength 4++ in FE. Coding Level of Care Code Global Post Op Diagnoses Right rotator cuff tear M75.101 Partial tear of left subscapularis tendon S46.812A Assessment and Plan Assessment and Plan (1) Right rotator cuff tear: Status: Acute Plan: HARJIT CALVILLO is a 64 year old M here today for 3 months following up right shoulder rotator cuff repair and biceps tenodesis. Patient may return back to work on light duties no lifting greater than 5 pounds gradually increase the strengthening over the next 3 months and follow-up at that point for reassessment. (2) Partial tear of left subscapularis tendon: Status: Acute Clinical Quality Measures Falls Risk Screening/Assistive Devices Have you fallen in the past year?: No 08/22/24 0935 Date __ (more content not included)... Normal [facility] Re-Evaluation - PT (1)on Re-Evaluation - PT (1) [facility] Physical [facility] [address] [place] [address] / REEVALUATION / MEDICARE RECERTIFICATION PHYSICAL THERAPY MR#: [id number] Acct: [id number] Name: HARJIT CALVILLO Rep #: [id number] : 1960 64 From: Suzanne Beckford PT, ATC Referring Dr.: Dr. Ramana Zamora MD Status:REG R Insurance: [facility] [id number] [facility] [employer] Re-Evaluation Intro: Dr. Ramana Zamora MD, It has been my pleasure to treat HARJIT CALVILLO over the last 14 visits for R rotator cuff repair 06/07/24. Please see the progress note below for an update on the physical therapy plan of care! Subjective Subjective: I am ready to be done Objective Objective/Function: R shoulder pain 0/10 R shoulder ROM: flex= 125, abd= 95, ER= 50, IR minimally limited R shoulder MMT: flex= 7, abd= 17, ER= 17, IR= 17 #F Pt is I with HEP Plan Plan Plan: Follow up or discharge in one month. Pt to continue with ex's I. Balance/Gait/Functional tests Balance/Special Test Scores Quick DASH Score: 9.0900 Goals Goals Goal 1:: Increase R shoulder ROM to equal L shoulder ROM to aid with IADL's Goal Time Frame: 6-8 Weeks Goal 2:: Increase R shoulder strength to 90% L shoulder strength to aid with IADL's Goal Time Frame: 6-8 Weeks Goal 3:: I with HEP Goal Time Frame: 6-8 Weeks Anticipated Interventions Anticipated Interventions Patient/Client Instruction: Educate patient on: Condition and Plan of Care For the Purpose of:: To improve self management Therapeutic Exercise to Include: Strength training, Flexibilty training, Passive ROM, Active ROM and Scapular Strength/Stabilization For the Purpose of:: To decrease pain, To increase ROM and To improve muscle performance and motor function Cryotherapy (ice pack, ice massage): Yes For the Purpose of:: To decrease pain Re-Evaluation Ending Re-evaluation ending: Please do not hesitate to contact me at [phone] by phone or if you have questions or concerns regarding this new plan of care! Sincerely, Suzanne Beckford, PT, ATC 08/07/24 0949 CC: Dr. Roney Das MD; Dr. Ramana Zamora MD [facility] Signed For Medicare only, by signing this I certify the plan of care. Physicians Signature Date Normal [facility] Orthopedic Visit Reporton Orthopedic Visit Report [facility] 77 [place] [address] OFFICE VISIT Date of Service: 07/22/24 MR#: [id number] Acct: [id number] Name: HARJIT CALVILLO Rep #: [id number] : 1960 Provider: Dr. Ramana ritter MD Age/Sex: 64/M Location: [facility] [place].ANJELICA Status: Signed Intake Vital Signs 06/07/24 05:54 Height 5 ft 10 in Intake Visit Reasons: RIGHT SHOULDER Chief Complaint: right shoulder Is patient in pain?: No Allergies orphenadrine citrate (From Norflex) Allergy (Severe, Verified 07/22/24 09:51) Hives, restricted airway tamsulosin (From Flomax) Adverse Reaction (Verified 07/22/24 09:51) Urinary retention Medications ???Medication ???Instructions ???Recorded ???Confirmed ???Type multivitamin with minerals 1 tab PO DAILY 12/08/20 07/22/24 H istory gabapentin 300 mg capsule 300 mg PO 4X/DAY 11/01/21 07/22/24 History tizanidine 4 mg capsule (Zanaflex) 4 mg PO BID 11/01/21 07/22/24 Hi story saw palmetto 160 mg capsule 320 mg PO BID 05/10/23 07/22/24 Hi story ascorbic acid (vitamin C) 500 mg 500 mg PO DAILY PRN winter05/29/23 07/22/24 History tablet (C-500) ONLY zinc 50 mg capsule 50 mg PO DAILY PRN winter07/30/22 07/22/24 History cetirizine 10 mg capsule (All Day 10 mg PO DAILY 04/03/24 07/22/24 History Allergy (cetirizine)) psyllium husk 0.4 gram capsule 0.8 g PO QDAY 04/03/24 07/22/24 Hi story (Daily Fiber) amlodipine 5 mg tablet 5 mg PO QHS 05/27/24 07/22/24 Hist ory lisinopril 20 mg tablet 20 mg PO DAILY 05/27/24 07/22/24 H istory [facility] Medical History Right rotator cuff tear PONV (postoperative nausea and vomiting) History of diverticulitis Neuropathy Sciatic leg pain Partial tear of left subscapularis tendon Left rotator cuff tear Left shoulder pain History of epidural anesthesia Wears glasses Cancer Alcohol use Hematoma Arthritis Restless legs Back pain Former smoker CPAP (continuous positive airway pressure) dependence Leg cramps History of edema History of stress test Scoliosis deformity of spine Hypertension Surgical History History of arthroscopy of shoulder Hx of cystoscopy History of colonoscopy History of lithotripsy Hx of toe surgery Hx of toe surgery Hx of excision of mass History of spinal fusion for scoliosis Hx of cholecystectomy Family History Mother Heart disease Diabetes type 2, uncontrolled S/P CABG x 4 Glaucoma Father Stage 4 malignant neoplasm of lung Social History household members: spouse Smoking Status: Former smoker alcohol intake: never HPI RIGHT SHOULDER Details: This documentation accurately reflects the service provided and the decisions made by me, Dr. Ramana Zamora MD 07/22/24 0809. Part of today???s visit was documented by [ ], acting as scribe. HARJIT CALVILLO is a 64 year old M here today for 6 weeks Right shoulder arthroscopy, subacromial decompression, rotator cuff repair of supraspinatus and subscapularis as well as separate open incision biceps tenodesis. Doing well. Some mild stiffness no pain. Able to get up to 130 degrees of forward elevation with physical therapy. Coding Level of Care Code Global Post Op Diagnoses Partial tear of left subscapularis tendon S46.812A Right rotator cuff tear M75.101 Assessment and Plan Assessment and Plan (1) Partial tear of left subscapularis tendon: Status: Acute Plan: HARJIT CALVILLO is a 64 year old M here today for 6 weeks Right shoulder arthroscopy, subacromial decompression, rotator cuff repair of supraspinatus and subscapularis as well as separate open incision biceps tenodesis. Patient doing well overall has some mild stiffness we will continue to work on that and start some light strengthening follow-up in the office in 2 months time the patient understands no further questions or concerns. (2) Right rotator cuff tear: Status: Acute Ortho Exam General General: Yes no acute distress Neurologic: Yes alert and Yes oriented x3 Psychologic: Yes reasonable and appropriate Right Shoulder Skin/Wound: Yes CDI, Yes healed, No ecchymosis, No erythema and No swelling Testing: Negative Hawkin's, Neer's or Speed's SHOULDER: nvi mru and ain/pin, ax nerves. good radial pulse. Active and passive forward elevation about 95 degrees. External rotation 30 degrees. 07/22/24 1004 Date Ramana Zamora MD Cosigner Signature: Date (if applicable) CC: [facility] Inital Evaluation (1) - PTon 06-24-2024 Inital Evaluation (1) - PT [facility] Physical Therapy [facility] [address] [place] [address]. [address] [place] [address] / REHABILITATION SERVICES INITIAL EVALUATION MR#: [id number] Acct: [id number] Name: HARJIT CALVILLO Rep #: [id number] : 1960 64 From: Suzanne Beckford PT, ATC Referring Dr.: Dr. Ramana Zamora MD Status: R EG RCR Insurance: [facility] [id number] [place] PAY INSURANCE Patient's Visit Information Visit Information Visit Information: HARJIT CALVILLO is a 64 year old M referred to Physical Therapy by Dr. Ramana Zamora MD with a diagnosis of R rotator cuff repair 06/07/24. Date of Evaluation: 06/24/24 Physical Therapist: Suzanne Beckford, PT, ATC Visit Plan Frequency: 2-3x /Week Duration: 6-8 weeks Plan: R shoulder PROM x 2-4 weeks progressing to AROM at that time. Begin strengthening when ordered per surgeon consisting of rotator cuff strengthening and scap stab ex's. Subjective Subjective: DOS: 06/07/24. Pt had a R rotator cuff repair at that time. Pt reports he is feeling pretty good at this time. Pt notes no PMHx of R shoulder complications in the past. Pt reports he had a L rotator cuff repair one year ago and it is doing well. No tingling or numbness in R UE at this time. No sleep difficulty secondary to pain. Pt is R hand dominant. 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 Pt reports he is supposed to continue wearing his sling through today, but then can go without his sling starting tomorrow. Pt reports he has not been performing any HEP at this time, but plans on starting them tomorrow. 0/10 pain at rest. Pain R shoulder: Pain Intensity (Out of 10): 0 Objective Objective: Observation: Incisions are healing well at this time. No signs of infection Neuro: B UE sensation is WNL to light touch. ROM: L shoulder AROM flex= 160, abd= 160, ER= 70, IR= WNL; R shoulder PROM flex and scap= 80 degrees MMT: L shoulder flex= 14, abd= 21, ER= 21, IR= 26; R shoulder not tested Balance/Special Test Scores Quick DASH Score: 50.0000 Goals Goal 1:: Increase R shoulder ROM to equal L shoulder ROM to aid with IADL's Goal Time Frame: 6-8 Weeks Goal 2:: Increase R shoulder strength to 90% L shoulder strength to aid with IADL's Goal Time Frame: 6-8 Weeks Goal 3:: I with HEP Goal Time Frame: 6-8 Weeks Rehabilitation Potential Physical Therapy Diagnosis: Pt has R shoulder pain, weakness, and limited ROM secondary to R shoulder rotator cuff repair Rehabilitation Potential: Good Anticipated Interventions Patient/Client Instruction: Educate patient on: Condition and Plan of Care For the Purpose of:: To improve self management Therapeutic Exercise to Include: Strength training, Flexibilty training, Passive ROM, Active ROM and Scapular Strength/Stabilization For the Purpose of:: To decrease pain, To increase ROM and To improve muscle performance and motor function Cryotherapy (ice pack, ice massage): Yes For the Purpose of:: To decrease pain Text: Thank you for the opportunity to evaluate your patient. For Medicare and Medicare HMO plans, please review the plan of care and approve it. It will need to be FAXED BACK to us at [phone] for Medicare purposes. For Medicare only, by signing this I certify the plan of care. Please let me know if there are questions or concerns regarding this plan of care. Physician Signature: Date: 06/24/24 1232 CC: Dr. Roney Das MD; Dr. Ramana Zamora MD [facility] Signed Normal [facility] Inital Evaluation (1) - PT [facility] Physical Therapy [facility] [address] [place] [address] [address] [place] [address] / REHABILITATION SERVICES INITIAL EVALUATION MR#: [id number] Acct: [id number] Name: HARJIT CALVILLO Rep #: [id number] : 1960 64 From: Suzanne Beckford PT, ATC Referring Dr.: Dr. Ramana Zamora MD Status: R EG RCR Insurance: [facility] [id number] [place] PAY INSURANCE Patient's Visit Information Visit Information Visit Information: HARJIT CALVILLO is a 64 year old M referred to Physical Therapy by Dr. Ramana Zamora MD with a diagnosis of R rotator cuff repair 06/07/24. Date of Evaluation: 06/24/24 Physical Therapist: Suzanne Beckford, PT, ATC Visit Plan Frequency: 2-3x /Week Duration: 6-8 weeks Plan: R shoulder PROM x 2-4 weeks progressing to AROM at that time. Begin strengthening when ordered per surgeon consisting of rotator cuff strengthening and scap stab ex's. Subjective Subjective: DOS: 06/07/24. Pt had a R rotator cuff repair at that time. Pt reports he is feeling pretty good at this time. Pt notes no PMHx of R shoulder complications in the past. Pt reports he had a L rotator cuff repair one year ago and it is doing well. No tingling or numbness in R UE at this time. No sleep difficulty secondary to pain. Pt is R hand dominant. 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 Pt reports he is supposed to continue wearing his sling through today, but then can go without his sling starting tomorrow. Pt reports he has not been performing any HEP at this time, but plans on starting them tomorrow. 0/10 pain at rest. Pain R shoulder: Pain Intensity (Out of 10): 0 Objective Objective: Observation: Incisions are healing well at this time. No signs of infection Neuro: B UE sensation is WNL to light touch. ROM: L shoulder AROM flex= 160, abd= 160, ER= 70, IR= WNL; R shoulder PROM flex and scap= 80 degrees MMT: L shoulder flex= 14, abd= 21, ER= 21, IR= 26; R shoulder not tested Balance/Special Test Scores Quick DASH Score: 50.0000 Goals Goal 1:: Increase R shoulder ROM to equal L shoulder ROM to aid with IADL's Goal Time Frame: 6-8 Weeks Goal 2:: Increase R shoulder strength to 90% L shoulder strength to aid with IADL's Goal Time Frame: 6-8 Weeks Goal 3:: I with HEP Goal Time Frame: 6-8 Weeks Rehabilitation Potential Physical Therapy Diagnosis: Pt has R shoulder pain, weakness, and limited ROM secondary to R shoulder rotator cuff repair Rehabilitation Potential: Good Anticipated Interventions Patient/Client Instruction: Educate patient on: Condition and Plan of Care For the Purpose of:: To improve self management Therapeutic Exercise to Include: Strength training, Flexibilty training, Passive ROM, Active ROM and Scapular Strength/Stabilization For the Purpose of:: To decrease pain, To increase ROM and To improve muscle performance and motor function Cryotherapy (ice pack, ice massage): Yes For the Purpose of:: To decrease pain Text: Thank you for the opportunity to evaluate your patient. For Medicare and Medicare HMO plans, please review the plan of care and approve it. It will need to be FAXED BACK to us at [phone] for Medicare purposes. For Medicare only, by signing this I certify the plan of care. Please let me know if there are questions or concerns regarding this plan of care. Physician Signature: Date: 06/24/24 1225 CC: Dr. Roney Das MD; Dr. Ramana Zamora MD [facility] Signed Normal [facility] Orthopedic Visit Reporton Orthopedic Visit Report [facility] [address] [place] [address] OFFICE VISIT Date of Service: 06/24/24 MR#: [id number] Acct: [id number] Name: HARJIT CALVILLO Rep #: [id number] : 1960 Provider: Dr. Ramana ritter MD Age/Sex: 64/M Location: [facility] [place].ANJELICA Status: Signed Intake Vital Signs 02/01/24 12:35 06/07/24 05:54 Height 5 ft 10 in 5 ft 10 in Intake Visit Reasons: right shoulder Accompanied by: Self Allergies orphenadrine citrate (From Norflex) Allergy (Severe, Verified 06/24/24 10:08) Hives, restricted airway tamsulosin (From Flomax) Adverse Reaction (Verified 06/24/24 10:08) Urinary retention Medications ???Medication ???Instructions ???Recorded ???Confirmed ???Type multivitamin with minerals 1 tab PO DAILY 12/08/20 06/24/24 History gabapentin 300 mg capsule 300 mg PO 4X/DAY 11/01/21 06/24/24 History tizanidine 4 mg capsule (Zanaflex) 4 mg PO BID 11/01/21 06/24/24 History saw palmetto 160 mg capsule 320 mg PO BID 05/10/23 06/24/24 History ascorbic acid (vitamin C) 500 mg 500 mg PO DAILY PRN winter05/29/23 06/24/24 History tablet (C-500) ONLY zinc 50 mg capsule 50 mg PO DAILY PRN winter05/29/23 06/24/24 History cetirizine 10 mg capsule (All Day 10 mg PO DAILY 04/03/24 06/24/24 History Allergy (cetirizine)) psyllium husk 0.4 gram capsule 0.8 g PO QDAY 04/03/24 06/24/24 History (Daily Fiber) amlodipine 5 mg tablet 5 mg PO QHS 05/27/24 06/24/24 History lisinopril 20 mg tablet 20 mg PO DAILY 05/27/24 06/24/24 History PFSH Medical History Right rotator cuff tear PONV (postoperative nausea and vomiting) History of diverticulitis Neuropathy Sciatic leg pain Partial tear of left subscapularis tendon Left rotator cuff tear Left shoulder pain History of epidural anesthesia Wears glasses Cancer Alcohol use Hematoma Arthritis Restless legs Back pain Former smoker CPAP (continuous positive airway pressure) dependence Leg cramps History of edema History of stress test Scoliosis deformity of spine Hypertension Surgical History History of arthroscopy of shoulder Hx of cystoscopy History of colonoscopy History of lithotripsy Hx of toe surgery Hx of toe surgery Hx of excision of mass History of spinal fusion for scoliosis Hx of cholecystectomy Family History Mother Heart disease Diabetes type 2, uncontrolled S/P CABG x 4 Glaucoma Father Stage 4 malignant neoplasm of lung Social History household members: spouse Smoking Status: Former smoker alcohol intake: never HPI right shoulder Details: This documentation accurately reflects the service provided and the decisions made by me, Dr. Ramana Zamora MD 06/24/24 1004. Part of today???s visit was documented by [ ], acting as scribe. HARJIT CALVILLO is a 64 year old M here today for 2 weeks Right shoulder arthroscopy, subacromial decompression, rotator cuff repair of supraspinatus and subscapularis as well as separate open incision biceps tenodesis. Patient doing well pain is settling down a little bit of soreness lateral deltoid. The patient is physical therapy scheduled for today at 11:30 AM. Ortho Exam General General: Yes no acute distress Neurologic: Yes alert and Yes oriented x3 Psychologic: Yes reasonable and appropriate Right Shoulder Skin/Wound: Yes CDI, Yes healed, No ecchymosis, No erythema and No swelling SHOULDER: nvi mru and ain/pin, ax nerves. good radial pulse Coding Level of Care Code Global Post Op Diagnoses Right rotator cuff tear M75.101 Assessment and Plan Assessment and Plan (1) Right rotator cuff tear: Status: Acute Plan: HARJIT CALVILLO is a 64 year old M here today for 2 weeks Right shoulder arthroscopy, subacromial decompression, rotator cuff repair of supraspinatus and subscapularis as well as separate open incision biceps tenodesis. Patient doing well recommend discontinuing the sling. Okay to shower over top of the incisions. Start some gentle range of motion of the shoulder and follow-up in 4 weeks time he understands no further questions or concerns. 06/24/24 1028 Date Ramana Zamora MD Cosigner Signature: Date (if applicable) CC: [facility] Orthopedic Visit Reporton Orthopedic Visit Report [facility] [address] [place] [address] OFFICE VISIT Date of Service: 06/10/24 MR#: [id number] Acct: [id number] Name: HARJIT CALVILLO Rep #: [id number] : 1960 Provider: Dr. Ramana ritter MD Age/Sex: 63/M Location: [facility] [place].ANJELICA Status: Signed Intake Vital Signs 02/01/24 12:35 06/07/24 05:54 Height 5 ft 10 in 5 ft 10 in Intake Visit Reasons: right shoulder Is patient in pain?: No Allergies orphenadrine citrate (From Norflex) Allergy (Severe, Verified 06/10/24 10:03) Hives, restricted airway tamsulosin (From Flomax) Adverse Reaction (Verified 06/10/24 10:03) Urinary retention Medications ???Medication ???Instructions ???Recorded ???Confirmed ???Type multivitamin with minerals 1 tab PO DAILY 12/08/20 06/10/24 History gabapentin 300 mg capsule 300 mg PO 4X/DAY 11/01/21 06/10/24 History tizanidine 4 mg capsule (Zanaflex) 4 mg PO BID 11/01/21 06/10/24 History saw palmetto 160 mg capsule 320 mg PO BID 05/10/23 06/10/24 History ascorbic acid (vitamin C) 500 mg 500 mg PO DAILY PRN winter05/29/23 06/10/24 History tablet (C-500) ONLY zinc 50 mg capsule 50 mg PO DAILY PRN winter05/29/23 06/10/24 History cetirizine 10 mg capsule (All Day 10 mg PO DAILY 04/03/24 06/10/24 History Allergy (cetirizine)) psyllium husk 0.4 gram capsule 0.8 g PO QDAY 04/03/24 06/10/24 History (Daily Fiber) amlodipine 5 mg tablet 5 mg PO QHS 05/27/24 06/10/24 History lisinopril 20 mg tablet 20 mg PO DAILY 05/27/24 06/10/24 History oxycodone-acetaminophen 5 mg-325 1 tab PO Q4H PRN pain 5 days #30 06/07/24 06/10/24 Rx mg tablet (Endocet) tabs PFSH Medical History Right rotator cuff tear PONV (postoperative nausea and vomiting) History of diverticulitis Neuropathy Sciatic leg pain Partial tear of left subscapularis tendon Left rotator cuff tear Left shoulder pain History of epidural anesthesia Wears glasses Cancer Alcohol use Hematoma Arthritis Restless legs Back pain Former smoker CPAP (continuous positive airway pressure) dependence Leg cramps History of edema History of stress test Scoliosis deformity of spine Hypertension Surgical History History of arthroscopy of shoulder Hx of cystoscopy History of colonoscopy History of lithotripsy Hx of toe surgery Hx of toe surgery Hx of excision of mass History of spinal fusion for scoliosis Hx of cholecystectomy Family History Mother Heart disease Diabetes type 2, uncontrolled S/P CABG x 4 Glaucoma Father Stage 4 malignant neoplasm of lung Social History household members: spouse Smoking Status: Former smoker alcohol intake: never HPI right shoulder Details: This documentation accurately reflects the service provided and the decisions made by me, Dr. Ramana Zamora MD 06/10/24 0930. Part of today???s visit was documented by [ ], acting as scribe. HARJIT CALVILLO is a 63 year old M here today for POD 3 Right shoulder arthroscopy, subacromial decompression, rotator cuff repair of supraspinatus and subscapularis as well as separate open incision biceps tenodesis. Patient doing well the block wore off the next morning did take about a day of Percocet now weaning off those just trying to take them at night overall the pain is reasonably well-controlled. Coding Level of Care Code Global Post Op Diagnoses Right rotator cuff tear M75.101 Assessment and Plan Assessment and Plan (1) Right rotator cuff tear: Status: Acute Plan: HARJIT CALVILLO is a 63 year old M here today for POD 3 Right shoulder arthroscopy, subacromial decompression, rotator cuff repair of supraspinatus and subscapularis as well as separate open incision biceps tenodesis. Recommend pendulum exercises gentle range of motion of the hand wrist and elbow no heavy lifting over 1 pound. Okay to keep the incisions clean and dry change dressings every 2 days follow-up in the office in 2 weeks time. Orders: Referrals PT Referral M75.101 - Unspecified rotator cuff tear or rupture of right shoulder, not specified as traumatic Ortho Exam General General: Yes no acute distress Neurologic: Yes alert and Yes oriented x3 Psychologic: Yes reasonable and appropriate Right Shoulder Skin/Wound: Yes CDI, Yes healing, No ecchymosis, No erythema and Yes swelling SHOULDER: nvi mru and ain/pin, ax nerves. good radial pulse 06/10/24 1017 Date Ramana Zamora MD Cosigner Signature: Date (more content not included)... Normal [facility] Discharge Instructionon 05-20 Discharge Instruction [facility] Medical Records Department [address] [place] [address] Instructions for Home/Discharge Instructions 06/07/24 0956 MR#: [id number] Acct: [id number] Name: HARJIT CALVILLO Rep #: [id number] : 1960 63 From: Ramana Zamora MD PCP: Dr. Roney Das MD Status:[facility] Discharge Instructions Diet Discharge Diet: No restrictions Activity Ice area for (Minutes): 10 Lifting Restrictions: pendulums 4x/day, no lifting over 1 pound Additional Activity Instructions:: ok to remove sling while at rest Dressing / Incision Call your doctor if your incision/area has: Continuous Slow Oozing, Sudden Increased Bleeding, Increased Pain/ Swelling, Increased Redness, Foul Smelling Discharge and Swelling at the incision site Call your doctor if you observe: Fever of 101 or Higher, Coldness, Increased Pain and Numbness or Tingling Remove Dressing in: leave in place till F/U Cleanse incision/area with: Do not get Incision Wet Follow Up Care Please Follow Up With: Ramana Zamora MD When: next week Test Results: Test results from this visit will be discussed in further detail at your follow-up appointment, if applicable. Discharge Plan Admission Attending Provider: Ramana Zamora Primary Care Provider: Roney Das Instructions Print Language: Faroese Discharge Orders/Prescriptions Prescriptions: New oxycodone-acetaminophen [Endocet] 5-325 mg tablet 1 tab PO Q4H MDD 6 PRN (Reason: pain) 5 Days Qty: 30 0RF No Action saw palmetto 160 mg capsule 320 mg PO BID Rx Instructions: give with meal/snack gabapentin 300 mg capsule 300 mg PO 4X/DAY tizanidine [Zanaflex] 4 mg capsule 4 mg PO BID Rx Instructions: 1 TAB IN A.M.; 2 TAB QHS ascorbic acid (vitamin C) [C-500] 500 mg tablet 500 mg PO DAILY PRN (Reason: winter ONLY) zinc 50 mg capsule 50 mg PO DAILY PRN (Reason: winter) psyllium husk [Daily Fiber] 0.4 gram capsule 0.8 g PO QDAY All Day Allergy (cetirizine) 10 mg capsule 10 mg PO DAILY lisinopril 20 mg tablet 20 mg PO DAILY amlodipine 5 mg tablet 5 mg PO QHS multivitamin with minerals Tablet 1 tab PO DAILY Referrals / Follow Up: Roney Das MD [Primary Care Provider] - Ramana Zamora MD [Med Staff - Active Staff] - Disposition Disposition (needs filled in before D/C Order can be placed): Home, Self Care 06/07/24 1243 Ramana Zamora MD CC: Dr. Roney Das MD Signed Normal [facility] MR/POSTOP.Karoline 06-07-2024 MR/POSTOP.[facility] Medical Records Department [address] [place] [address] Anesthesia Postop Eval I 06/07/24 1050 MR#: [id number] Acct: [id number] Name: HARJIT CALVILLO Rep #: [id number] : 1960 63 From: Barrington Kuo PCP: Dr. Roney Das MD Status:REG [facility] Y Race: C Location: [place] [address] Anesthesia: Postop Eval I Current Vital Signs Temperature: 97.6 F Pulse Rate: 72 Blood Pressure: 150/95 Respiratory Rate: 16 Pulse Ox: 98 Oxygen Delivery Method: Room Air Assessment Airway patent: No Spontaneous unlabored respirations: No Mental status: Awake and Calm nausea: No Vomiting: No Anesthesia Complication: No Fluid Hydration Crystalloid volume administer (ml): 1,200 Total IV fluid infused: 1,200 Progress Note Anesthesia document: Postop Eval 1 completed: Yes 06/07/24 1051 Date Barrington Garcesleidy Signature: Date CC: Signed Normal [facility] MR/[id number] 06-07-2024 [facility] Medical Records Department [address] [place] [address] Anesthesia Postop Eval II 06/07/24 1211 MR#: [id number] Acct: [id number] Name: HARJIT CALVILLO Rep #: [id number] : 1960 63 From: Adriano Michele MD PCP: Dr. Roney Das MD Status:[facility] Y Race: C Location: [facility] Anesthesia Postop Eval I Sum Postop Eval Completion status Anesthesia document: Postop Eval 1 completed: Yes Anesthesia Postop Eval I Summary Anesthesia Postop Eval I Summary: Anesthesia Postop Eval I: Assessment Summary Airway patent No 06/07/24 10:51 WARE CLEANER.MDOT Spontaneous unlabored No 06/07/24 10:51 WARE CLEANER.MDOT respirations Mental status Awake,Calm 06/07/24 10:51 WARE CLEANER.MDOT nausea No 06/07/24 10:51 WARE CLEANER.MDOT Vomiting No 06/07/24 10:51 WARE CLEANER.MDOT Anesthesia Postop Eval I: Fluid Summary Crystalloid volume administer 1,200 06/07/24 10:51 WARE CLEANERCLINTON (ml) Colloids volume administered ( ml) Blood Product volume administered (ml) Total IV fluid infused 1,200 06/07/24 10:51 WARE CLEANER.YAYA Anesthesia Postop Eval I: Summary Notes Anesthesia Complication No 06/07/24 10:51 WARE CLEANER.YAYA Anesthesia Complication Comment: Post-operative progress note Anesthesia: Postop Eval II Evaluation Mental status: Awake Pain Level: 2 nausea: No Vomiting: No 06/07/24 1211 Date Adriano Goldberg Signature: Date CC: Signed Normal [facility] Operative Reporton 4 Operative Report [facility] Medical Records Department [address] [place] [address] Operative Report 06/07/24 0958 MR#: [id number] Acct: [id number] Name: HARJIT CALVILLO Rep #: [id number] : 1960 63 From: Ramana Zamora MD PCP: Dr. Roney Das MD Status:[facility] Location: [place] [address] Problems Associated Problem List Diagnoses (1) Partial tear of left subscapularis tendon: (2) Right rotator cuff tear: Procedures Musculoskeletal 20xxx-29xxx: Other Procedure See Report Operative Report (Standard) Operative Information Date of Procedure: 06/07/24 Pre-Operative Diagnosis: Right shoulder impingement syndrome rotator cuff tears of the supraspinatus and subscapularis and subluxation of the biceps Post-Operative Diagnosis: Same Surgery/Procedure Performed: Right shoulder arthroscopy, subacromial decompression, rotator cuff repair of supraspinatus and subscapularis as well as separate open incision biceps tenodesis saas architect: Yes Legal Billing Analyst: blank Tasks completed by assistant loan processor: Retracting Additional medical services assistant?: No Type of Anesthesia: Block,Regional and General RN Documented Start/Stop Times: Operation Date: 06/07/24 07:30 Case Time Into Pre-Op 06/07/24 05:41 Out of Pre-Op 06/07/24 07:30 Anesthesia Start 06/07/24 07:55 Into Room 06/07/24 07:55 Procedure Start 06/07/24 08:15 Procedure End 06/07/24 09:49 Anesthesia End 06/07/24 09:56 Out of Room 06/07/24 09:56 Procedure Start Time: 08:15 Procedure Stop Time: 09:49 Select all DRAINS/GRAFTS/IMPLANTS that apply: Implanted device Implanted device details: Arthrex anchors bio composite swivel lock and tension tight biceps button Estimated Blood Loss: 50 Specimen collected: Yes Description of specimen(s) removed: lhb biceps Description of surgery: Patient brought to the operating room theater. Placed supine on the table. 2 g IV Ancef administered prior to the start of the procedure. General anesthesia induced. Patient transferred right side up lateral decubitus beanbag positioner. All bony prominences were padded. Axillary roll used SCDs and legs. Upper extremity prepped and draped in usual sterile fashion with chlorhexidine-based prep solution allowing over 3 minutes drying time prior to draping. 10 pounds of inline traction 45 degrees of abduction was used. Preoperative timeout performed to confirm the site patient the surgery. Began by inserting the arthroscope into the intra-articular portion of the shoulder through a standard posterior arthroscopy portal. Made an accessory anterior portal using inside out spinal needle localization. No loose bodies. Mild osteoarthritis cartilage grade 1 changes glenoid and humeral head. No tears of the infraspinatus or teres minor. There is fraying of the biceps tendon and hypertrophy with subluxation out of the groove medially. I elected to perform a intra-articular biceps tenotomy to prepare for a later biceps tenodesis. There was a full-thickness along the anterior footprint of the supraspinatus [id number]. There is also high-grade full-thickness tearing at the subscapularis. I inserted the cannula through the anterior rotator interval. I release adhesions along the subscapularis. Despite this it was still quite stiff to get to the original footprint. I used the power pick instrument to perform multiple small holes trephination's for bleeding bed for healing and cleared away any soft tissue remaining. I placed 2 luggage tag Arthrex #2 FiberWire sutures and then inserted these into a 4.75 mm bio composite swivel lock anchor at the footprint of the subscapularis. I then inserted the arthroscope into the subacromial space. Moderate burtitis removed. There is type II acromion with quite a bit of downsloping of the anterolateral aspect so I flattened this out using a high-speed shruti instrument by about 5 mm. I gently debrided the tear of the anterior SS tendon, cleared the footprint and used the power pick to stimulate healing. i placed an inverted U horizontal mattress fiber tape suture, then a luggage tag stitch medial to that to create a rip stop configuration. Then inserted those 3 free end sutures into arthrex biocomposite 4.75mm swivelock anchor. Good compression at the footprint. Arthroscopy pictures taken and saved throughout this case. I then turned my attention to the biceps tenodesis. I made a 1 inch longitudinal incision centered at the proximal upper medial border of the humerus overlying the long head of the biceps. Carried the dissection down through skin and subcutaneous tissue achieved meticulous hemostasis. Incised the fascia in line with skin incision. Identified the long head of the biceps deliver this through the incision and shorten up the tendon. I then used the locking loop luggage tag configuration suture with the distal end of the suture passing distal t (more content not included)... [facility] Surgery Specimen Level IIIon 06-07-2024 Surgery Specimen Level III Patient Age/Sex Location Account Attending Physician HARJIT CALVILLO 63/M [facility] [id number] Dr. Ramana Zamora MD Specimen: [id number] Received: 06/07/24-1304 Status: SUSY Jenkins Num: [id number] Spec Type: TENDON Subm Dr: Dr. Ramana Zamora MD HEADER OPERATION: Right shoulder arthroscopy, subacromial decompression PRE-OP DIAGNOSIS: Right rotator cuff tear TISSUE SUBMITTED: Bicep tendon MICROSCOPIC DIAGNOSIS Bicep tendon, excision: Pieces of dense fibroconnective tissue with reactive changes, clinically rotator cuff tear. 06/10/2024 MICROSCOPIC DESCRIPTION Slides are reviewed. GROSS DESCRIPTION Received in fixative is one container labeled with the patient's name and designated Bicep tendon. The specimen consists of two pieces of warner indurated tissue measuring in aggregate 6.0 x 2.5 x 0.5cm. Structural Layout Worker sections are submitted in one cassette. . 06/07/2024 TC:5 CPT:53104 Patient Age/Sex Location Account Attending Physician HARJIT CALVILLO 63/M [facility] [id number] Dr. Ramana Zamora MD Signed (signature on file) Dr. Devin Davis MD 06/10/24 1305 Normal [facility] Comment on above: Performed By: #### P SUIII ####[facility] [address] [place], [address] 12 Lead EKGon 06-04-2024 12 Lead EKG [facility] Cardiovascular Services [address] [place] [address] 12 Lead EKG 06/04/24 1348 MR#: [id number] Acct: [id number] Name: HARJIT CALVILLO Rep #: [id number] : 1960 63 From: Ubaldo Copeland MD Attending Dr: Dr. Ramana Zamora MD Status: TX E SD Ordering Dr: Adriano Michele MD Date: 06/04/24 Location: [facility] Sex: M C Admitted: Test Reason : PRE OP Blood Pressure : */* mmHG Vent. Rate : 87 BPM Atrial Rate : 87 BPM P-R Int : 154 ms QRS Dur : 84 ms QT Int : 376 ms P-R-T Axes : 54 43 19 degrees QTcB Int : 452 ms Normal sinus rhythm Nonspecific ST abnormality Abnormal ECG Confirmed by DINORAH ALBARADO, UBALDO ([id number]), commercial production editor ALEJANDRO BEE ([id number]) on 06/05/2024 1:19:00 PM Referred By: Ramana Zamora Confirmed By: UBALDO COPELAND MD 06/05/24 1319 Date Ubaldo Copeland MD CC: Dr. Adriano Michele MD; Dr. Roney Das MD; Dr. Ramana Zamora MD Signed Normal [facility] Orthopedic Visit Reporton Orthopedic Visit Report [facility] [address] [place] [address] OFFICE VISIT Date of Service: 02/29/24 MR#: [id number] Acct: [id number] Name: HARJIT CALVILLO Rep #: [id number] : 1960 Provider: Dr. Ramana ritter MD Age/Sex: 63/M Location: [facility].ANJELICA Status: Signed Intake Vital Signs 02/01/24 12:35 Height 5 ft 10 in Intake Visit Reasons: RIGHT SHOULDER Accompanied by: Self Is patient in pain?: Yes Pain scale (1-10): 8 Allergies orphenadrine citrate (From Norflex) Allergy (Severe, Verified 02/29/24 08:24) Hives, restricted airway tamsulosin (From Flomax) Adverse Reaction (Verified 02/29/24 08:24) Urinary retention Medications ???Medication ???Instructions ???Recorded ???Confirmed ???Type lisinopril 10 mg tablet 20 mg PO DAILY 01/02/15 02/29/24 History amlodipine 10 mg tablet 5 mg PO QHS 12/08/20 02/29/24 History multivitamin with minerals 1 tab PO DAILY 12/08/20 02/29/24 History gabapentin 300 mg capsule 300 mg PO 4X/DAY 11/01/21 02/29/24 History tizanidine 4 mg capsule (Zanaflex) 4 mg PO BID 11/01/21 02/29/24 History tramadol 50 mg tablet 50 mg PO TID 11/01/21 02/29/24 History docusate sodium 50 mg capsule 50 mg PO DAILY 03/29/22 02/29/24 History saw palmetto 160 mg capsule 160 mg PO BID 05/10/23 02/29/24 History ascorbic acid (vitamin C) 500 mg 500 mg PO DAILY 05/29/23 02/29/24 History tablet (C-500) cyanocobalamin (B12)-cobamamide 1 camilo sublingual DAILY 05/29/23 02/29/24 History 5,000 mcg-100 mcg sublingual lozenge (B12) zinc 50 mg capsule 50 mg PO DAILY 05/29/23 02/29/24 History PFSH Medical History PONV (postoperative nausea and vomiting) History of diverticulitis Neuropathy Sciatic leg pain Partial tear of left subscapularis tendon Left rotator cuff tear Left shoulder pain History of epidural anesthesia Wears glasses Cancer Alcohol use Hematoma Arthritis Restless legs Back pain Former smoker CPAP (continuous positive airway pressure) dependence Leg cramps History of edema History of stress test Scoliosis deformity of spine Hypertension Surgical History Hx of cystoscopy History of colonoscopy History of lithotripsy Hx of toe surgery Hx of toe surgery Hx of excision of mass History of spinal fusion for scoliosis Hx of cholecystectomy Family History Mother Heart disease Diabetes type 2, uncontrolled S/P CABG x 4 Glaucoma Father Stage 4 malignant neoplasm of lung Social History household members: spouse Smoking Status: Former smoker alcohol intake: never HPI RIGHT SHOULDER Details: This documentation accurately reflects the service provided and the decisions made by me, Dr. Ramana Zamora MD 02/29/24 0806. Part of today???s visit was documented by [ ], acting as scribe. HARJIT CALVILLO is a 63 year old M here today for 3 months hx of right shoulder pain. dogs pulled on the leash and there was a pop. worse at night. lateral side. TX - ice. creams. at home strengthening with bands for 6 weeks. Supplemental Info [facility] Imaging Services [address] [place] [address] Upper Ext Joint Only(Routine) MR#: [id number] Acct: [id number] Name: HARJIT CALVILLO Rep #: [id number] : 1960 M 63 From: oRbles Tinoco MD PCP: Dr. Roney Das MD Status: REG CLI Study: Upper Ext Joint Only(Routine) Date of Exam: 02/26/24 Exam# [id number] Ordering Dr: Lizzy Robledo COPING MACHINE OPERATOR-C [id number] STUDY: MRI RIGHT SHOULDER REASON FOR EXAM: Male, 63 years old. RIGHT SHOULDER PAIN TECHNIQUE: Standardized fat and water weighted pulse sequences were obtained in all 3 orthogonal planes. COMPARISON: None. FINDINGS: There is supraspinatus tendinosis with a partial articular supraspinatus tendon avulsion (PASTA) lesion measuring 1.0 cm in length (coronal T2 series 5 images 10-11). There is infraspinatus tendinosis with a linear interstitial/delaminati ng tear extending to its myotendinous junction (coronal T2 series 5 images 4-6). There is a full-thickness tear of the distal subscapularis tendon with 2.0 cm medial tendon retraction. Normal teres minor tendon. Normal supraspinatus muscle. Normal infraspinatus muscle. Normal subscapularis muscle. Normal teres minor muscle. There is a moderate glenohumeral joint effusion with fluid communicating into (more content not included)... Normal [facility] Shoulder min 2 Viewson 02-28 Shoulder min [address] [facility] Radiology [address] [place] [address] Shoulder min 2 Views MR#: [id number] Acct: [id number] Name: HARJIT CALVILLO Rep #: [id number] : 1960 M 63 From: Donte park MD PCP: Dr. Roney Das MD Status: DEP AMB Study: Shoulder min 2 Views Date of Exam: 02/29/24 Exam# [id number] Ordering Dr: [place] [id number] INDICATION: pain EXAMINATION/TECHNIQUE: X-RAY - RIGHT XR Shoulder Min 2 Views 4 VIEWS COMPARISON: No relevant prior comparison study available FINDINGS: SOFT TISSUES: No soft tissue swelling or gas. No radiopaque foreign body. BONES/JOINTS: No acute fracture or subluxation.. Normal alignment. Mild degenerative changes.. No sclerotic or destructive changes observed. RAD/Shoulder min 2 Views IMPRESSION: Negative. Electronically Signed: Donte Giang MD at 18:27 EDT , CC: Dr. Roney Das MD; Dr. Ramana Zamora MD Adolescent Specialist: Signed Normal [facility] Upper Ext Joint Only(Routine )on 02-26-2024 Upper Ext Joint Only(Routine) [facility] Imaging Services [address] [place] [address] Upper Ext Joint Only(Routine) MR#: [id number] Acct: [id number] Name: HARJIT CALVILLO Rep #: [id number] : 1960 M 63 From: Robles Tinoco MD PCP: Dr. Roney Das MD Status: REG CLI Study: Upper Ext Joint Only(Routine) Date of Exam: 0 02/26/24 Exam# [id number] Ordering Dr: Lizzy Robledo [id number] STUDY: MRI RIGHT SHOULDER REASON FOR EXAM: Male, 63 years old. RIGHT SHOULDER PAIN TECHNIQUE: Standardized fat and water weighted pulse sequences were obtained in all 3 orthogonal planes. COMPARISON: None. FINDINGS: There is supraspinatus tendinosis with a partial articular supraspinatus tendon avulsion (PASTA) lesion measuring 1.0 cm in length (coronal T2 series 5 images 10-11). There is infraspinatus tendinosis with a linear interstitial/delaminati ng tear extending to its myotendinous junction (coronal T2 series 5 images 4-6). There is a full-thickness tear of the distal subscapularis tendon with 2.0 cm medial tendon retraction. Normal teres minor tendon. Normal supraspinatus muscle. Normal infraspinatus muscle. Normal subscapularis muscle. Normal teres minor muscle. There is a moderate glenohumeral joint effusion with fluid communicating into the subacromial-subdeltoid bursa. There is enthesopathic subcortical cyst formation of the greater tuberosity of the humeral head. There is medial dislocation of the long biceps tendon. Intact biceps labral complex. Normal labrum. Normal capsulo-ligamentous complex. There is mild hypertrophic acromioclavicular arthrosis, with inferior osteophyte formation, with mild effacement of the supraspinatus myotendinous junction. There is a Type II morphology (curved), with a neutral orientation. There is trace subacromial-subdeltoid bursal fluid. Normal visualized coracohumeral and coracoacromial ligaments. Normal quadrilateral space. Normal axillary space. Normal deltoid muscle. Normal trapezius muscle. MRI/Upper Ext Joint Only(Routine) IMPRESSION: Supraspinatus tendinosis with a partial articular supraspinatus tendon avulsion (PASTA) lesion measuring 1.0 cm in length. Infraspinatus tendinosis with a linear interstitial/delaminati ng tear extending to its myotendinous junction. Full-thickness tear of the distal subscapularis tendon with 2.0 cm medial tendon retraction. Moderate glenohumeral joint effusion with fluid communicating into the subacromial-subdeltoid bursa. Medial dislocation of the long biceps tendon. Mild hypertrophic acromioclavicular arthrosis, with inferior osteophyte formation, with mild effacement of the supraspinatus myotendinous junction. Minimal subacromial-subdeltoid bursitis. Electronically Signed: Robles Tinoco MD at 14:01 EDT Reading Location ID and State: [facility] / [place] , Service support , CC: PERLITA Robledo; Dr. Roney Das MD Adolescent Specialist: Signed Normal [facility] Basophil percentageOrdered B y: Adriano Michele on 05-30-2023 WBC (Bld) [#/Vol] 6.6 10*3/uL 4.4-11.0 [facility] Blood erythrocytes count (nu mber/volume)Ordered By: Adriano Michele on 05-30-2023 RBC (Bld) [#/Vol] 5.32 10*6/uL 4.6-6.2 [facility] Blood hemoglobin measurement (mass/volume)Ordered By: Adriano Michele on 05-30-2023 Hemoglobin (Bld) [Mass/Vol] 15.5 g/dL 13.0-16.5 [facility] Blood platelet mean volumeOr dered By: Adriano Michele on 05-30-2023 Platelet mean volume (Bld) [Entitic vol] 9.8 fL 6.2-12.0 [facility] Determination of erythrocyte mean corpuscular volume (MCV)Ordered By: Adriano Michele on 05-30-2023 MCV (RBC) [Entitic vol] 87.4 fL 80-94 [facility] Hematocrit Auto (Bld) [Volum e fraction]Ordered By: Adriano Michele on 05-30-2023 Hematocrit (Bld) [Volume fraction] 46.5 % 40-54 [facility] Laboratory - Hematology and Cell countsOrdered By: Adriano Michele on 05-30-2023 Erythrocyte distribution width (RBC) [Entitic vol] 41.3 fL 35.1-43.9 [facility] Erythrocyte distribution width (RBC) [Ratio] 13.0 % 11.6-14.6 [facility] MCH (RBC) [Entitic mass] 29.1 pg 27.0-32.0 [facility] MCHC Auto (RBC) [Mass/Vol]Or dered By: Adriano Michele on 05-30-2023 MCHC (RBC) [Mass/Vol] 33.3 g/dL 32-36 [facility] Platelets bldOrdered By: Adriano Michele on 05-30-2023 Platelets (Bld) [#/Vol] 245 10*3/uL 150-450 [facility] No Panel Informationon 02-15 Prostate Specific Antigen Screen 2.05 ng/mL 0.00-4.00 [facility] Comment on above: This test was perfor med using the TPSA assay method for [employer] chemistry system. Values obtained with differentassay methods cannot be used interchangably.When changing PSA assays in the course of monitoring apatient, additional sequential testing should be carriedout to confirm baseline values. Absolute lymphocyte countOrd ered By: HEALTH ASSESSMENT on 02-06-2023 Lymphocytes Auto (Unsp spec) [#/Vol] 1.82 10*3/uL 0.83-4.51 [facility] Absolute reticulocyte countO rdered By: HEALTH ASSESSMENT on 02-06-2023 Reticulocytes (Bld) [#/Vol] 0.00 10*3/uL 0-5 [facility] Basophil percentageOrdered B y: HEALTH ASSESSMENT on 02-06-2023 Basophil percentage 3.1 mg/dL 2.5-4.9 [facility] Bilirubin [Mass/Vol] 1.10 mg/dL 0.20-1.00 [facility] Comment on above: For patients on eltr ombopag therapy, use of Dimension Gibson TBIL is not recommended. Chloride [Moles/Vol] 109 mmol/L 98-107 [facility] Cholesterol [Mass/Vol] 144 mg/dL <200 [facility] Comment on above: <200 mg/dL Desirable 200-240 mg/dL Borderline >240 mg/dL High Risk Glucose [Mass/Vol] 109 mg/dL 74-106 [facility] Comment on above: Fasting Glucose resu lt from 100 to 125 mg/dL suggests IMPAIRED HOMEOSTASIS per A.D.A. criteria. LDH [Catalytic activity/Vol] 146 U/L 87-241 [facility] Neutrophils (Bld) [#/Vol] 3.4 10*3/uL 2.0-7.7 [facility] Potassium [Moles/Vol] 4.0 mmol/L 3.5-5.1 [facility] Protein [Mass/Vol] 6.9 g/dL 6.4-8.2 [facility] Sodium [Moles/Vol] 140 mmol/L 136-145 [facility] Triglyceride [Mass/Vol] 94 mg/dL <199 [facility] Comment on above: The drugs N-Acetylcy steine and Metamizole may falsely depress this assay.Serum Triglycerides Reference Interval Normal <150 mg/dL Borderline high 150 - 199 mg/dL High 200 - 499 mg/dL Very High > or = 500 mg/dL WBC (Bld) [#/Vol] 6.0 10*3/uL 4.4-11.0 [facility] Blood erythrocytes count (nu mber/volume)Ordered By: HEALTH ASSESSMENT on 02-06-2023 RBC (Bld) [#/Vol] 5.02 10*6/uL 4.6-6.2 [facility] Blood hemoglobin measurement (mass/volume)Ordered By: HEALTH ASSESSMENT on 02-06-2023 Hemoglobin (Bld) [Mass/Vol] 14.8 g/dL 13.0-16.5 [facility] Blood platelet mean volumeOr dered By: HEALTH ASSESSMENT on 02-06-2023 Platelet mean volume (Bld) [Entitic vol] 9.8 fL 6.2-12.0 [facility] Determination of erythrocyte mean corpuscular volume (MCV)Ordered By: HEALTH ASSESSMENT on 02-06-2023 MCV (RBC) [Entitic vol] 88.8 fL 80-94 [facility] Direct bilirubinOrdered By: HEALTH ASSESSMENT on 02-06-2023 Bilirubin.direct [Mass/Vol] 0.23 mg/dL 0.00-0.30 [facility] Hematocrit Auto (Bld) [Volum e fraction]Ordered By: HEALTH ASSESSMENT on 02-06-2023 Hematocrit (Bld) [Volume fraction] 44.6 % 40-54 [facility] Laboratory - Chemistry and C hemistry - challengeOrdered By: HEALTH ASSESSMENT on 02-06-2023 ALP [Catalytic activity/Vol] 67 U/L 45-117 [facility] ALT [Catalytic activity/Vol] 31 U/L 16-61 [facility] Cholesterol.total/Cho lesterol in HDL [Mass ratio] 2.80 {ratio} [facility] CO2 [Moles/Vol] 29.0 mmol/L 21.0-32.0 [facility] Globulin (S) [Mass/Vol] 2.8 g/dL 2.2-4.2 [facility] Urea nitrogen/Creatinine [Mass ratio] 12.4 mg/mg 10-20 [facility] Laboratory - Hematology and Cell countsOrdered By: HEALTH ASSESSMENT on 02-06-2023 Erythrocyte distribution width (RBC) [Entitic vol] 42.2 fL 35.1-43.9 [facility] Erythrocyte distribution width (RBC) [Ratio] 13.0 % 11.6-14.6 [facility] MCH (RBC) [Entitic mass] 29.5 pg 27.0-32.0 [facility] Nucleated RBC/100 WBC (Bld) [Ratio] 0 % 0-5 [facility] MCHC Auto (RBC) [Mass/Vol]Or dered By: HEALTH ASSESSMENT on 02-06-2023 MCHC (RBC) [Mass/Vol] 33.2 g/dL 32-36 [facility] No Panel InformationOrdered By: HEALTH ASSESSMENT on 02-06-2023 Estimated GFR (MDRD) Amer 112 mL/min >60 [facility] Comment on above: GFR Calc Estimated GFR (MDRD) Non-Af Amer 93 mL/min >60 [facility] Comment on above: Non- GFR Calc Platelets bldOrdered By: MOIZ [facility] ASSESSMENT on 02-06-2023 Platelets (Bld) [#/Vol] 215 10*3/uL 150-450 [facility] Segmented neutrophils/100 WB C Auto (Bld)Ordered By: HEALTH ASSESSMENT on 02-06-2023 Segmented neutrophils/100 WBC (Bld) 56.4 % 47-70 [facility] Serum or plasma albumin bang urement (mass/volume)Ordered By: HEALTH ASSESSMENT on 02-06-2023 Albumin [Mass/Vol] 4.1 g/dL 3.2-5.0 [facility] Serum or plasma albumin/glob ulin mass ratioOrdered By: HEALTH ASSESSMENT on 02-06-2023 Albumin/Globulin [Mass ratio] 1.5 {ratio} 0.9-2.4 [facility] Serum or plasma calcium bang urement (mass/volume)Ordered By: HEALTH ASSESSMENT on 02-06-2023 Calcium [Mass/Vol] 9.1 mg/dL 8.5-10.1 [facility] Serum or plasma cholesterol in HDL measurement (mass/volume)Ordered By: HEALTH ASSESSMENT on 02-06-2023 Cholesterol in HDL [Mass/Vol] 51 mg/dL >40 [facility] Comment on above: The drugs N-Acetylcy steine and Metamizole may falsely depress this assay. Reference Range HDL <40 mg/dL Low HDL Cholesterol HDL >or= 60 mg/dL High HDL Cholesterol Serum or plasma cholesterol in VLDL measurement (mass/volume)Ordered By: HEALTH ASSESSMENT on 02-06-2023 Cholesterol in VLDL [Mass/Vol] 19 mg/dL 5-40 [facility] Serum or plasma creatinine m easurement (mass/volume)Ordered By: HEALTH ASSESSMENT on 02-06-2023 Creatinine [Mass/Vol] 0.89 mg/dL 0.70-1.30 [facility] Comment on above: The validity of the calculated GFR & GFRAA in patients over 70 years has not been determined. Clinical correlation is essential. Serum or plasma low density lipoprotein (LDL) cholesterol measurement (mass/volume)Ordered By: HEALTH ASSESSMENT on 02-06-2023 Cholesterol in LDL [Mass/Vol] 74 mg/dL 0-130 [facility] Serum or plasma urea nitroge n measurement (mass/volume)Ordered By: HEALTH ASSESSMENT on 02-06-2023 Urea nitrogen [Mass/Vol] 11 mg/dL 7-18 [facility] Serum or plasma uric acid me asurement (mass/volume)Ordered By: HEALTH ASSESSMENT on 02-06-2023 Urate [Mass/Vol] 5.4 mg/dL 3.5-7.2 [facility] Comment on above: The drugs N-Acetylcy steine and Metamizole may falsely depress this assay. Thin prep Papanicolaou smear with manual screeningOrdered By: HEALTH ASSESSMENT on 02-06-2023 Thin prep Papanicolaou smear with manual screening 18 U/L 15-37 [facility] Thin prep Papanicolaou smear with manual screening 2 5-15 [facility] Whole blood hemoglobin A1c/t otal hemoglobin ratio (mass fraction)on 02-06-2023 HbA1c (Bld) [Mass fraction] 5.3 % 3.8-5.6 [facility] Comment on above: Normal < 5.7 % Predi abetic 5.7 - 6.4 % Diabetic >or= 6.5 % Please note range changes. Laboratory - Drug toxicology Ordered By: Dr. Morse on 12-07-2022 Amphetamines Ql (U) Negative <1000 ng/mL [facility] Benzodiazepines Ql (U) Negative < 200 ng/mL [facility] Cannabinoids Screen Ql (U) Negative < 50 ng/mL [facility] Cocaine Ql (U) Negative < 300 ng/mL [facility] Opiates Ql (U) Negative < 300 ng/mL [facility] No Panel InformationOrdered By: Dr. Morse on 12-07-2022 MDMA (Ecstasy) Screen Negative < 500 ng/mL [facility] Urine Barbiturates Screen Negative < 200 ng/mL [facility] Urine Drug Screen Comment [facility] Comment on above: CONFIRMATORY TESTING FOR ALL POSITIVE URINE DRUG SCREENRESULTS WILL ONLY BE SENT OUT UPON PHYSICIAN ORDER. VISTA Urine Drug Screen methods provide only preliminaryanalytical test results. A more specific alternate chemicalmethod must be used in order to obtain a confirmedanalytical result. Gas chromatography/mass spectrometery(GC/MS) is the preferred confirmatory method. Clinicalconsideration and professional judgement should be appliedto any drug of abuse test result, particularly whenpreliminary positive results are used. URINE TCA TESTING MUST BE ORDERED SEPARATELY. USE TESTMNEMONIC: [facility] Urine Methadone Screen Negative < 300 ng/mL [facility] No Panel InformationOrdered By: Terrance Morse on 12-07-2022 Miscellaneous Test See comment [facility] Comment on above: TEST RESULTS LIMITST ramadol Positive [id number] [place] [address] ng/mL [id number] TESTING PERFORMED AT [facility]. ORIGINAL REPORT ON FILE IN LAB CONTAINS ADDITIONAL TEST SITE INFORMATION. Urine phencyclidine (PCP) de tectionOrdered By: Dr. Morse on 12-07-2022 Phencyclidine Ql (U) Negative < 25 ng/mL [facility] Absolute lymphocyte counton 03-21-2022 Lymphocytes Auto (Unsp spec) [#/Vol] 1.42 10*3/uL 0.83-4.51 [facility] Work Phone: Absolute reticulocyte counto n 03-21-2022 Reticulocytes (Bld) [#/Vol] 0.00 10*3/uL 0-5 [facility] Work Phone: Basophil percentageon 2021 Basophil percentage 2.5 mg/dL 2.5-4.9 [facility] Work Phone: Bilirubin [Mass/Vol] 1.10 mg/dL 0.20-1.00 [facility] Work Phone: Comment on above: For patients on eltr ombopag therapy, use of Dimension Gibson TBIL is not recommended. Chloride [Moles/Vol] 108 mmol/L 98-107 [facility] Work Phone: Cholesterol [Mass/Vol] 145 mg/dL <200 [facility] Work Phone: Comment on above: <200 mg/dL Desirable 200-240 mg/dL Borderline >240 mg/dL High Risk Glucose [Mass/Vol] 123 mg/dL 74-106 [facility] Work Phone: Comment on above: Fasting Glucose resu lt from 100 to 125 mg/dL suggests IMPAIRED HOMEOSTASIS per A.D.A. criteria. Neutrophils (Bld) [#/Vol] 3.7 10*3/uL 2.0-7.7 [facility] Work Phone: Potassium [Moles/Vol] 3.8 mmol/L 3.5-5.1 [facility] Work Phone: Protein [Mass/Vol] 7.3 g/dL 6.4-8.2 [facility] Work Phone: Sodium [Moles/Vol] 142 mmol/L 136-145 [facility] Work Phone: Triglyceride [Mass/Vol] 45 mg/dL <199 [facility] Work Phone: Comment on above: The drugs N-Acetylcy steine and Metamizole may falsely depress this assay.Serum Triglycerides Reference Interval Normal <150 mg/dL Borderline high 150 - 199 mg/dL High 200 - 499 mg/dL Very High > or = 500 mg/dL WBC (Bld) [#/Vol] 5.9 10*3/uL 4.4-11.0 [facility] Work Phone: Blood erythrocytes count (nu mber/volume)on 03-21-2022 RBC (Bld) [#/Vol] 5.05 10*6/uL 4.6-6.2 [facility] Work Phone: Blood hemoglobin measurement (mass/volume)on 03-21-2022 Hemoglobin (Bld) [Mass/Vol] 14.7 g/dL 13.0-16.5 [facility] Work Phone: Blood platelet mean volumeon 03-21-2022 Platelet mean volume (Bld) [Entitic vol] 9.5 fL 6.2-12.0 [facility] Work Phone: Determination of erythrocyte mean corpuscular volume (MCV)on 03-21-2022 MCV (RBC) [Entitic vol] 86.5 fL 80-94 [facility] Work Phone: Direct bilirubinon Bilirubin.direct [Mass/Vol] 0.26 mg/dL 0.00-0.30 [facility] Work Phone: Hematocrit Auto (Bld) [Volum e fraction]on 03-21-2022 Hematocrit (Bld) [Volume fraction] 43.7 % 40-54 [facility] Work Phone: Laboratory - Chemistry and C hemistry - challengeon 03-21-2022 ALP [Catalytic activity/Vol] 70 U/L 45-117 [facility] Work Phone: ALT [Catalytic activity/Vol] 28 U/L 16-61 [facility] Work Phone: Cholesterol.total/Cho lesterol in HDL [Mass ratio] 2.60 {ratio} [facility] Work Phone: CO2 [Moles/Vol] 27.0 mmol/L 21.0-32.0 [facility] Work Phone: Globulin (S) [Mass/Vol] 3.4 g/dL 2.2-4.2 [facility] Work Phone: Urea nitrogen/Creatinine [Mass ratio] 14.8 mg/mg 10-20 [facility] Work Phone: Laboratory - Hematology and Cell countson 03-21-2022 Erythrocyte distribution width (RBC) [Entitic vol] 41.1 fL 35.1-43.9 [facility] Work Phone: Erythrocyte distribution width (RBC) [Ratio] 13.2 % 11.6-14.6 [facility] Work Phone: MCH (RBC) [Entitic mass] 29.1 pg 27.0-32.0 [facility] Work Phone: Nucleated RBC/100 WBC (Bld) [Ratio] 0 % 0-5 [facility] Work Phone: MCHC Auto (RBC) [Mass/Vol]on 03-21-2022 MCHC (RBC) [Mass/Vol] 33.6 g/dL 32-36 [facility] Work Phone: No Panel Informationon 03-21 Estimated GFR (MDRD) Amer 113 mL/min >60 [facility] Work Phone: Comment on above: GFR Calc Estimated GFR (MDRD) Non-Af Amer 94 mL/min >60 [facility] Work Phone: Comment on above: Non- GFR Calc Platelets bldon 03-21-2022 Platelets (Bld) [#/Vol] 226 10*3/uL 150-450 [facility] Work Phone: Segmented neutrophils/100 WB C Auto (Bld)on 03-21-2022 Segmented neutrophils/100 WBC (Bld) 63.7 % 47-70 [facility] Work Phone: Serum or plasma albumin bang urement (mass/volume)on 03-21-2022 Albumin [Mass/Vol] 3.9 g/dL 3.2-5.0 [facility] Work Phone: Serum or plasma albumin/glob ulin mass ratioon 03-21-2022 Albumin/Globulin [Mass ratio] 1.1 {ratio} 0.9-2.4 [facility] Work Phone: Serum or plasma calcium bang urement (mass/volume)on 03-21-2022 Calcium [Mass/Vol] 9.0 mg/dL 8.5-10.1 [facility] Work Phone: Serum or plasma cholesterol in HDL measurement (mass/volume)on 03-21-2022 Cholesterol in HDL [Mass/Vol] 56 mg/dL >40 [facility] Work Phone: Comment on above: The drugs N-Acetylcy steine and Metamizole may falsely depress this assay. Reference Range HDL <40 mg/dL Low HDL Cholesterol HDL >or= 60 mg/dL High HDL Cholesterol Serum or plasma cholesterol in VLDL measurement (mass/volume)on 03-21-2022 Cholesterol in VLDL [Mass/Vol] 9 mg/dL 5-40 [facility] Work Phone: Serum or plasma creatinine m easurement (mass/volume)on 03-21-2022 Creatinine [Mass/Vol] 0.88 mg/dL 0.70-1.30 [facility] Work Phone: Comment on above: The validity of the calculated GFR & GFRAA in patients over 70 years has not been determined. Clinical correlation is essential. Serum or plasma low density lipoprotein (LDL) cholesterol measurement (mass/volume)on 03-21-2022 Cholesterol in LDL [Mass/Vol] 80 mg/dL 0-130 [facility] Work Phone: Serum or plasma urea nitroge n measurement (mass/volume)on 03-21-2022 Urea nitrogen [Mass/Vol] 13 mg/dL 7-18 [facility] Work Phone: Serum or plasma uric acid me asurement (mass/volume)on 03-21-2022 Urate [Mass/Vol] 6.1 mg/dL 3.5-7.2 [facility] Work Phone: Comment on above: The drugs N-Acetylcy steine and Metamizole may falsely depress this assay. Thin prep Papanicolaou smear with manual screeningon 03-21-2022 Thin prep Papanicolaou smear with manual screening 17 U/L 15-37 [facility] Work Phone: Thin prep Papanicolaou smear with manual screening 7 5-15 [facility] Work Phone: Thin prep Papanicolaou smear with manual screening 143 U/L 87-241 [facility] Work Phone: Absolute lymphocyte counton 11-01-2021 Lymphocytes Auto (Unsp spec) [#/Vol] 1.10 10*3/uL 0.83-4.51 [facility] Work Phone: Basophil percentageon 2021 Basophil percentage 0-5 SEEN /hpf 0-5 [facility] Work Phone: Basophils/100 WBC (Bld) 0.6 % 0-1 [facility] Work Phone: Bilirubin [Mass/Vol] 1.10 mg/dL 0.20-1.00 [facility] Work Phone: Comment on above: For patients on eltr ombopag therapy, use of Dimension Gibson TBIL is not recommended. Chloride [Moles/Vol] 106 mmol/L 98-107 [facility] Work Phone: Eosinophils/100 WBC (Bld) 1.8 % 0-5 [facility] Work Phone: Glucose [Mass/Vol] 179 mg/dL 74-106 [facility] Work Phone: Comment on above: Fasting Glucose resu lt greater than or equal to 126 mg/dL suggests DIABETES MELLITUS per A.D.A. criteria. Neutrophils (Bld) [#/Vol] 3.4 10*3/uL 2.0-7.7 [facility] Work Phone: Neutrophils/100 WBC (Bld) 69.5 % 47-70 [facility] Work Phone: Potassium [Moles/Vol] 3.9 mmol/L 3.5-5.1 [facility] Work Phone: Protein [Mass/Vol] 7.8 g/dL 6.4-8.2 [facility] Work Phone: Sodium [Moles/Vol] 143 mmol/L 136-145 [facility] Work Phone: WBC (Bld) [#/Vol] 4.9 10*3/uL 4.4-11.0 [facility] Work Phone: Bilirubin Test strip Ql (U)o n 11-01-2021 Bilirubin Ql (U) Negative Negative [facility] Work Phone: Blood erythrocytes count (nu mber/volume)on 11-01-2021 RBC (Bld) [#/Vol] 5.19 10*6/uL 4.6-6.2 [facility] Work Phone: Blood hemoglobin measurement (mass/volume)on 11-01-2021 Hemoglobin (Bld) [Mass/Vol] 15.3 g/dL 13.0-16.5 [facility] Work Phone: Blood lymphocytes/100 leukoc yteson 11-01-2021 Lymphocytes/100 WBC (Bld) 22.4 % 19-41 [facility] Work Phone: Blood monocytes/100 leukocyt eson 11-01-2021 Monocytes/100 WBC (Bld) 5.5 % 0-10 [facility] Work Phone: Blood platelet mean volumeon 11-01-2021 Platelet mean volume (Bld) [Entitic vol] 9.7 fL 6.2-12.0 [facility] Work Phone: Determination of erythrocyte mean corpuscular volume (MCV)on 11-01-2021 MCV (RBC) [Entitic vol] 89.4 fL 80-94 [facility] Work Phone: Hematocrit Auto (Bld) [Volum e fraction]on 11-01-2021 Hematocrit (Bld) [Volume fraction] 46.4 % 40-54 [facility] Work Phone: Ketones Test strip Ql (U)on 11-01-2021 Ketones Ql (U) Negative Negative [facility] Work Phone: Laboratory - Chemistry and C hemistry - challengeon 11-01-2021 ALP [Catalytic activity/Vol] 75 U/L 45-117 [facility] Work Phone: ALT [Catalytic activity/Vol] 30 U/L 16-61 [facility] Work Phone: CO2 [Moles/Vol] 32.0 mmol/L 21.0-32.0 [facility] Work Phone: Globulin (S) [Mass/Vol] 3.5 g/dL 2.2-4.2 [facility] Work Phone: Urea nitrogen/Creatinine [Mass ratio] 12.7 mg/mg 10-20 [facility] Work Phone: Laboratory - Hematology and Cell countson 11-01-2021 Erythrocyte distribution width (RBC) [Entitic vol] 42.9 fL 35.1-43.9 [facility] Work Phone: Erythrocyte distribution width (RBC) [Ratio] 13.1 % 11.6-14.6 [facility] Work Phone: Immature granulocytes/100 WBC (Bld) 0.200 % 0.0-0.9 [facility] Work Phone: Comment on above: IG% - Immature Granu locytes (promyelocytes, myelocytes and metamyelocytes) > 1% indicates that a LEFT SHIFT is Present. MCH (RBC) [Entitic mass] 29.5 pg 27.0-32.0 [facility] Work Phone: Nucleated RBC/100 WBC (Bld) [Ratio] 0 % 0-5 [facility] Work Phone: MCHC Auto (RBC) [Mass/Vol]on 11-01-2021 MCHC (RBC) [Mass/Vol] 33.0 g/dL 32-36 [facility] Work Phone: Mucus LM Ql (Urine sed)on Mucus Ql (Urine sed) 0 SEEN /hpf [facility] Work Phone: Nitrite Test strip Ql (U)on 11-01-2021 Nitrite Ql (U) Negative Negative [facility] Work Phone: No Panel Informationon 11-01 Estimated Creatinine Clearance Calc 82.03 ml/min [facility] Work Phone: Estimated GFR (MDRD) Amer 96 mL/min >60 [facility] Work Phone: Comment on above: GFR Calc Estimated GFR (MDRD) Non-Af Amer 79 mL/min >60 [facility] Work Phone: Comment on above: Non- GFR Calc Platelets bldon 11-01-2021 Platelets (Bld) [#/Vol] 221 10*3/uL 150-450 [facility] Work Phone: Protein Test strip Ql (U)on 11-01-2021 Protein Ql (U) Negative Negative [facility] Work Phone: Serum or plasma albumin bang urement (mass/volume)on 11-01-2021 Albumin [Mass/Vol] 4.3 g/dL 3.2-5.0 [facility] Work Phone: Serum or plasma albumin/glob ulin mass ratioon 11-01-2021 Albumin/Globulin [Mass ratio] 1.2 {ratio} 0.9-2.4 [facility] Work Phone: Serum or plasma calcium bang urement (mass/volume)on 11-01-2021 Calcium [Mass/Vol] 9.1 mg/dL 8.5-10.1 [facility] Work Phone: Serum or plasma creatinine m easurement (mass/volume)on 11-01-2021 Creatinine [Mass/Vol] 1.02 mg/dL 0.70-1.30 [facility] Work Phone: Comment on above: The validity of the calculated GFR & GFRAA in patients over 70 years has not been determined. Clinical correlation is essential. Serum or plasma urea nitroge n measurement (mass/volume)on 11-01-2021 Urea nitrogen [Mass/Vol] 13 mg/dL 7-18 [facility] Work Phone: Squamous epithelial cells de tection in urine sediment by light microscopyon 11-01-2021 Epithelial cells.squamous LM Ql (Urine sed) 0-5 SEEN /hpf 0-5 [facility] Work Phone: Thin prep Papanicolaou smear with manual screeningon 11-01-2021 Thin prep Papanicolaou smear with manual screening 17 U/L 15-37 [facility] Work Phone: Thin prep Papanicolaou smear with manual screening 5 5-15 [facility] Work Phone: Urine blood detectionon 10-17 RBC Ql (U) 250 /ul Negative [facility] Work Phone: RBC Ql (U) 50-100 SEEN /hpf 0-5 [facility] Work Phone: Urine clarityon 11-01-2021 Clarity (U) Sl. Cloudy Clear [facility] Work Phone: Urine color determinationon 11-01-2021 Color (U) Yellow Yellow [facility] Work Phone: Urine glucose detectionon Glucose Ql (U) Normal mg/dl Normal [facility] Work Phone: Urine leukocyte esterase det ection by dipstickon 11-01-2021 Leukocyte esterase Test strip Ql (U) Negative Negative [facility] Work Phone: Urine pHon 11-01-2021 pH (U) 7.0 [pH] 5.0 - 8.0 [facility] Work Phone: Urine sediment bacteria coun t by microscopy (number/high power field)on 11-01-2021 Bacteria LM.HPF (Urine sed) [#/Area] 0 /[HPF] None Seen [facility] Work Phone: Urine specific gravity measu rementon 11-01-2021 Specific gravity (U) [Rel density] 1.010 1.002-1.030 [facility] Work Phone: Urobilinogen Auto test strip Ql (U)on 11-01-2021 Urobilinogen Ql (U) Normal mg/dl Normal [facility] Work Phone: Office Visiton 11-21-2016 Documentation of current medications (procedure) Done Invalid Interpretation Code [facility] Work Phone: Protein mass conc Done [facility] Work Phone: Tobacco smoking status NHIS Former smoker [facility] Work Phone: Tobacco use [facility] Former smoker Invalid Interpretation Code [facility] Work Phone: Office Visiton 10-27-2016 Documentation of current medications (procedure) Done Invalid Interpretation Code [facility] Work Phone: Tobacco use [facility] Former smoker Invalid Interpretation Code [facility] Work Phone: Office Visiton 08-31-2016 Documentation of current medications (procedure) Done Invalid Interpretation Code [facility] Work Phone: Tobacco use [facility] Former smoker Invalid Interpretation Code [facility] Work Phone: Vital Signs Date Time Vital Sign Value Performing Clinician Facility 08-22-2024 09:20-0500 Body height 177.[address] Roney Das MD Work Phone: [facility] 08-22-2024 09:20-0500 Body mass index (BMI) [Ratio] 31.3 kg/m2 Dr. Roney Das MD Work Phone: [facility] 08-22-2024 09:20-0500 Body weight 99.[address] Roney Das MD Work Phone: [facility] 06-27-2023 14:30-0500 Body height 177.[address] Roney Das Work Phone: [facility] 06-14-2023 17:05-0500 Body temperature 97.9 [degF] Dr. Roney Das Work Phone: [facility] 06-14-2023 17:05-0500 Diastolic blood pressure 94 mm[Hg] Dr. Roney Das Work Phone: [facility] 06-14-2023 17:05-0500 Heart rate 79 /min Dr. Roney Das Work Phone: [facility] 06-14-2023 17:05-0500 Respiratory rate 16 /min Dr. Roney Das Work Phone: [facility] 06-14-2023 17:05-0500 SaO2% (BldA) [Mass fraction] 96 % Dr. Roney Das Work Phone: [facility] 06-14-2023 17:05-0500 Systolic blood pressure 158 mm[Hg] Dr. Roney Das Work Phone: [facility] 06-14-2023 11:07-0500 Body height 177.[address] Roney Das Work Phone: [facility] 06-14-2023 11:07-0500 Body mass index (BMI) [Ratio] 28.7 kg/m2 Dr. Roney Das Work Phone: [facility] 06-14-2023 11:07-0500 Body weight 90.[address] Roney Das Work Phone: [facility] 05-10-2023 08:08-0500 Body height 177.[address] Roney Das Work Phone: [facility] 11-21-2022 15:20-0400 Body height 177.8 cm [facility] 11-21-2022 15:20-0400 Body mass index (BMI) [Ratio] 28.4 kg/m2 [facility] 11-21-2022 15:20-0400 Body temperature 97 [degF] [facility] 11-21-2022 15:20-0400 Body weight 89.8 kg [facility] 11-21-2022 15:20-0400 Diastolic blood pressure 88 mm[Hg] [facility] 11-21-2022 15:20-0400 Heart rate 65 /min [facility] 11-21-2022 15:20-0400 Respiratory rate 14 /min [facility] 11-21-2022 15:20-0400 SaO2% (BldA) [Mass fraction] 98 % [facility] 11-21-2022 15:20-0400 Systolic blood pressure 143 mm[Hg] [facility] 06-27-2022 07:41-0500 Body temperature 100.9 [degF] Dr. Roney Das Work Phone: [facility] Work Phone: 06-27-2022 07:41-0500 Diastolic blood pressure 67 mm[Hg] Dr. Roney Das Work Phone: [facility] Work Phone: 06-27-2022 07:41-0500 Heart rate 82 /min Dr. Roney Das Work Phone: [facility] Work Phone: 06-27-2022 07:41-0500 Respiratory rate 16 /min Dr. Roney Das Work Phone: [facility] Work Phone: 06-27-2022 07:41-0500 SaO2% (BldA) [Mass fraction] 98 % Dr. Roney Das Work Phone: [facility] Work Phone: 06-27-2022 07:41-0500 Systolic blood pressure 125 mm[Hg] Dr. Roney Das Work Phone: [facility] Work Phone: 06-27-2022 06:08-0500 Body height 177.[address] Roney Das Work Phone: [facility] Work Phone: 06-27-2022 06:08-0500 Body mass index (BMI) [Ratio] 27.6 kg/m2 Dr. Roney Das Work Phone: [facility] Work Phone: 06-27-2022 06:08-0500 Body weight 87.[address] Roney Das Work Phone: [facility] Work Phone: 03-29-2022 10:50-0400 Body mass index (BMI) [Ratio] 27.5 kg/m2 Dr. Roney Das Work Phone: [facility] Work Phone: 03-29-2022 10:50-0400 Body weight 87.[address] Roney Das Work Phone: [facility] Work Phone: 03-16-2022 16:12-0400 Body height 179.[address] Roney Das Work Phone: [facility] Work Phone: 03-16-2022 16:12-0400 Body mass index (BMI) [Ratio] 27.7 kg/m2 Dr. Roney Das Work Phone: [facility] Work Phone: 03-16-2022 16:12-0400 Body temperature 98.5 [degF] Dr. Roney Das Work Phone: [facility] Work Phone: 03-16-2022 16:12-0400 Body weight 88.[address] Roney Das Work Phone: [facility] Work Phone: 03-16-2022 16:12-0400 Diastolic blood pressure 74 mm[Hg] Dr. Roney Das Work Phone: [facility] Work Phone: 03-16-2022 16:12-0400 Heart rate 63 /min Dr. Roney Das Work Phone: [facility] Work Phone: 03-16-2022 16:12-0400 Respiratory rate 14 /min Dr. Roney Das Work Phone: [facility] Work Phone: 03-16-2022 16:12-0400 SaO2% (BldA) [Mass fraction] 98 % Dr. Roney Das Work Phone: [facility] Work Phone: 03-16-2022 16:12-0400 Systolic blood pressure 124 mm[Hg] Dr. Roney Das Work Phone: [facility] Work Phone: 03-04-2022 09:12-0400 Body mass index (BMI) [Ratio] 28.4 kg/m2 Dr. Roney Das Work Phone: [facility] Work Phone: 03-04-2022 09:12-0400 Body weight 89.[address] Roney Das Work Phone: [facility] Work Phone: 11-12-2021 15:38-0400 Body temperature 97.7 [degF] [facility] Work Phone: 11-12-2021 15:38-0400 Diastolic blood pressure 82 mm[Hg] [facility] Work Phone: 11-12-2021 15:38-0400 Heart rate 59 /min [facility] Work Phone: 11-12-2021 15:38-0400 Respiratory rate 16 /min [facility] Work Phone: 11-12-2021 15:38-0400 SaO2% (BldA) [Mass fraction] 99 % [facility] Work Phone: 11-12-2021 15:38-0400 Systolic blood pressure 143 mm[Hg] [facility] Work Phone: 11-12-2021 12:35-0400 Body height 180.34 cm [facility] Work Phone: 11-12-2021 12:35-0400 Body mass index (BMI) [Ratio] 26.7 kg/m2 [facility] Work Phone: 11-12-2021 12:35-0400 Body weight 86.9 kg [facility] Work Phone: 11-01-2021 15:36-0400 Heart rate 62 /min [facility] Work Phone: 11-01-2021 15:36-0400 Respiratory rate 17 /min [facility] Work Phone: 11-01-2021 15:36-0400 SaO2% (BldA) [Mass fraction] 98 % [facility] Work Phone: 11-01-2021 13:08-0400 Body height 180.34 cm [facility] Work Phone: 11-01-2021 13:08-0400 Body mass index (BMI) [Ratio] 27.3 kg/m2 [facility] Work Phone: 11-01-2021 13:08-0400 Body temperature 97 [degF] [facility] Work Phone: 11-01-2021 13:08-0400 Body weight 88.76 kg [facility] Work Phone: 11-01-2021 13:08-0400 Diastolic blood pressure 102 mm[Hg] [facility] Work Phone: 11-01-2021 13:08-0400 Systolic blood pressure 174 mm[Hg] [facility] Work Phone: Encounters Encounter Date Encounter Type Care Provider Facility Start: 01-06-2025 ambulatory [facility] Facility:[facility] Start: 08-22-2024 End: 08-22-[address] Ramana Zamora MD -[facility] Work Phone: Start: 08-22-2024 End: 08-22-2024 ambulatory Ramana Zamora Facility:[facility] Start: 08-07-2024 End: 08-07-[address] Rnoey Das MD Work Phone: [facility] Work Phone: Start: 08-07-2024 End: 08-07-[address] Ramana Zamora MD -Physical Therapy Work Phone: Start: 07-22-2024 End: 07-22-[address] Ramana Zamora MD -[facility] Work Phone: Start: 07-22-2024 End: 07-22-2024 ambulatory Roney Pippa Facility:[facility] Start: 06-24-2024 End: 06-24-2024 ambulatory Roney Pippa Facility:[facility] Start: 06-10-2024 End: 06-10-2024 ambulatory Ramana Mollison Facility:[facility] Start: 06-07-2024 ambulatory Ramana Mollison Facility :[facility] Start: 06-07-2024 End: 06-07-2024 ambulatory Roney Pippa Facility:[facility] Start: 06-04-2024 End: 06-04-2024 ambulatory Ubaldo Copeland Facility:[facility] Start: 04-17-2024 ambulatory Roney Pippa Facility:[facility] Start: 02-29-2024 End: 02-29-2024 ambulatory Roney Das Facility:[facility] Start: 02-26-2024 End: 02-26-2024 ambulatory Lizzy Wero Robledo Facility:[facility] Start: 10-09-2023 End: 10-09-[address] Roney Das Work Phone: [facility] Work Phone: Start: 10-09-2023 End: 10-09-[address] Roney Das Work Phone: [facility]-Physical Therapy Work Phone: Start: 09-04-2023 End: 09-04-[address] Roney Das Work Phone: [facility] Work Phone: Start: 07-25-2023 End: 07-25-[address] Roney Das Work Phone: [facility] Work Phone: Start: 06-27-2023 End: 06-27-[address] Roney Das Work Phone: [facility] Work Phone: Start: 06-16-2023 End: 06-16-[address] Roney Das Work Phone: [facility] Work Phone: Start: 06-14-2023 Non-patient / Non-visit Dr. Marta Das Work Phone: [facility] Start: 06-14-2023 End: 06-14-2023 Admission to same day surgery center Dr. Roney Das Work Phone: [facility] Start: 06-14-2023 End: 06-14-[address] Roney Das Work Phone: [facility] Work Phone: Start: 05-30-2023 End: 05-30-2023 Non-patient / Non-visit Dr. Roney Das Work Phone: [facility] Work Phone: Start: 05-10-2023 End: 05-10-[address] Roney Das Work Phone: [facility] Work Phone: Start: 05-04-2023 End: 05-04-[address] Roney Das Work Phone: [facility] Work Phone: Start: 05-04-2023 End: 05-04-[address] Roney Das Work Phone: [facility] Work Phone: Start: 03-22-2023 End: 03-22-[address] Roney Das Work Phone: [facility] Work Phone: Start: 03-22-2023 End: 03-22-[address] Roney Das Work Phone: [facility]-Physical Therapy Work Phone: Start: 03-22-[address] Kamlesh Das Work Phone: [facility]-Physical Therapy Work Phone: Start: 02-17-2023 Registered Recurring [facility] Work Phone: Start: 02-15-2023 End: 02-15-2023 ambulatory [facility] Work Phone: Start: 02-15-2023 End: 02-15-2023 Patient encounter procedure [facility]Laboratory Work Phone: Start: 02-06-2023 End: 02-06-2023 ambulatory [facility] Work Phone: Start: 02-06-2023 End: 02-06-2023 Patient encounter procedure [facility] Work Phone: Start: 02-06-2023 Registered Referred [facility] Start: 12-07-2022 End: 12-07-2022 ambulatory [facility] Work Phone: Start: 12-07-2022 End: 12-07-2022 Patient encounter procedure [facility] Start: 11-21-2022 End: 11-21-2022 Emergency department patient visit [facility]-Emergency Department Start: 07-28-2022 Registered Referred [facility] Start: 06-27-2022 Non-patient / Non-visit Dr. Marta Das Work Phone: [facility] Start: 06-27-2022 End: 06-27-2022 Admission to same day surgery center Dr. Roney Das Work Phone: [facility]-Endoscopy Start: 06-27-2022 End: 06-27-[address] Roney Das Work Phone: [facility] Work Phone: Start: 03-29-2022 Non-patient / Non-visit Dr. Marta Das Work Phone: [facility] Start: 03-21-2022 End: 03-21-[address] Roney Das Work Phone: [facility] Start: 03-21-[address] Roney Das Work Phone: [facility] Start: 03-18-2022 End: 03-18-[address] Roney Das Work Phone: [facility] Work Phone: Start: 03-18-2022 End: 03-18-[address] Roney Das Work Phone: [facility] Start: 03-16-2022 End: 03-16-[address] Roney Das Work Phone: [facility] Start: 03-04-2022 End: 03-04-[address] Roney Das Work Phone: [facility] Start: 11-12-2021 End: 11-12-2021 Admission to same day surgery center [facility] Start: 11-01-2021 End: 11-01-2021 Emergency department patient visit [facility]Emergency Department Procedures Date Procedure Procedure Detail Performing Clinician Start: 06-14-2023 Procedure on shoulde r joint Dr. Roney Das Work Phone: Start: 05-04-2023 MRI of joint of lowe r extremity Dr. Roney Das Work Phone: Start: 11-21-2022 Plain X-ray of shoulder Start: 06-27-[address] Roney Das Work Phone: Start: 03-18-2022 MRI of lumbar spine Dr. Roney Das Work Phone: Start: 03-04-2022 X-ray of lumbar spin e, two or three views Dr. Roney Das Work Phone: Start: 11-12-2021 Diagnostic radiograp hy of abdomen Start: 11-01-2021 CT of abdomen and pe lvis without contrast Plan of Treatment Date Care Activity Detail Author Start: 09-04-2023 Patient referral [facility] Work Phone: Start: 06-14-2023 Notification of physician [facility] Start: 06-14-2023 Patient discharge [facility] Start: 06-14-2023 Application of ice collar, cap or bag [facility] Start: 06-14-2023 Assessment of risk of venous thromboembolism [facility] Start: 06-14-2023 Catheterization of vein [facility] Start: 06-14-2023 Deep breathing and coughing exercises [facility] Start: 06-14-2023 Following clinical pathway protocol [facility] Start: 06-14-2023 Incentive spirometry [facility] Start: 06-14-2023 Introduction of urinary catheter [facility] Start: 06-14-2023 Patient education [facility] Start: 06-14-2023 Taking patient vital signs [facility] Start: 06-14-2023 Vital signs measurements [facility] Start: 06-14-2023 End: 06-14-2023 [facility] Start: 06-14-2023 Medication education [facility] Start: 12-07-2022 Procedure [facility] Start: 06-27-2022 Patient discharge [facility] Work Phone: Start: 11-12-2021 Anes transurethral w/urethrocystoscopy nos ANESTH BLADDER SURGERY [facility] Work Phone: Start: 11-12-2021 Cysto bladder w/ureteral catheterization CYSTOSCOPY & URETER CATHETER [facility] Work Phone: Start: 11-12-2021 Ambulation without limitation [facility] Work Phone: Start: 11-12-2021 Medication education [facility] Work Phone: Start: 11-12-2021 Patient discharge [facility] Work Phone: Start: 11-12-2021 Taking patient vital signs [facility] Work Phone: Start: 11-12-2021 [facility] Work Phone: Start: 10-27-2016 End: 10-27-2016 Appointment Appointment [facility] Work Phone: Start: 10-27-2016 End: 10-27-2016 Mri joint upr extrem w/o dye MRI Joint Upper Extremity [facility] Work Phone: Start: 09-07-2016 End: 09-07-2016 Physical Therapy [facility], [address] [place] [address], [address] [facility] Work Phone: Start: 08-31-2016 End: 08-31-2016 X-ray exam of shoulder X-Ray, Shoulder [facility] Work Phone: Colonoscopy [facility] Work Phone: Electrocardiographic procedure [facility] Patient Education [facility] Work Phone: Patient referral [facility] Work Phone: XR Abdomen Single view [facility] Work Phone: Immunizations Immunization Date Immunization Notes Care Provider [facility] 04-13-2023 Covid (Spikevax) Dr. Roney Das Work Phone: [facility] 03-16-2023 influenza, injectabl e, quadrivalent, preservative free Dr. Roney Das Work Phone: [facility] 03-21-2022 influenza, injectabl e, quadrivalent, preservative free Dr. Roney Das Work Phone: [facility] 03-21-2022 influenza, seasonal, injectable Dr. Roney Das Work Phone: [facility] 03-04-2022 [facility] Bivale nt Booster Dr. Roney Das Work Phone: [facility] 04-21-2021 [facility] (Moderna) [facility] 04-05-2021 influenza, injectabl e, quadrivalent, preservative free Dr. Roney Das Work Phone: [facility] 04-05-2021 influenza, seasonal, injectable [facility] 08-04-2020 [facility] (Moderna) [facility] 07-07-2020 [facility] (Moderna) [facility] 03-17-2020 influenza, injectabl e, quadrivalent, preservative free Dr. Roney Das Work Phone: [facility] 03-17-2020 influenza, seasonal, injectable [facility] 05-13-2019 influenza, injectabl e, quadrivalent, preservative free Dr. Roney Das Work Phone: [facility] 05-13-2019 influenza, seasonal, injectable [facility] 04-25-2018 influenza, injectabl e, quadrivalent, preservative free Dr. Roney Das Work Phone: [facility] 04-25-2018 influenza, seasonal, injectable [facility] 04-26-2017 influenza, injectabl e, quadrivalent, preservative free Dr. Roney Das Work Phone: [facility] 04-26-2017 influenza, seasonal, injectable [facility] 03-18-2016 influenza, injectabl e, quadrivalent, preservative free Dr. Roney Das Work Phone: [facility] 03-18-2016 influenza, seasonal, injectable [facility] 03-18-2015 influenza, injectabl e, quadrivalent, preservative free Dr. Roney Das Work Phone: [facility] 03-18-2015 influenza, seasonal, injectable [facility] 03-19-2014 influenza, injectabl e, quadrivalent, preservative free Dr. Roney aDs Work Phone: [facility] 03-19-2014 influenza, seasonal, injectable [facility] 11-07-2013 measles, mumps and rubella virus vaccine [facility] 06-27-2013 Influenza virus vaccine [facility] Payers Date Payer Category Payer Self-pay [phone] [id number] 2024 Private Health Insurance [id number] 2024 Self-pay [id number] 2024 Unknown 2016 Unknown [id number] Unknown [facility] [id number] Unknown [id number] Unknown [id number] Unknown [id number] Unknown [id number] Unknown [id number] [id number] Unknown [id number] Unknown [id number] Unknown [id number] Unknown [id number] Unknown [id number] Unknown [id number] Unknown [id number] Unknown [id number] Social History Date Type Detail Facility Start: 11-01-2021 End: 09-04-2023 Tobacco smoking status RUST Unknown if ever smoked [facility] Start: 1960 Sex Assigned At Male [facility] Start: 05-27-2024 [facility] Medical Equipment Procedure Code Equipment Code Equipment Origin al Text Equipment Identifier Dates Arthroscopy, shoulder FIBERTAPE FDA Start: 06-14-2023 Arthroscopy, shoulder Tendon/ligament bone anchor, bioabsorbable ([id number] FDA Start: 06-14-2023 Arthroscopy, shoulder FIBERTAPE [id number] FDA Start: 06-14-2023 Arthroscopy, shoulder FIBERTAPE [id number] FDA Start: 06-14-2023 Arthroscopy, shoulder FIBERTAPE [id number] FDA Start: 06-14-2023 Arthroscopy, shoulder KIT,PROX TENODESIS FDA Start: 06-14-2023 Arthroscopy, shoulder Tendon/ligament bone anchor, non-bioabsorbable ([id number] FDA Start: 06-14-2023 Arthroscopy, shoulder FIBERTAPE FDA Start: 06-14-2023 Arthroscopy, shoulder FIBERTAPE [id number] FDA Start: 06-14-2023 Arthroscopy, shoulder FIBERTAPE [id number] FDA Start: 06-14-2023 Arthroscopy, shoulder FIBERTAPE [id number] FDA Start: 06-14-2023 Arthroscopy, shoulder KIT,PROX TENODESIS FDA Start: 06-14-2023 Arthroscopy, shoulder FIBERTAPE FDA Start: 06-14-2023 Arthroscopy, shoulder FIBERTAPE [id number] FDA Start: 06-14-2023 Arthroscopy, shoulder FIBERTAPE [id number] FDA Start: 06-14-2023 Arthroscopy, shoulder FIBERTAPE [id number] FDA Start: 06-14-2023 Arthroscopy, shoulder KIT,PROX TENODESIS FDA Start: 06-14-2023 Arthroscopy, shoulder 4.75 LOOP N TACK TENDESIS IMPLANT SYSTEM FDA Start: 06-07-2024 Arthroscopy, shoulder ANCHOR, 4.75 SWIVEL LOCK FDA Start: 06-07-2024 Arthroscopy, shoulder FIBERLINK [id number] FDA Start: 06-07-2024 Arthroscopy, shoulder FIBERLINK [id number] FDA Start: 06-07-2024 Arthroscopy, shoulder FIBERTAPE FDA Start: 06-07-2024 Arthroscopy, shoulder KNOTLESS TENSION TIGHT FDA Start: 06-07-2024 Goals Date Patient Goal Desired Activity /State Mental Status Date Assessment Result Facility 06-14-2023 Cognitive function Voice/Name [facility] Work Phone: 06-27-2022 Cognitive function Voice/Name;Touch/Joseki ng [facility] Work Phone: 11-12-2021 Cognitive function Voice/Name [facility] Work Phone: Clinical Notes 11-21-2022 to 11-12-2024 Note Date & Type Note Facility 11-12-2024 Discharge summary [facility] 11-12-2024 Discharge summary Note Date/Time November 12, 2024 4:13pm [facility] Physical Therapy [facility] [address] [place] [address] [address] [place] [address] / REHABILITATION SERVICES DISCHARGE SUMMARY MR#: [id number] Acct: [id number] Name: HARJIT CALVILLO Rep #: [id number] : 1960 64 From: Suzanne Beckford PT, ATC Referring Dr.: Dr. Ramana Zamora MD Status: REG RCR Insurance: [facility] [id number] [facility] [employer] Patient Information Patient Information: HARJIT CALVILLO was seen in my office for initial evaluation on 06/24/24. The following Plan of Care was established for this patient: POC Established Initial Frequency: 2-3x /Week Initial Duration: 6-8 weeks Anticipated Interventions Patient/Client Instruction: Educate patient on: Condition and Plan of Care For the Purpose of:: To improve self management Therapeutic Exercise to Include: Strength training, Flexibilty training, PassiveROM, Active ROM and Scapular Strength/Stabilization For the Purpose of:: To decrease pain, To increase ROM and To improve muscle performance and motor function Cryotherapy (ice pack, ice massage): Yes For the Purpose of:: To decrease pain Last Seen Last Seen: This patient was last seen in our office . Pertinent comments regarding their Physical therapy will appear below: Pt has not returned to [facility] is greater than 30 days and is discharged at this time. At this point I will be discontinuing this patient from physical therapy. I would be happy to see this patient again in the future if found appropriate by the physician. Thank you! Suzanne Beckford, PT, ATC Balance/Gait/Functional tests Balance/Special Test Scores Quick DASH Score: 9.0900 <Electronically signed by Suzanne Beckford PT, ATC> 11/12/24 1613 CC: Dr. Roney Das MD; Dr. Ramana Zamora MD ~ [facility] Signed [facility] Work Phone: 1(830) 182-990402-03-2025 Evaluation note* Diagnosis Onset Date Resolution Status Admit Date Partial tear of left subscapularis tendon acute July 9:47am Right rotator cuff tear acute F ebruary 2024 9:47am Partial tear of left subscapularis tendon acute August 22, 2024 9:03am Right rotator cuff tear acute M arch 2024 9:03am [facility] Work Phone: 1(489) 679-754012-20-2024 [facility] Medical Records Department [address] [place] [address] History Physical Exam 06/07/24 0707 MR#: [id number] Acct: [id number] Name: HARJIT CALVILLO Rep #: [id number] : 1960 63 From: Ramana Zamora MD PCP: Dr. Roney Das MD Status:REG [facility] Location: [place] [address] HPI - General HPI Narrative HARJIT CALVILLO, is a 63 M who presents for right shoulder arthroscopy, subacromial decompression, rotator cuff repair, biceps tenodesis. no changes to h and p. right shoulder marked. rab, post op instructions, narcotic counselling. ok to proceed. no further questions or concerns. MR#: [id number] Acct: [id number] Name: HARJIT CALVILLO Rep #: [id number] : 1960 Provider: Dr. Ramana Zamora MD Age/Sex: 63/M Location: [facility].ANJELICA Status: Signed Intake Vital Signs 02/01/2412:35 Height 5 ft 10 in Intake Visit Reasons: RIGHT SHOULDER Accompanied by: Self Is patient in pain?: Yes Pain scale (1-10): 8 Allergies orphenadrine citrate (From Norflex) Allergy (Severe, Verified 02/29/24 08:24) Hives, restricted airwaytamsulosin (From Flomax) Adverse Reaction (Verified 02/29/24 08:24) Urinary retention Medications ???Medication ???Instructions ???Recorded ???Confirmed ???Type lisinopril 10 mg tablet 20 mg PO DAILY 01/02/15 02/29/24 History amlodipine 10 mg tablet 5 mg PO QHS 12/08/20 02/29/24 History multivitamin with minerals 1 tab PO DAILY 12/08/20 02/29/24 History gabapentin 300 mg capsule 300 mg PO 4X/DAY 11/01/21 02/29/24 History tizanidine 4 mg capsule (Zanaflex) 4 mg PO BID 11/01/21 02/29/24 History tramadol 50 mg tablet 50 mg PO TID 11/01/21 02/29/24 History docusate sodium 50 mg capsule 50 mg PO DAILY 03/29/22 02/29/24 History saw palmetto 160 mg capsule 160 mg PO BID 05/10/23 02/29/24 History ascorbic acid (vitamin C) 500 mg 500 mg PO DAILY 05/29/23 02/29/24 History tablet (C-500) cyanocobalamin (B12)-cobamamide 1 camilo sublingual DAILY 05/29/23 02/29/24 History 5,000 mcg-100 mcg sublingual lozenge (B12) zinc 50 mg capsule 50 mg PO DAILY 05/29/23 02/29/24 History PFSH Medical History PONV (postoperative nausea and vomiting) History of diverticulitis Neuropathy Sciatic leg pain Partial tear of left subscapularis tendon Left rotator cuff tear Left shoulder pain History of epidural anesthesia Wears glasses Cancer Alcohol use Hematoma Arthritis Restless legs Back pain Former smoker CPAP (continuous positive airway pressure) dependence Leg cramps History of edema History of stress test Scoliosis deformity of spine Hypertension Surgical History Hx of cystoscopy History of colonoscopy History of lithotripsy Hx of toe surgery Hx of toe surgery Hx of excision of mass History of spinal fusion for scoliosis Hx of cholecystectomy Family History Mother Heart disease Diabetes type 2, uncontrolled S/P CABG x 4 GlaucomaFather Stage 4 malignant neoplasm of lung Social History household members: spouse Smoking Status: Former smoker alcohol intake: never HPI RIGHT SHOULDER Details: This documentation accurately reflects the service provided and the decisions made by me, Dr. Ramana Zamora MD 02/29/24 0806. Part of today???s visit was documented by [ ], acting as scribe. HARJIT CALVILLO is a 63 year old M here today for 3 months hx of right shoulder pain. dogs pulled on the leash and there was a pop. worse at night. lateral side. TX - ice. creams. at home strengthening with bands for 6 weeks. Supplemental Info [facility] Imaging Services [address] [place], [place] [id number] Upper Ext Joint Only(Routine) MR#: [id number] Acct: [id number] Name: HARJIT CALVILLO Rep #: [id number] : 1960 M 63 From: Robles Tinoco MD PCP: Dr. Roney Das MD Status: REG CLI Study: Upper Ext Joint Only(Routine) Date of Exam: 02/26/24 Exam# [id number] Ordering Dr: Lizzy Robledo COPING MACHINE OPERATOR-C STUDY: MRI RIGHT SHOULDER REASON FOR EXAM: Male, 63 years old. RIGHT SHOULDER PAIN TECHNIQUE: Standardized fat and water weighted pulse sequences were obtained in all 3 orthogonal planes. COMPARISON: None. FINDINGS: There is supraspinatus tendinosis with (more content not included)...[facility]04-22-2024 Discharge summary Author Suzanne Beckford [facility] October 09, 2023 4:25pm Note Date/Time October 09, 2023 4:2 5pm [facility] Physical Therapy [facility] [place] [id number] / REHABILITATION SERVICES DISCHARGE SUMMARY MR#: [id number] Acct: [id number] Name: HARJIT CALVILLO Rep #: [id number] : 1960 63 From: Suzanne Beckford PT, ATC Referring Dr.: Dr. Ramana Zamora MD Status: REG RCR Insurance: [facility] [employer] SELF PAY INSURANCE Discharge Summary D/C summary: It has been my pleasure to treat HARJIT CALVILLO referred by Dr. Ramana Zamora MD, with the diagnosis of L shoulder rot cuff repair with biceps tenodesis 06/14/23 for a total of 21 visit(s). Discharge Date: Please see the following information for a summary of their discharge status. Subjective Subjective: I am ready for discharge Pain L shoulder: Pain Intensity (Out of 10): 0 Overall Improvement % Improvement: 100 Objective Objective/Function: L shoulder pain 0/10 L shoulder ROM: flex= 150, abd= 165, ER= 80, IR= WNL L shoulder MMT: flex= 9, abd= 18, ER= 19, IR= 25 #F Pt is I with HEP Goals Goal 1:: Decrease L shoulder pain x 50% to aid with IADl's Goal Progress: Goal Met Goal 2:: Increase L shoulder flex and abd ROM x 30 degrees to aid with overhead lifting Goal Progress: Goal Met Goal 3:: Increase L shoulder strength to 90% of R shoulder strength to aid with return to work Goal Progress: Goal Met Goal 4:: I with HEP Goal Progress: Goal Met Plan Plan: Discharge to [facility] D/C Information d/c sentence: If there are questions or concerns regarding this patient's physical therapy, please feel free to call me at [phone]. Thank you for the referral of thispatient. Sincerely, Suzanne Beckford, PT, ATC Balance/Gait/Functional tests Balance/Special Test Scores Quick DASH Score: 2.2725 Improvement % Improvement: 100 <Electronically signed by Suzanne Beckford PT, ATC> 10/09/23 5163 CC: Dr. Roney Das MD; Dr. Ramana Zamora MD ~ [facility] Signed [facility] Work Phone: 1(123) 287-712212-27-2023 Discharge summary Author Ramana Zamora [facility] June 14, 2023 3:20pm Note Date/Time June 14, 2023 3:18pm [facility] Medical Records Department [address] [place] [address] Instructions for Home/Discharge Instructions 06/14/23 1517 MR#: [id number] Acct: [id number] Name: HARJIT CALVILLO Rep #:[id number] : 1960 62 From: Ramana Zamora MD PCP: Dr. Roney Das MD Status:REG SD C Discharge Instructions Diet Discharge Diet: No restrictions Activity May shower in (days): 14 Lifting Restrictions: pendulums, hand wrist elbow rom 4x/day, no lifting over 1 pound Additional Activity Instructions:: can remove sling at rest, recommend to sleep in sling Dressing / Incision Call your doctor if your incision/area has: Continuous Slow Oozing, Sudden Increased Bleeding, Increased Pain/ Swelling, Increased Redness, Foul Smelling Discharge and Swelling at the incision site Remove Dressing in: 2 days Follow Up Care Please Follow Up With: Ramana Zamora MD When: 2 days or 2 weeks Test Results: Test results from this visit will be discussed in further detail at your follow- up appointment, if applicable. Discharge Plan Admission Attending Provider: Ramana Zamora Primary Care Provider: Roney Das Instructions Patient Instructions: After Shoulder Arthroscopy Discharge Orders/Prescriptions Prescriptions: New oxycodone-acetaminophen [Endocet] 5-325 mg tablet 1 tab PO Q4H MDD 6 PRN (Reason: pain) 5 Days Qty: 30 0RF No Action docusate sodium 50 mg capsule 50 mg PO DAILY saw palmetto 160 mg capsule 160 mg PO BID Rx Instructions: give with meal/snack lisinopril 10 MG tablet 20 mg PO DAILY tramadol 50 mg tablet 50 mg PO TID gabapentin 300 mg capsule 300 mg PO 4X/DAY tizanidine [Zanaflex] 4 mg capsule 4 mg PO BID Rx Instructions: 1 TAB IN A.M.; 2 TAB QHS B12 5,000-100 mcg lozenge 1 camilo sublingual DAILY ascorbic acid (vitamin C) [C-500] 500 mg tablet 500 mg PO DAILY zinc 50 mg capsule 50 mg PO DAILY amlodipine 10 mg Tablet 5 mg PO QHS multivitamin with minerals Tablet 1 tab PO DAILY Other Ambulatory Orders: 12 Lead EKG (Routine) Timeframe: [id number] Location: None Selected Ordered By: Dr. Adriano Michele Referrals / Follow Up: Roney Das MD [Primary Care Provider] - Ramana Zamora MD [Med Staff - Active Staff] - Disposition Disposition (needs filled in before D/C Order can be placed): Home, Self Care 06/14/23 1520<Electronically signed by Ramana Zamora MD>Ramana Zamora MD CC: Dr. Roney Das MD ~ Signed [facility] Work Phone: 1(153) 609-619712-27-2023 Procedure [facility] 06-14-2023 History and physical note Author Ramana Zamora [facility] June 14, 2023 12:17pm Note Date/Time June 14, 2023 12:13pm [facility] Medical Records Department [address] [place] [address] History & Physical Exam 06/14/23 1212 MR#: [id number] Acct: [id number] Name: HARJIT CALVILLO Rep #:[id number] : 1960 62 From: Ramana Zamora MD PCP: Dr. Roney Das MD Status:REG SD C Location: [place] [address] HPI - General HPI Narrative HARJIT CALVILLO, is a 62 M who presents for left shoulder arthroscopy, subacromial decompression, rotator cuff repair, biceps tenodesis. no changes to h and p. post op instructions, rab and narcotic counselling. marked the shoulder. ok to proceed. MR#: [id number] Acct: [id number] Name: HARJIT CALVILLO Rep #: [id number] : 1960 Provider: Dr. Ramana Zamora MD Age/Sex: 62/M Location: [facility] [place].ANJELICA Status: Signed Intake Vital Signs 11/21/2314:20 05/10/2308:08 Height 5 ft 10 in 5 ft 10 in Intake Visit Reasons: LEFT SHOULDER Chief Complaint: left shoulder Is patient in pain?: Yes (left shoulder) Pain scale (1-10): 10 Allergies orphenadrine citrate [From Norflex] Allergy (Severe, Verified 05/10/23 14:02) Hives, restricted airwaytamsulosin [From Flomax] Adverse Reaction (Verified 05/10/23 14:02) Urinary retention Medications lisinopril 10 mg tablet 20 mg PO DAILY 01/02/15 [History Confirmed 11/21/22] amlodipine 10 mg tablet 5 mg PO QHS 12/08/20 [History Confirmed 11/21/22] multivitamin with minerals 1 tab PO DAILY 12/08/20 [History Confirmed 11/21/22] gabapentin 300 mg capsule 300 mg PO 4X/DAY 11/01/21 [History Confirmed 11/21/22] tizanidine 4 mg capsule (Zanaflex) 4 mg PO BID 11/01/21 [History Confirmed 11/21/22] tramadol 50 mg tablet 50 mg PO TID 11/01/21 [History Confirmed 11/21/22] docusate sodium 50 mg capsule 50 mg PO DAILY 03/29/22 [History Confirmed 11/21/22] saw palmetto 160 mg capsule 160 mg PO BID 05/10/23 [History Confirmed 05/10/23] PFSH Medical History Acute otitis media, left Alcohol use Arthritis Back pain Cancer CPAP (continuous positive airway pressure) dependence Former smoker Heartburn Hematoma History of edema History of epidural anesthesia History of stress test Hypertension Left rotator cuff tear Left shoulder pain Leg cramps Partial tear of left subscapularis tendon Restless legs Scoliosis deformity of spine Wears glasses Surgical History History of colonoscopy History of lithotripsy History of spinal fusion for scoliosis Hx of cholecystectomy Hx of cystoscopy Hx of excision of mass Hx of toe surgery Hx of toe surgery Family History Mother Heart disease Diabetes type 2, uncontrolled S/P CABG x 4 GlaucomaFather Stage 4 malignant neoplasm of lung Social History household members: spouse Smoking Status: Former smoker alcohol intake: never HPI LEFT SHOULDER Details: This documentation accurately reflects the service provided and the decisions made by me, Dr. Ramana Zamora MD 05/10/23 1312. Part of today?s visit was documented by [ ], acting as scribe. HARJIT CALVILLO is a 62 year old M here today for L shoulder eval ... fell December 20, onto the left shoulder, had bruising, 5 months ago, did some PT [facility], but not helping. was thinking about a US guided steroid injection. ordered an MRI. taking nsaids and not helping, lateral going down the arm, does wake him up at night. 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 03/28 pain. Ortho Exam General General: Yes no acute distress Neurologic: Yes alert and Yes oriented x3 Psychologic: Yes reasonable and appropriate Left Shoulder Skin/Wound: Yes CDI, No ecchymosis, No erythema and No swelling Testing: Yes Hawkin's, Yes Neer's, Yes Speed's, Yes TTP Biceps, No TTP AC Joint,No Drop Arm, Yes AROM-Forward Elevation 0-180, Yes AROM-External Rotation at side 0-60, Yes empty can, No Dumont, No cross arm, No scapular winging and No belly press normal Internal Rotation: Hip SHOULDER: normal motor and sens to axillary N, MRU and AIN/PIN. Hand warm well perfused normal radial pulse strength FE 4/5, ER / Supplemental Info [facility] Imaging Services [address] [place] [address] Shoulder min 2 Views MR#: [id number] Acct: [id number] Name: HARJIT CALVILLO Rep #: [id number] : 1960 M 62 From: Alonso Santos MD PCP: Dr. Roney Das MD Status: REG ER Study: Shoulder min 2 Views Date of Exam: 11/21/22 Exam# [id number] Ordering Dr: Romel Graf MD EXAM: XR LEFT SHOULDER COMPLETE, 2 OR MORE VIEWS CLINICAL INDICATION: Trauma TECHNIQUE: Two or more views of the left shoulder. COMPARISON: No relevant prior studies available. FINDINGS: BONES/JOINTS: Unremarkable. No acute fracture. No subluxation. Normal alignment. Preservation of the joint space. No sclerotic or destructive changes observed. SOFT TISSUES: Unremarkable. No soft tissue swelling or gas. No radiopaque foreign body. RAD/Shoulder min 2 Views IMPRESSION: Negative left shoulder x-rays. Electronically Signed: Alonso Santos MD at 16:32 EDT , [facility] Imaging Services [address] [place] [address] [place] [address] Upper Ext Joint Only(Routine) MR#: [id number] Acct: [id number] Name: HARJIT CALVILLO Rep #: [id number] : 1960 M 62 From: Robles Tinoco MD PCP: Dr. Roney Das MD Status: REG CLI Study: Upper Ext Joint Only(Routine) Date of Exam: 05/04/23 Exam# [id number] Ordering Dr: Brandyn Christie MD STUDY: MRI LEFT SHOULDER REASON FOR EXAM: Male, 62 years old. Left shoulder pain since December 2022. TECHNIQUE: Standardized fat and water weighted pulse sequences were obtained in all 3 orthogonal planes. COMPARISON: Left shoulder radiographs dated 11/21/2022. FINDINGS: There is a high-grade partial thickness (if not full-thickness) tear of the anterior distal supraspinatus tendon, overall measuring 1.3 cm in length (coronal T2 series 5 images 8-11) and 0.8 cm in width (sagittal T2 series 6 images 16-18). Normal infraspinatus tendon. There is a full-thickness tear of the distal subscapularis tendon, measuring 2.0 cm in length. Normal teres minor tendon. Normal supraspinatus muscle. Normal infraspinatus muscle. Normal subscapularis muscle. Normal teres minor muscle. There is a moderate glenohumeral joint effusion. Normal humeral head and visualized proximal humerus. Normal labrum. Normal capsulo-ligamentous complex. There is medial dislocation of the long biceps tendon. There is hypertrophic acromioclavicular arthrosis, with inferior osteophyte formation, with minimal effacement of the supraspinatus myotendinous junction (coronal PD series 4 images 10-11). There is a Type II morphology (curved), with a neutral orientation. There is a small amount of subacromial-subdeltoid bursal fluid. Normal visualized coracohumeral and coracoacromial ligaments. Normal quadrilateral space. Normal axillary space. Normal deltoid muscle. Normal trapezius muscle. MRI/Upper Ext Joint Only(Routine) IMPRESSION: 1.3 x 0.8 cm high-grade partial thickness (if not full-thickness) tear of the anterior distal supraspinatus tendon. Full-thickness tear of the distal subscapularis tendon, measuring 2.0 cm in length. Hypertrophic acromioclavicular arthrosis, with inferior osteophyte formation, with minimal effacement of the supraspinatus myotendinous junction. Moderate glenohumeral joint effusion. Small amount of subacromial-subdeltoid bursal fluid. Medial dislocation of the long biceps tendon. Electronically Signed: Robles Tinoco MD at 9:41 EST , Coding Level of Care Code Off vis,new,level 3 Diagnoses Left shoulder pain M25.512 Left rotator cuff tear M75.102 Partial tear of left subscapularis tendon S46.812A Assessment and Plan Assessment and Plan (1) Left shoulder pain: Status: Acute Plan: 62 yr M with L shoulder pain, supraspinatus tear, subscapularis partial tear with medial subluxation of biceps. Failed PT and conservative management over 5 months. Patient counseled on diagnosis prognosis different treatment options with this. Typically these tears do not heal they can get worse over time. The different options in terms of nonoperative treatment to be rest ice anti-inflammatories doing nothing activity modifications continue physical therapy or subacromial cortisone injection. Surgery would be in the form of left shoulder arthroscopy,subacromial decompression, rotator cuff repair, biceps tenodesis. I would likely fix both the supraspinatus as well as subscapularis tears and perform thebiceps tenodesis due to the medial subluxation and instability of the biceps. Iexplained this as well as recovery to the patient 2 to 3 weeks in a sling after 3 to 6 months before going back to heavy lifting and therapy after surgery. Described the risks and benefits pros and cons of each method of treatment the patient would like to go ahead with surgery. Signed the consent form for that as well as possible need for blood products. He understands no further questions or concerns. [facility] Medical History (Updated 05/29/23 @ 13:15 by Marivel Mosqueda) Alcohol use Arthritis Back pain Cancer CPAP (continuous positive airway pressure) dependence Former smoker Hematoma History of diverticulitis History of edema History of epidural anesthesia History of stress test Hypertension Left rotator cuff tear Left shoulder pain Leg cramps Neuropathy Partial tear of left subscapularis tendon PONV (postoperative nausea and vomiting) Restless legs Sciatic leg pain Scoliosis deformity of spine Wears glasses Home Medications lisinopril 10 mg tablet 20 mg PO DAILY 01/02/15 [History Last Taken 06/14/23] amlodipine 10 mg tablet 5 mg PO QHS 12/08/20 [History Last Taken 06/13/23] multivitamin with minerals 1 tab PO DAILY 12/08/20 [History Last Taken 06/13/23] gabapentin 300 mg capsule 300 mg PO 4X/DAY 11/01/21 [History Last Taken 06/13/23] tizanidine 4 mg capsule (Zanaflex) 4 mg PO BID 11/01/21 [History Last Taken 06/13/23] tramadol 50 mg tablet 50 mg PO TID 11/01/21 [History Last Taken 06/13/23] docusate sodium 50 mg capsule 50 mg PO DAILY 03/29/22 [History Last Taken 06/13/23] saw palmetto 160 mg capsule 160 mg PO BID 05/10/23 [History Last Taken 06/13/23] ascorbic acid (vitamin C) 500 mg tablet (C-500) 500 mg PO DAILY 05/29/23 [History Last Taken 06/13/23] cyanocobalamin (B12)-cobamamide 5,000 mcg-100 mcg sublingual lozenge (B12) 1 lozsublingual DAILY 05/29/23 [History Last Taken 06/13/23] zinc 50 mg capsule 50 mg PO DAILY 05/29/23 [History Last Taken 06/13/23] Allergy/AdvReac Type Severity Reaction Status Date / Time orphenadrine citrate Allergy Severe Hives, Verified 06/14/23 11:05 [From Norflex] restricted airway tamsulosin [From Flomax] AdvReac Urinary Verified 06/14/23 11:05 retention Family History Mother Heart disease Diabetes type 2, uncontrolled S/P CABG x 4 Glaucoma Father Stage 4 malignant neoplasm of lung Surgical History History of colonoscopy History of lithotripsy History of spinal fusion for scoliosis Hx of cholecystectomy Hx of cystoscopy Hx of excision of mass Hx of toe surgery Hx of toe surgery Social History household members: spouse Smoking Status: Former smoker alcohol intake: never Vital Signs Vital Signs Vital Signs: 06/14/23 11:07 06/14/23 11:07 Temperature 97 F L Temperature Source Temporal Pulse Rate 52 L Respiratory Rate 16 Respiratory Pattern Normal Blood Pressure 164/96 H Blood Pressure Mean 118 Blood Pressure Source Monitor Blood Pressure Position Semi-Fowlers Blood Pressure Location Right Arm Pulse Ox 98 Oxygen Delivery Method Room Air Weight Weight: 200 lb 6.403 oz Body Mass Index (BMI) 28.7 Results Lab / Micro Data 05/30/23 06:16 06/14/23 1217 <Electronically signed by Ramana Zamora MD> Cosigner Signature (if applicable): CC: Dr. Roney Das MD; Dr. Ramana Zamora MD~ Signed [facility] Work Phone: 1(388) 485-288506-05-[address] Graf [facility] November 21, 2022 4:48pm Note Date/Time November 21, 2022 3:33p m [facility] Medical Records Department [address] [place] [address] Emergency Department Summary 11/21/22 MR#: [id number] Acct: [id number] Name: HARJIT CALVILLO Rep #:[id number] : 1960 62 From: Romel Graf MD PCP: Dr. Roney Das MD Status:REG ER Location: ED HPI History of Present Illness Chief Complaint: Upper Extremity Injury Informant: patient Narrative Narrative: Patient fell and hurt his left shoulder. Patient was walking on a slope. Dog pulled on him. He fell into the slope ontohis left shoulder. He really did not try to brace himself because of the distance involved. He states it did not hurt that much at first but within 2 days he had bruising down in his arm. He still has discomfort on the left shoulder and it is worsened if he lays on that side. He is able to move it but it is somewhat sore. No numbness tingling or weakness. No other areas of bruising. He is not on any blood thinners. No trouble breathing. No numbness or tingling. He is right-hand dominant. [facility] Medical History Acute otitis media, left Alcohol use Arthritis Back pain Cancer CPAP (continuous positive airway pressure) dependence Former smoker Heartburn Hematoma History of edema History of epidural anesthesia History of stress test Hypertension Leg cramps Restless legs Scoliosis deformity of spine Wears glasses Home Medications lisinopril 10 mg tablet 20 mg PO DAILY 01/02/15 [History Last Taken 11/12/21] amlodipine 10 mg tablet 5 mg PO QHS 12/08/20 [History Last Taken Unknown] multivitamin with minerals 1 tab PO DAILY 12/08/20 [History Last Taken Unknown] gabapentin 300 mg capsule 300 mg PO 4X/DAY 11/01/21 [History Last Taken 11/12/21] tizanidine 4 mg capsule (Zanaflex) 4 mg PO BID 11/01/21 [History Last Taken Unknown] tramadol 50 mg tablet 50 mg PO TID 11/01/21 [History Last Taken 11/12/21] docusate sodium 50 mg capsule 50 mg PO DAILY 03/29/22 [History Last Taken Unknown] Allergy/AdvReac Type Severity Reaction Status Date / Time orphenadrine citrate Allergy Severe Hives, Verified 11/21/22 15:20 [From Norflex] restricted airway tamsulosin [From Flomax] AdvReac Urinary Verified 11/21/22 15:20 retention Family History Mother Heart disease Diabetes type 2, uncontrolled S/P CABG x 4 Glaucoma Father Stage 4 malignant neoplasm of lung Surgical History History of colonoscopy History of lithotripsy History of spinal fusion for scoliosis Hx of cholecystectomy Hx of cystoscopy Hx of excision of mass Hx of toe surgery Hx of toe surgery Social History household members: spouse Smoking Status: Former smoker alcohol intake: never ROS ROS ED Constitutional Constitutional ED: Denies chills or fever(s) ENT ENT ED: Denies rhinorrhea or sore throat Cardiovascular Cardiovascular: Denies chest pain, palpitations or racing heartbeat Respiratory/Chest Respiratory/Chest: Denies cough or dyspnea Gastrointestinal Gastrointestinal: Denies vomiting Musculoskeletal Musculoskeletal: Reports other Details: See history of present illness ; Denies neck pain Integumentary Reports other Details: Bruising but no laceration or abrasion. ; Denies Abrasions Neurologic Neurologic: Denies headache(s), paresthesias or weakness Hematologic/Lymphatic Hematologic/Lymphatic: Denies easy bleeding or easy bruising EXAM Physical Exam Narrative Exam Narrative: Patient awake alert no acute distress sitting comfortably on bed. HEENT shows no sign of trauma. Neck history range of motion no tenderness no bruising up on the neck. Lungs are clear bilaterally. No chest wall tenderness. No bruising on the chest wall. No pain with a deep breath. No asymmetry of breath sounds or subcutaneous air. Heart is regular. No murmur gallop or rub. Abdomen soft nontender Extremities do show some mild tenderness at the supraspinatus area on the scapula. He has some mild nonfocal tenderness around the shoulder joint. But alittle bit below this mostly on the medial aspect he has some bruising that has tracked down due to gravity. The bruising actually goes down to and crosses theelbow slightly on the medial aspect. But those areas are not at all tender. The discomfort he has is really up in the shoulder itself. 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 Neurologically has normal strength sensation. Const Vital Signs: 11/21/22 15:20 Temperature 97 F L Temperature Source Temporal Pulse Rate 65 Respiratory Rate 14 Blood Pressure 143/88 H Blood Pressure Mean 106 Pulse Ox 98 Oxygen Delivery Method Room Air MDM MDM MDM Narrative Medical decision making narrative: My independent interpretation of 4 images of the left shoulder show prior spinalsurgery but no sign of acute fracture or dislocation. Final reading urology is similar. We discussed the findings with the patient. We discussed range of motion and follow-up. Discharge Plan Triage Chief Complaint: Upper Extremity Injury ED Provider: Romel Graf Dx/Rx/DC Orders Clinical Impression: Contusion of left shoulder, Fall from slipping Prescriptions: No Action docusate sodium 50 mg capsule 50 mg PO DAILY lisinopril 10 MG tablet 20 mg PO DAILY tramadol 50 mg tablet 50 mg PO TID gabapentin 300 mg capsule 300 mg PO 4X/DAY tizanidine [Zanaflex] 4 mg capsule 4 mg PO BID amlodipine 10 mg Tablet 5 mg PO QHS multivitamin with minerals Tablet 1 tab PO DAILY Primary Care Provider: Roney Das Referrals: Roney Das MD [Primary Care Provider] - 1 Week if not improving Activity Restrictions/Additional Instructions: Range of motion activity as discussed. Ice, rest can also add heat. Disposition Disposition: Home, Self Care What to do if you have Problems For any increased pain, shortness of breath, bleeding, nausea or vomiting, chestpain, or any unexpected problems, contact your Primary Care Provider. Call [facility] ([phone]) or report to the closest Emergency Room. Call 911 if necessary. 11/21/22 2069 <Electronically signed by Romel Graf MD> Cosigner Signature (if applicable): CC: Dr. Roney Das MD ~ Signed [facility] Work Phone: Evaluation noteNo assessment information available [facility] Work Phone: Evaluation note* Diagnosis Onset Date Resolution Status Lumbosacral radiculopathy at S1 acute Acute otitis media, left acu te Lumbosacral radiculopathy at S1 acute [facility] Work Phone: Evaluation note* Diagnosis Onset Date Resolution Status Lumbosacral radiculopathy at S1 acute Acute otitis media, left acu te Lumbosacral radiculopathy at S1 acute Encounter for screening for malignant neoplasm of colo n acute [facility] Work Phone: Evaluation note* Diagnosis Onset Date Resolution Status Left rotator cuff tear acute Left shoulder pain acute Partial tear of left subscapularis tendon acute [facility] Work Phone: Evaluation note* Diagnosis Onset Date Resolution Status Left rotator cuff tear acute Left shoulder pain acute Partial tear of left subscapularis tendon acute Left rotator cuff tear acute Left shoulder pain acute Partial tear of left subscapularis tendon acute [facility] Work Phone: Evaluation note* Diagnosis Onset Date Resolution Status Left rotator cuff tear acute Left shoulder pain acute Partial tear of left subscapularis tendon acute Left rotator cuff tear acute Left shoulder pain acute Partial tear of left subscapularis tendon acute Left rotator cuff tear acute Left shoulder pain acute Partial tear of left subscapularis tendon acute [facility] Work Phone: Evaluation note* Diagnosis Onset Date Resolution Status Left rotator cuff tear acute Left shoulder pain acute Partial tear of left subscapularis tendon acute Left rotator cuff tear acute Left shoulder pain acute Left rotator cuff tear acute Left shoulder pain acute Partial tear of left subscapularis tendon acute Left rotator cuff tear acute [facility] Work Phone: Hospital Discharge instructions Additional Instructions Range of motion activity as discussed. Ice, rest can also add heat.[facility] Work Phone: Reason for referral (narrative)No reason for referral information availableWPaulding [facility] Work Phone: Chief Complaint and Reason for Visit Chief Complaint ABD PAIN Chief Complaint ABD PAIN RT ESWL, POSS INSERTION STENT Chief Complaint LUMBER SPINE xray LEFT EAR PAIN LOW BACK PAIN [employer]PLOY[employer]S Lumbar spine Reason for Visit Lumbosacral radiculo naldo at S1 Acute otitis media, left Lumbosacral radiculopathy at S1 Chief Complaint LUMBER SPINE xray LEFT EAR PAIN LOW BACK PAIN [employer] Lumbar spine Amb Documentation Reason for Visit Lumbosacral radiculo naldo at S1 Acute otitis media, left Lumbosacral radiculopathy at S1 Encounter for screening for malignant neoplasm of colon Chief Complaint SCREENING SHOULDER Chief Complaint 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 HAS RX 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 CPAP REPAP LEFT SHOUDLER PAIN LEFT SHOULDER Reason for Visit Left rotator cuff te ar Left shoulder pain Partial tear of left subscapularis tendon Chief Complaint CPAP REPAP LEFT SHOUDLER PAIN LEFT SHOULDER PREOP Left shoulder Arthroscopy, subacrom Left shoulder Arthroscopy, subacrom Reason for Visit Left rotator cuff te ar Left shoulder pain Partial tear of left subscapularis tendon Left rotator cuff tear Left shoulder pain Partial tear of left subscapularis tendon Chief Complaint CPAP REPAP LEFT SHOUDLER PAIN LEFT SHOULDER PREOP Left shoulder Arthroscopy, subacrom Left shoulder Arthroscopy, subacrom left shoulder Reason for Visit Left rotator cuff te ar Left shoulder pain Partial tear of left subscapularis tendon Left rotator cuff tear Left shoulder pain Partial tear of left subscapularis tendon Left rotator cuff tear Left shoulder pain Partial tear of left subscapularis tendon Chief Complaint left shoulder left shoulder LEFT SHOULDER LEFT SHOULDER Partial tear left subscapularis tendon/rtc. [id number] Reason for Visit Left rotator cuff te ar Left shoulder pain Partial tear of left subscapularis tendon Left rotator cuff tear Left shoulder pain Left rotator cuff tear Left shoulder pain Partial tear of left subscapularis tendon Left rotator cuff tear Chief Complaint Admit Date RIGHT SHOULDER July 22, 2024 9 :47am R SHOULDER RX HERE REQUESTS SUZANNE Februar y 2024 9:00am RIGHT SHOULDER August 22, 2024 9:03 am Reason for Visit Admit Date Partial tear of left subscapularis tendo n July 22, 2024 9:47am Right rotator cuff tear July 22 9:47am Partial tear of left subscapularis tendo n August 22, 2024 9:03am Right rotator cuff tear August 22, 2024 9:03am Family History No Family History Records Found Relationship Condition Age at Onset Recorded Date/T chaya mother Heart disease Unknown Uncontrolled type 2 diabetes mellitus Unk nown Status post four ves mando coronary artery bypass Unknown Glaucoma Unknown father Stage 4 malignant neoplasm of lung Unknow n Advance Directives No Advanced Directives Records Found Advance Directive Response Recorded Date/ Time Advance Directives No October 12, 016 2:59pm Living Will No November 01, 2021 1 :57pm Power of Channel Cementer Insole Machine No November 01, 2021 1:57pm Advance Directive Response Recorded Date/ Time Advance Directives No October 12 016 2:59pm Living Will No November 10, 2021 9 :28am Power of Channel Cementer Insole Machine No November 10, 2021 9:28am Advance Directive Response Recorded Date/ Time Advance Directives No February 11:34am Living Will No February 23 022 11:34am Power of Channel Cementer Insole Machine No February 23, 2022 11:34am Advance Directive Response Recorded Date/ Time Advance Directives No February 10:34am Living Will No June 22 11:58am Power of Channel Cementer Insole Machine No June 22 023 11:58am Advance Directive Response Recorded Date/ Time Advance Directives No February 11:34am Living Will No November 21, 2022 3 :29pm Power of Channel Cementer Insole Machine No November 21, 2022 3:29pm Advance Directive Response Recorded Date/ Time Advance Directives No April 8:08am Living Will No May 10 8:08am Power of Channel Cementer Insole Machine No May 10, 2023 8:08am Advance Directive Response Recorded Date/ Time Advance Directives No April 8:08am Living Will No May 29, 2 023 1:01pm Power of Channel Cementer Insole Machine No May 29, 2023 1:01pm Advance Directive Response Recorded Date/ Time Advance Directives No June 27, 2023 3:30pm Living Will No June 27 3:30pm Power of Channel Cementer Insole Machine No June 27, 2 024 3:30pm Advance Directive Response Recorded Date/ Time Advance Directives No February 01, 2024 12:35pm Summary Purpose Additional Source Comments Goals (unrecognized section and content) Goals may be documented in a n alternate sectionGoals may be documented in an alternate sectionGoals may be documented in an alternate sectionGoals may be documented in an alternate sectionGoals may be documented in an alternate sectionGoals may be documented in an alternate sectionGoals may be documented in an alternate sectionGoals may be documented in an alternate sectionGoals may be documented in an alternate section Care Teams (unrecognized sec tion and content) Team Status: Active Member Role Status Dates Dr. Caesar Ricketts MD Family Provider Active Dr. Roney Das MD Primary Care Provider Active Team Status: Active Member Role Status Dates Dr. Roney Das MD Primary Care Provider Active Self Referred Attending Provider, Referring Provider A ctive Team Status: Inactive Member Role Status Dates Dr. Roney Das MD Primary Care Provider Active Dr. Romel Graf MD Emergency Provider Active Team Status: Inactive Member Role Status Dates Dr. Roney Das MD Primary Care Provider Active Dr. Romel Graf MD Attending Provider, Emergency Provider Active Team Status: Inactive Member Role Status Dates Dr. Roney Das MD Primary Care Provider Active Dr. Terrance oMrse MD Attending Provider, Referring Pr douglas Active Team Status: Active Member Role Status Dates Dr. Roney Das MD Primary Care Provider Active Health Risk Assessment Attending Provider, Referring P josh Active Team Status: Inactive Member Role Status Dates Dr. Roney Das MD Primary Care Provider Active VENKAT MARR Attending Provider Active Team Status: Inactive Member Role Status Dates Dr. Roney Das MD Primary Care Provider Active VENKAT MARR Attending Provider, Referring Provider Active Team Status: Active Member Role Status Dates Dr. Roney Das MD Primary Care Provider Active VENKAT JOVEL Attending Provider, Referring Provider Active Team Status: Inactive Member Role Status Dates Dr. Roney Das MD Primary Care Provider, Referring Provider Active Ramana Zamora MD Attending Provider Active Team Status: Inactive Member Role Status Dates Dr. Roney Das MD Primary Care Provider Active Dr. Brandyn Christie MD Attending Provider, Referrin g Provider Active Team Status: Active Member Role Status Dates Dr. Roney Das MD Primary Care Provider Active Dr. Elodia Bowser MD Attending Provider Activ e Dr. Adriano Michele MD Referring Provider Active Team Status: Active Member Role Status Dates Dr. Roney Das MD Primary Care Provider Active Ramana Zamora MD Attending Provider, Referring Provider, Other Provider Active Team Status: Inactive Member Role Status Dates Dr. Roney Das MD Primary Care Provider Active Ramana Zamora MD Attending Provider, Referring Prov ider Active Team Status: Inactive Member Role Status Dates Dr. Roney Das MD Primary Care Provider Active VENKAT JOVEL Attending Provider, Referring Provider Active Team Status: Active Member Role Status Dates Dr. Caesar Ricketts MD Family Provider Active Team Status: Inactive Member Role Status Dates Dr. Roney Das MD Referring Provider Active S tart: July 22, 2024 End: July 22, 2024 Ramana Zamora MD Attending Provider Active St art: July 22, 2024 End: July 22, 2024 Team Status: Inactive Member Role Status Dates Dr. Roney Das MD Primary Care Provider Active Start: August 07, 2024 End: August 07, 2024 Ramana Zamora MD Attending Provider Active St art: August 07, 2024 End: August 07, 2024 Ramana Zamora MD Referring Provider Active St art: August 07, 2024 End: August 07, 2024 Team Status: Inactive Member Role Status Dates Ramana Zamora MD Attending Provider Active St art: August 22, 2024 End: August 22, 2024 (unrecognized sect ion and content) No Status Records Found INFORMATION SOURCE (unrecogn ized section and content) DATE CREATED AUTHOR 01/04/2025 [facility] FOR RECORDS PERTAINING TO PATIENTS WHO ARE OR HAVE BEEN ENROLLED IN A CHEMICAL DEPENDENCY/SUBSTANCEABUSE PROGRAM, SOME INFORMATION MAY BE OMITTED. This clinical summary was aggregated from multiple sources. Caution should be exercised in using it in the provision of clinical care. This summary normalizes information from multiple sources, and as a consequence, information in this document may materially change the coding, format and clinical context of patient data. In addition, data may be omitted in some cases. CLINICAL DECISIONS SHOULD BE BASED ON THE PRIMARY CLINICAL RECORDS. [employer] provides no warranty or guarantee of the accuracy or completeness of information in this document.
--- NOTE | 2025-01-06 07:13 | MRI_ITS ---
PROCEDURE: SPINE LUMBAR (ROUTINE) 01/06/2025 REASON FOR EXAM: RADICULOPATHY TECHNIQUE: SPINE LUMBAR (ROUTINE) COMPARISON: Lumbar spine MRI 03/18/2022 FINDINGS: 5 [id number] lumbar-type vertebrae are preserved in height. No evidence of acute fracture or subluxation. Advanced levoscoliotic curvature of the lumbar spine with apex at L2. Stable postoperative changes at multiple levels with mature bone graft fusion of the posterior elements and right-sided spinal ramya spanning the visualized thoracolumbar levels, associated metallic susceptibility artifact. Similar moderate multilevel spondylotic changes with varying degrees of disc desiccation and narrowing, anterior endplate osteophytosis, and hypertrophic facet arthropathy. Conus appears normal in signal and morphology, terminating at T12-L1. Cauda equina are abnormally positioned along the right aspect of the thecal sac secondary to scoliotic curvature. No abnormal clumping or nodularity of the cauda equina. L1-2: No disc bulge, spinal canal or neural foraminal narrowing. L2-3: No disc bulge, spinal canal or neural foraminal narrowing. L3-4: No disc bulge, spinal canal or neural foraminal narrowing. L4-5: Broad-based disc bulge combined with ligamentum flavum/facet hypertrophy results in advanced spinal canal stenosis with focal cauda equina impingement. Advanced right and moderate left neural foraminal stenosis. L5-S1: Spinal canal is difficult to assess due to metallic susceptibility artifact, although there appears to be at least moderate spinal canal narrowing due to broad-based disc bulge and ligamentum flavum/facet hypertrophy, similar to prior. Moderate bilateral neural foraminal narrowing, more advanced on the left. MRI/Spine Lumbar (Routine) IMPRESSION: Similar multilevel chronic postoperative and degenerative changes with advanced lumbar levoscoliosis. Advanced spinal canal stenosis with cauda equina impingement at L4-5, and moderate-advanced bilateral neural foraminal narrowing at L4-5 and L5-S1. Reading Location: [id number]
== END | disposition home or self-care (01) ==
LOC: OPMRI 07:06
PROVIDERS: PCP Nurse Practitioner Adult Health; Referring Provider Anesthesiology Pain Medicine; Visit Provider Anesthesiology Pain Medicine
DX: M54.16 Radiculopathy, lumbar region (principal)
CPT/HCPCS: 72148